=== PATIENT | female | born 1985 | race Caucasian/White ===

== ENCOUNTER 2021-02-23 12:38 | Inpatient (IN) ==
[2021-02-23 13:02] VITALS: BMI 38.2
[2021-02-23] MEDS ORDERED: NS 1000 ML 1,000 ML IV ONE (13:08)
[2021-02-23] MEDS ORDERED: NS 1000 ML 1,000 ML ONE ×3 (13:13→21:19)
--- NOTE | 2021-02-23 13:15 | DR.SOBA ---
HPI Time Seen Time Seen by Provider: 02/23/21 13:07 HPI Comment HPI Comment: Persistent and worsening cough, congestion, fever, chills, body aches and sob for the past 8 days; did a pcr covid test on Thu and does not have results; n/v daily but no stool since Thursday a week ago; quit cig 2014 Complaints Chief Complaint:: PT C/O SHORTNESS OF BREATH, FEVER, C/C/C, N/V. PT STATES SHE HAS NOT BEEN ABLE TO KEEP ANYTHING DOWN FOR DAYS. PT STATES SHE WAS DIAGNOSED LAST THURSDAY WITH COVID. HER SYMPTOMS HAVE JUST BEEN GETTING WROSE COVID-19 Coronavirus risk:travel/contact w/high risk person: Yes Has patient experienced Coronavirus symptoms: Yes Coronavirus symptoms experienced: Fever, Coughing and Shortness of Breath Source History Provided: Patient Mode of Arrival Mode of Arrival: Wheelchair Timing Onset of Chief Complaint: 02/20/21 PMH PMH Past Medical History: Yes Past Medical History: GERD Past Medical History Comment: PCOS Past Surgical History: Yes Surgical History: Hysterectomy Past Surgical History Comment: BACK SURGERY Family History History of Family Medical Conditions: No Social History Does any household member use tobacco: No Alcohol Use: None Do you use any recreational Drugs:: No Lives With: Family Lives Where: Home Travel Risk Coronavirus risk:travel/contact w/high risk person: Yes Has patient experienced Coronavirus symptoms: Yes Coronavirus symptoms experienced: Fever, Coughing and Shortness of Breath Infectious screening In the last 2 months have you had wt loss of >10#?: NO Have you had fever, night sweats or hemotysis?: No Have you traveled outside the country in the last 6 months?: No Isolation: Droplet ROS Review of Systems Eyes: No Symptoms Reported ENTM: No Symptoms Reported Cardiovascular: No Symptoms Reported Genitourinary: No Symptoms Reported Neurological: No Symptoms Reported Integumentary: No Symptoms Reported Hematologic/Lymphatic: No Symptoms Reported Endocrine: No Symptoms Reported Psychiatric: No Symptoms Reported PE Vital Signs Vitals: Temperature 98.9 F Pulse Rate 97 Respiratory Rate 40 Blood Pressure 135/74 O2 Sat by Pulse Oximetry 92 General Limitations: Physical Limitation General Appearance: Alert and In No Apparent Distress (increased wob) Head Head Exam: Normal Inspection Eyes Eye exam: Normal Appearance ENT ENT Exam: Normal Exam Neck Neck Exam: Normal Inspection Chest Chest Inspection: Normal Inspection Respiratory Respiratory Exam: Normal Lung Sounds Bilat, Accessory Muscle Use and Respiratory Distress Respiratory Exam: Bilateral: Clear to Auscultation Cardiovascular Cardiovascular Exam: Regular Rate and Normal Rhythm Abdominal Exam Abdominal Exam: Normal Inspection, Normal Bowel Sounds and Soft Extremities Extremities Exam: Normal Inspection Back Back Exam: Normal Inspection Neurologic Neurological Exam: Alert and Oriented X3 Psychiatric Psychiatric Exam: Normal Affect and Normal Mood Skin Skin Exam: Warm, Dry, Intact and Normal Color MDM Differential Diagnosis Differential Diagnosis: Bronchitis, Pneumonia, Pulmonary embolism, Respiratory Failure, Respiratory Insufficiency and URI COURSE Treatment Treatment: results d/w pt; admission advised ROR Labs Reviewed Result Diagrams: 02/23/21 13:07 02/23/21 13:07 Laboratory: WBC 7.6 X10^3/uL (3.6-10.0) 02/23/21 13:07 RBC 5.04 X10^6/uL (3.5-5.4) 02/23/21 13:07 Hgb 15.3 g/dL (12.0-16.0) 02/23/21 13:07 Hct 44.0 % (36.0-47.0) 02/23/21 13:07 MCV 87.3 fL (80.0-100.0) 02/23/21 13:07 MCH 30.3 pg (27.0-34.0) 02/23/21 13:07 MCHC 34.7 g/dL (33.0-35.0) 02/23/21 13:07 RDW 13.4 % (11.6-16.5) 02/23/21 13:07 Plt Count 228 X10^3/uL (150.0-450.0) 02/23/21 13:07 MPV 8.8 fL (7.4-11.0) 02/23/21 13:07 Neut % (Auto) 76.6 % (42.0-75.0) H 02/23/21 13:07 Lymph % (Auto) 16.9 % (21.0-51.0) L 02/23/21 13:07 Collier % (Auto) 6.1 % (0.0-13.0) 02/23/21 13:07 Eos % (Auto) 0.0 % (0.9-2.9) L 02/23/21 13:07 Baso % (Auto) 0.4 % (0.2-1.0) 02/23/21 13:07 Neut # (Auto) 5.8 x10^3/uL (2.2-4.8) H 02/23/21 13:07 Lymph # (Auto) 1.3 X10^3/uL (1.3-2.9) 02/23/21 13:07 Collier # (Auto) 0.5 x10^3/uL (0.3-0.8) 02/23/21 13:07 Eos # (Auto) 0.0 x10^3/uL (0.0-0.2) 02/23/21 13:07 Baso # (Auto) 0.0 X10^3/uL (0.0-0.1) 02/23/21 13:07 Absolute Nucleated RBC 0.2 /100WBC 02/23/21 13:07 D-Dimer 0.82 ug/ml (0.0-0.57) H* 02/23/21 13:07 Sample Site Rr 02/23/21 13:09 ABG pH 7.510 (7.35-7.45) H 02/23/21 13:09 ABG pCO2 31.0 mmHg (35.0-45.0) L 02/23/21 13:09 ABG pO2 69.0 mmHg (80.0-100.0) L 02/23/21 13:09 ABG HCO3 24.7 mmol/L (22-26) 02/23/21 13:09 ABG O2 Saturation 95.0 % (90-100) 02/23/21 13:09 ABG Base Excess 2.2 mmol/L (-2.0-2.0) H 02/23/21 13:09 Yuval Test Pos 02/23/21 13:09 A-a Gradient 92.0 mmHg 02/23/21 13:09 FiO2 28.0 02/23/21 13:09 Blood Gas Comments Pt [facility] [employer] 02/23/21 13:09 Sodium 141 mmol/L (136-145) 02/23/21 13:07 Corrected Sodium TNP 02/23/21 13:07 Potassium 3.8 mmol/L (3.5-5.1) 02/23/21 13:07 Chloride 101 mmol/L (98-107) 02/23/21 13:07 Carbon Dioxide 28.1 mmol/L (21-32) 02/23/21 13:07 BUN 13 mg/dL (7-18) 02/23/21 13:07 Creatinine 0.69 mg/dL (0.55-1.02) 02/23/21 13:07 Est GFR (MDRD) Af Amer > 60 (>60) 02/23/21 13:07 Est GFR (MDRD) Non-Af > 60 (>60) 02/23/21 13:07 Glucose 106 mg/dL (65-99) H 02/23/21 13:07 Calcium 8.5 mg/dL (8.5-10.1) 02/23/21 13:07 Corrected Calcium TNP 02/23/21 13:07 Ferritin 769 ng/mL (8-252) H 02/23/21 13:07 Total Bilirubin 0.40 mg/dL (0.2-1.0) 02/23/21 13:07 AST 63 Units/L (15-37) H 02/23/21 13:07 ALT 46 Units/L (12-78) 02/23/21 13:07 Alkaline Phosphatase 70 Units/L (46-116) 02/23/21 13:07 C-Reactive Protein 135.10 mg/L (0-3.0) H 02/23/21 13:07 B-Natriuretic Peptide < 5.0 pg/mL (0-79) 02/23/21 13:07 Total Protein 8.3 g/dL (6.4-8.2) H 02/23/21 13:07 Albumin 3.5 g/dL (3.4-5.0) 02/23/21 13:07 Globulin 4.8 g/dL (2.5-4.5) H 02/23/21 13:07 Albumin/Globulin Ratio 0.7 Ratio (1.1-2.1) L 02/23/21 13:07 SARS CoV-2 RNA Rapid PHILLIP Positive (NEGATIVE) A 02/23/21 14:05 XRAY XRAY Interpreted by: Radiologist X-ray Results: cxr: Hazy airspace opacities throughout both lungs compatible history of COVID-19 pneumonia. Opioid Opioid Risk Tool Age (Ming box if 16-45): Yes History of Preadolescent Sexual Abuse: No Total: 1 Total Score Risk Category: Low Risk Copyright: [facility] predicting aberrant behaviors Diagnosis Discharge Problem: COVID-19, Hypoxia, Respiratory insufficiency Bilateral pneumonia Qualifiers: Pneumonia type: due to unspecified organism Lung location: upper lobe of lung Qualified Code(s): J18.9 - Pneumonia, unspecified organism Sepsis Qualifiers: Sepsis type: sepsis due to unspecified organism Sepsis acute organ dysfunction status: with acute organ dysfunction Severe sepsis acute organ dysfunction type: acute respiratory failure Acute respiratory failure type: with hypoxia Severe sepsis shock status: without septic shock Qualified Code(s): A41.9 - Sepsis, unspecified organism Instructions Instructions: Community-Acquired Pneumonia, Adult, [id number] Forms: Patient Portal Social Distancing
[2021-02-23 13:20] LABS: ABG ALLEN TEST POS; ABG BASE EXCESS 2.2 mmol/L (-2.0-2.0); ABG HCO3 24.7 mmol/L (22-26)
[2021-02-23 13:21] LABS: BASOPHILS % (AUTO) 0.4 % (0.2-1.0); HEMOGLOBIN 15.3 g/dL (12.0-16.0); LYMPHOCYTES # (AUTO) 1.3 X10^3/uL (1.3-2.9); LYMPHOCYTES % (AUTO) 16.9 % (21.0-51.0); MEAN CORPUSCULAR HEMOGLOBIN 30.3 pg (27.0-34.0); MEAN CORPUSCULAR HGB CONC 34.7 g/dL (33.0-35.0); MEAN CORPUSCULAR VOLUME 87.3 fL (80.0-100.0); MEAN PLATELET VOLUME 8.8 fL (7.4-11.0); MONOCYTES # (AUTO) 0.5 x10^3/uL (0.3-0.8); MONOCYTES % (AUTO) 6.1 % (0.0-13.0); NEUTROPHILS # (AUTO) 5.8 x10^3/uL (2.2-4.8); NEUTROPHILS % (AUTO) 76.6 % (42.0-75.0); PLATELET COUNT 228 X10^3/uL (150.0-450.0); RED BLOOD COUNT 5.04 X10^6/uL (3.5-5.4); RED CELL DISTRIBUTION WIDTH 13.4 % (11.6-16.5); WHITE BLOOD COUNT 7.6 X10^3/uL (3.6-10.0)
[2021-02-23 13:38] LABS: ALANINE AMINOTRANSFERASE 46 Units/L (12-78); ALKALINE PHOSPHATASE 70 Units/L (46-116); ASPARTATE AMINO TRANSFERASE 63 Units/L (15-37); CARBON DIOXIDE 28.1 mmol/L (21-32); CHLORIDE 101 mmol/L (98-107); SODIUM 141 mmol/L (136-145); TOTAL PROTEIN 8.3 g/dL (6.4-8.2)
--- NOTE | 2021-02-23 13:40 | RAD ---
HISTORYCOVID POSITIVE, SOB, FEVER, HYPOXIA HYSTERECTOMY; BACK SURGERYSTUDYCHEST, 1 VIEWCOMPARISONNoneFINDINGSThe trachea is midline. The cardiac silhouette is unremarkable. The lungs demonstrate hazy infiltrates scattered throughout both lungs compatible history of COVID-19 pneumonia. The bony thorax is unremarkable.IMPRESSIONHazy airspace opacities throughout both lungs compatible history of COVID-19 pneumonia.Electronically signed by: JOSÉ MIGUEL COLE (Feb 23, 2021 13:38:17)
[2021-02-23 13:55] LABS: ALBUMIN 3.5 g/dL (3.4-5.0); BLOOD UREA NITROGEN 13 mg/dL (7-18); CALCIUM 8.5 mg/dL (8.5-10.1); CREATININE 0.69 mg/dL (0.55-1.02); eGFR NON BLACK RACES > 60 (>60)
[2021-02-23] MEDS ORDERED: DECADRON INJ IVP ONE (14:16)
[2021-02-23] MEDS ORDERED: ZOSYN VIAL 3.375 GRAMS 3.375 G in NS 100 ML IV + SPIKE MINIBAG* 100 ML IV ONE (14:16)
[2021-02-23] MEDS ORDERED: DECADRON INJ ONE (14:27)
[2021-02-23] MEDS ORDERED: ZOSYN VIAL 3.375 GRAMS IV ONE ×2 (14:27→21:19)
[2021-02-23] MEDS ORDERED: NS 100 ML IV + SPIKE MINIBAG* 100 ML IV ONE ×2 (14:27→21:19)
[2021-02-23] MEDS ORDERED: TUSSIONEX PENNKINETIC SUSP PO ONE (14:34)
[2021-02-23] MEDS ORDERED: ZOFRAN INJ 4 MG VIAL IVP ONE (14:35)
[2021-02-23] MEDS ORDERED: ZOFRAN INJ 4 MG VIAL ONE (14:36)
[2021-02-23] MEDS ORDERED: TUSSIONEX PENNKINETIC SUSP ONE (14:36)
[2021-02-23] MEDS ORDERED: NS 1000 ML 1,000 ML IV SCH (15:00)
[2021-02-23] MEDS ORDERED: REMDESIVIR 200 MG in NS 100 ML IV 140 ML IV ONE (15:23)
[2021-02-23] MEDS ORDERED: REMDESIVIR IV ONE (15:36)
[2021-02-23] MEDS ORDERED: NS 250 ML IV 250 ML IV ONE (15:37)
[2021-02-23] MEDS: NS 1000 ML 1,000 ML IV SCH (17:37)
[2021-02-23] MEDS: ZOSYN VIAL 3.375 GRAMS 3.375 G in NS 100 ML IV + SPIKE MINIBAG* 100 ML IV SCH ×2 (17:38→22:17)
[2021-02-23] MEDS ORDERED: HumuLIN R SUBCUT PRN (20:29)
[2021-02-23] MEDS ORDERED: PHARMACY CONSULT - IVERMECTIN XX SCH (21:00)
[2021-02-23] MEDS: ACCUNEB 1.25 MG NEBULE NEB SCH (21:00)
[2021-02-23] MEDS: BROVANA IN SCH (21:00)
[2021-02-23] MEDS ORDERED: MELATONIN PO SCH (21:00)
[2021-02-23] MEDS: PULMICORT NEB TX 0.5 MG NEB SCH (21:00)
[2021-02-23] MEDS ORDERED: PROTONIX TAB 40 MG PO ONE (21:17)
[2021-02-23] MEDS ORDERED: LIPITOR TAB 80 MG ONE (21:18)
[2021-02-23] MEDS ORDERED: PERIACTIN TAB 4 MG ONE (21:18)
[2021-02-23] MEDS ORDERED: FLUVOXAMINE MALEATE ONE (21:18)
[2021-02-23] MEDS ORDERED: SOLU-Medrol 40 MG VIAL ONE (21:18)
[2021-02-23] MEDS ORDERED: THIAMINE HCL INJ ONE (21:18)
[2021-02-23] MEDS ORDERED: SINGULAIR TAB 10 MG ONE (21:18)
[2021-02-23] MEDS ORDERED: PEPCID TAB 40 MG ONE (21:18)
[2021-02-23] MEDS ORDERED: TESSALON PERLES PO ONE (21:18)
[2021-02-23] MEDS ORDERED: MELATONIN ONE (21:19)
[2021-02-23] MEDS ORDERED: NS 50 ML IV 50 ML IV ONE (21:19)
[2021-02-23] MEDS ORDERED: ASCORBIC ACID INJ MULTI-DOSE VIAL IV ONE (21:19)
[2021-02-23] MEDS: ASCORBIC ACID INJ MULTI-DOSE VIAL 1,500 MG in NS 50 ML IV 50 ML IV SCH (22:13)
[2021-02-23] MEDS: LIPITOR TAB 80 MG PO SCH (22:14)
[2021-02-23] MEDS: PEPCID TAB 40 MG PO SCH (22:14)
[2021-02-23] MEDS: FLUVOXAMINE MALEATE PO SCH (22:14)
[2021-02-23] MEDS: SINGULAIR TAB 10 MG PO SCH (22:15)
[2021-02-23] MEDS: PROTONIX TAB 40 MG PO SCH (22:15)
[2021-02-23] MEDS: SOLU-Medrol 40 MG VIAL IVP SCH (22:16)
[2021-02-23] MEDS: PERIACTIN TAB 4 MG PO SCH (22:16)
[2021-02-23] MEDS: THIAMINE HCL INJ IVP SCH (22:16)
[2021-02-23] MEDS: TESSALON PERLES PO SCH (22:17)
[2021-02-23 22:24] LABS: CKMB % 0.2 % (<4); CREATINE KINASE 490 Units/L (26-192); CREATINE KINASE MB < 1.0 ng/mL (0-4.0); TROPONIN I < 0.02 ng/mL (0-1.5)
[2021-02-23] MEDS ORDERED: LOVENOX INJ 30 MG SYR SC ONE (22:35)
[2021-02-24] MEDS: LOVENOX INJ 30 MG SYR SC SCH ×3 (00:31→20:34)
--- NOTE | 2021-02-24 00:31 | CT ---
PROCEDURE: CTA Chest .HISTORY: COVID and elevated D-dimer.TECHNIQUE: Axial images were performed through the chest with the administration of IV contrast with multiplanar reformations . 3D and MIPS reconstructions were performed and reviewed. Dose reduction techniques including Automated Exposure Control (AEC) and adjustment of mA and kV were utilized .COMPARISON: None .TECHNICAL QUALITY: Satisfactory .FINDINGS:Normal thoracic aorta with no atherosclerosis, aneurysm, or dissection.No evidence of pulmonary embolus.Mediastinum and hilar regions show no masses or lymphadenopathy.Normal size heart with no pericardial fluid.Moderate patchy ground-glass consolidation both lung conner consistent with COVID-19 pneumonia with no pleural fluid, mass, or pneumothorax.Visualized upper abdomen shows no significant abnormality.No acute bony abnormality.IMPRESSION:1. No pulmonary embolus or aortic dissection.2. Moderate bilateral COVID-19 pneumonia.Electronically signed by: Oc Grimes (Feb 24, 2021 00:28:51)
[2021-02-24] MEDS: IVERMECTIN PO SCH ×2 (00:43→21:13)
[2021-02-24] MEDS: ASCORBIC ACID INJ MULTI-DOSE VIAL 1,500 MG in NS 50 ML IV 50 ML IV SCH ×4 (03:10→20:30)
[2021-02-24] MEDS ORDERED: ZOSYN VIAL 3.375 GRAMS IV ONE ×2 (03:48→12:25)
[2021-02-24] MEDS ORDERED: TESSALON PERLES PO ONE ×2 (03:48→12:25)
[2021-02-24] MEDS ORDERED: SOLU-Medrol 40 MG VIAL ONE ×2 (03:48→12:25)
[2021-02-24] MEDS ORDERED: ASCORBIC ACID INJ MULTI-DOSE VIAL IV ONE ×3 (03:49→12:26)
[2021-02-24] MEDS ORDERED: NS 100 ML IV + SPIKE MINIBAG* 100 ML IV ONE ×2 (03:49→12:26)
[2021-02-24] MEDS ORDERED: NS 50 ML IV 50 ML IV ONE (03:49)
[2021-02-24] MEDS: NS 1000 ML 1,000 ML IV SCH ×2 (05:23→20:30)
[2021-02-24 05:24] LABS: ABG BASE EXCESS 1.7 mmol/L (-2.0-2.0); ABG HCO3 26.6 mmol/L (22-26)
[2021-02-24] MEDS: TESSALON PERLES PO SCH ×3 (05:24→21:12)
[2021-02-24] MEDS: PERIACTIN TAB 4 MG PO SCH ×3 (05:24→21:12)
[2021-02-24] MEDS: ZOSYN VIAL 3.375 GRAMS 3.375 G in NS 100 ML IV + SPIKE MINIBAG* 100 ML IV SCH ×3 (05:24→21:14)
[2021-02-24 05:25] LABS: ABG ALLEN TEST POS
[2021-02-24] MEDS: SOLU-Medrol 40 MG VIAL IVP SCH ×3 (05:25→21:12)
[2021-02-24 06:22] LABS: BASOPHILS % (AUTO) 0.2 % (0.2-1.0); HEMATOCRIT 37.6 % (36.0-47.0); LYMPHOCYTES % (AUTO) 28.2 % (21.0-51.0); MEAN CORPUSCULAR HGB CONC 34.5 g/dL (33.0-35.0); MEAN CORPUSCULAR VOLUME 86.9 fL (80.0-100.0); MEAN PLATELET VOLUME 8.9 fL (7.4-11.0); MONOCYTES # (AUTO) 0.1 x10^3/uL (0.3-0.8); MONOCYTES % (AUTO) 3.8 % (0.0-13.0); NEUTROPHILS # (AUTO) 2.5 x10^3/uL (2.2-4.8); NEUTROPHILS % (AUTO) 67.8 % (42.0-75.0); PLATELET COUNT 245 X10^3/uL (150.0-450.0); RED BLOOD COUNT 4.33 X10^6/uL (3.5-5.4); RED CELL DISTRIBUTION WIDTH 13.4 % (11.6-16.5); WHITE BLOOD COUNT 3.7 X10^3/uL (3.6-10.0)
[2021-02-24 06:23] LABS: ALANINE AMINOTRANSFERASE 51 Units/L (12-78); ALBUMIN 2.7 g/dL (3.4-5.0); ALKALINE PHOSPHATASE 58 Units/L (46-116); ASPARTATE AMINO TRANSFERASE 68 Units/L (15-37); BLOOD UREA NITROGEN 10 mg/dL (7-18); CALCIUM 7.8 mg/dL (8.5-10.1); CARBON DIOXIDE 27.1 mmol/L (21-32); CHLORIDE 106 mmol/L (98-107); COR CA(FOR HYPOALB) 8.8 mg/dL (8.5-10.1); COR NA(FOR HYPERGLY) 143 mmol/L (136-145); CREATININE 0.73 mg/dL (0.55-1.02); SODIUM 142 mmol/L (136-145); TOTAL PROTEIN 6.9 g/dL (6.4-8.2); eGFR NON BLACK RACES > 60 (>60)
[2021-02-24] MEDS ORDERED: FLUVOXAMINE MALEATE ONE (07:08)
[2021-02-24] MEDS ORDERED: THIAMINE HCL INJ ONE (07:08)
[2021-02-24] MEDS ORDERED: ZyrTEC TAB 10 MG ONE (07:08)
[2021-02-24] MEDS ORDERED: PROTONIX TAB 40 MG PO ONE (07:08)
--- NOTE | 2021-02-24 07:08 | RAD ---
HISTORYCOVID-19 SOBSTUDYPortable AP [id number] normal heart size and contour. Persistent bilateral pulmon jeromy infiltrates are present, similar in the right lung and slightly increased in the left lung. No pl eural fluid or pneumothorax seen.IMPRESSIONPersistent bilateral pneumonia, with slight interval progr ession.Electronically signed by: CUBA MCGARRY (Feb 24, 2021 07:06:02)
[2021-02-24] MEDS ORDERED: PEPCID TAB 40 MG ONE (07:09)
[2021-02-24] MEDS ORDERED: VITAMIN D3 125 mcg (5,000 UNITS) ONE (07:09)
[2021-02-24] MEDS ORDERED: NS 100 ML IV 100 ML ONE ×3 (07:09→12:26)
[2021-02-24] MEDS ORDERED: COLACE CAP 100 MG PO ONE (07:09)
[2021-02-24] MEDS ORDERED: ZINC SULFATE ONE (07:09)
[2021-02-24] MEDS ORDERED: REMDESIVIR IV ONE (07:09)
[2021-02-24] MEDS ORDERED: LOVENOX INJ 30 MG SYR SC ONE (07:09)
[2021-02-24] MEDS ORDERED: NS 250 ML IV 250 ML IV ONE (07:10)
[2021-02-24] MEDS: COLACE CAP 100 MG PO SCH ×2 (08:34→20:32)
[2021-02-24] MEDS: FLUVOXAMINE MALEATE PO SCH ×2 (08:35→20:32)
[2021-02-24] MEDS: MILK OF MAGNESIA PO SCH ×2 (08:36→20:35)
[2021-02-24] MEDS: REMDESIVIR 100 MG in NS 250 ML IV 250 ML IV SCH (08:37)
[2021-02-24] MEDS: PROTONIX TAB 40 MG PO SCH ×2 (08:37→20:33)
[2021-02-24] MEDS: PEPCID TAB 40 MG PO SCH ×2 (08:37→20:33)
[2021-02-24] MEDS: THIAMINE HCL INJ IVP SCH ×2 (08:38→20:34)
[2021-02-24] MEDS: VITAMIN D3 125 mcg (5,000 UNITS) PO SCH (08:38)
[2021-02-24] MEDS: ZINC SULFATE PO SCH (08:39)
[2021-02-24] MEDS: ZyrTEC TAB 10 MG PO SCH (08:40)
[2021-02-24] MEDS ORDERED: DECADRON INJ IV SCH (09:00)
[2021-02-24] MEDS ORDERED: REMDESIVIR 100 MG in NS 250 ML IV 250 ML IV SCH (09:00)
[2021-02-24 09:17] LABS: BILIRUBIN,URINE NEGATIVE (NEGATIVE); BLOOD/HEMOGLOBIN,URINE NEGATIVE (NEGATIVE); GLUCOSE, URINE NEGATIVE (NEGATIVE); KETONES,URINE 4+ (NEGATIVE); LEUKOCYTE ESTERASE ,URINE NEGATIVE (NEGATIVE); NITRITES,URINE NEGATIVE (NEGATIVE); PROTEIN,URINE 2+ (NEGATIVE); UROBILINOGEN,URINE NORMAL (NORMAL)
[2021-02-24] MEDS: ACCUNEB 1.25 MG NEBULE NEB SCH (09:27)
[2021-02-24] MEDS: PULMICORT NEB TX 0.5 MG NEB SCH ×2 (09:27→20:12)
[2021-02-24] MEDS: BROVANA IN SCH ×2 (09:27→20:12)
[2021-02-24 09:28] LABS: APPEARANCE,URINE CLEAR (CLEAR); BACTERIA,URINE NEGATIVE /HPF (NEGATIVE); COLOR,URINE YELLOW (YELLOW); MUCUS,URINE FEW /HPF (NEGATIVE); SQUAMOUS EPITHELIAL CELL,UR RARE /HPF (NEGATIVE)
--- NOTE | 2021-02-24 11:35 | DR.H&P ---
H&P - History & Physical for Day of: H&P Date: 02/23/21 - Chief Complaint Chief Complaint: FEVER, C/C/C, SOB - History of Present Illness History of Present Illness: IS A 35 YEAR OLD WHITE FEMALE. SHE PRESENTED TO THE ER WITH COMPLAINTS OF A NON-PRODUCTIVE COUGH, SHORTNESS OF BREATH, FEVER, AND GENERALIZED BODY ACHES. SHE ALSO ADMITS TO NAUSEA AND VOMITING. PATIENT REPORTS BEING TESTED POSITIVE FOR COVID-19 4 DAYS AGO, BUT DOES NOT KNOW THE RESULTS AT THIS TIME. SHE REPORTS THAT SYMPTOMS STARTED ABOUT 8-9 DAYS AGO. HER PMH INCLUDES: GERD, PCOS. AUSCULTATION OF BILATERAL LUNG VARGAS REVEALED SCATTERED RHONCHI. ON ARRIVAL TO THE ER, VITALS WERE 98.6-524-41HV-82%-129/74. SHE WAS PLACED ON OXYGEN VIA NASAL CANNULA AT 3LPM. SATURATIONS INCREASED TO 92%. WHILE AMBULATING, SATURATIONS DECREASE TO THE 70s ON 3LPM. LABS WERE OBTAINED. ABNORMAL LAB VALUES INCLUDED THE FOLLOWING: E-DIMER 0.82, GLUCOSE 106, FERRITIN 769, AST 63, CRP 135.10, TOTAL PROTEIN 8.3, GLOBULIN 4.8. COVID-19 POSITIVE. AN ABG WAS OBTAINED AND REVEALED: PH 7.510, PC02 31, P02 69, HC03 24.7, 02 SAT 95, BASE EXCESS 2.2, A-A GRADIENT 92, FI02 28. BLOOD CULTURES WERE SET UP. CHEST XRAY WAS OBTAINED AND REVEALED: Hazy airspace opacities throughout both lungs compatible history of COVID-19 pneumonia. CHEST CTA OBTAINED AND REVEALED: 1. No pulmonary embolus or aortic dissection. 2. Moderate bilateral COVID-19 pneumonia. EKG REVEALED: SINUS RHYTHM WITH HR 97. IN THE ER, SHE WAS GIVEN A NORMAL SALINE BOLUS, ZOSYN 3.375G IV X 1, DECADRON 4MG IV X 1, TUSSIONEX 5ML PO X 1, ZOFRAN 4MG IV X 1, REMDESIVIR 200MG IV X 1. SHE WAS ADMITTED TO THE HOSPITAL FOR FURTHER EVALUATION AND TREATMENT OF PNEUMONIA DUE TO COVID-19 AND HYPOXIA. HE WAS STARTED ON NS AT 80 ML/HR, ZOSYN 3.375G IV TID, REMDESIVIR 100MG IV DAILY, ASCORBIC ACID 1500MG IV Q6H, ALBUTEROL NEBS QID, PULMICORT NEBS BID, BROVANA INHALER BID, SOLU-MEDROL 80MG IV8H, FLUVOXAMINE 50MG PO BID, CYPROHEPTADINE 8MG PO TID, LOVENOX 30MG SC Q12H, LIPITOR 80MG PO HS, TESSALON PERLES 200MG PO TID, CETIRIZINE 10MG PO DAILY, IVERMECTIN, PEPCID 40MG PO BID, ROBITUSSIN DM 10ML PO QID PRN, HUMULIN R SLIDING SCALE, SINGULAIR 10MG PO HS, PROTONIX 40MG PO BID, MILK OF MAGNESIA 30ML PO BID, COLACE 100MG PO BID, THIAMINE 200MG IV BID, AND ZINC SULFATE 220MG PO BID. OTHERWISE, WE PLAN TO FOLLOW UP WITH AM LABS AND CHEST XRAY AND CONTINUE TO MONITOR. WE WILL ALSO OBTAIN A CHEST CTA TO RULE OUT PE AND AN ECHO. TIME SPENT ON CLINICAL ASSESSMENT, REVIEWING LABS AND IMAGING, DECISION MAKING, AND DOCUMENTATION GREATER THAN 75 MINUTES. - Past Medical History Past Medical History: GERD Additional Medical History: PCOS - Past Surgical History Surgical History: Hysterectomy, Ortho Surgery (BACK SURGERY ) - Family History Family Medical History: Heart Failure, Hypertension - Social History Does any household member use tobacco: No Alcohol Use: None Drug Use: None - Medications Home Medications: prednisone Adverse Reaction (Verified 02/23/21 13:08) anxiety, mouth ulcer CONTINUE taking the following medications NK 02/24/21 [History] - Review of Systems Constitutional: See HPI, Fever, Chills, Weakness Eyes: No Symptoms Reported ENT: No Symptoms Reported Respiratory: Cough, Shortness of Breath, SOB with Excertion Cardiovascular: No Symptoms Reported Gastrointestinal: No Symptoms Reported Genitourinary: No Symptoms Reported Musculoskeletal: No Symptoms Reported Skin: No Symptoms Reported Neurological: Weakness - Physical Exam Vital Signs: Temperature 98.1 F Pulse Rate [Left Brachial] 75 Pulse Rate 65 Respiratory Rate 32 Blood Pressure [Left Arm] 123/68 Blood Pressure 136/88 O2 Sat by Pulse Oximetry 86 Oriented: Normal Eyes: Normal Ear: Normal Nose: Normal Throat: Normal Respiratory: Diminished Throughout, Rhonchi Throughout Cardiovascular: Tachycardia : Normal Auscultation: Bowel Sounds: Normal Palpation: Normal Tenderness: Normal Skin: Normal Musculoskeletal: Normal Psychiatric: Normal Mood Description: Calm Affect: Normal Speech Pattern: Clear - Assessment/Plan (1) Pneumonia due to COVID-19 virus Status: Acute Plan: ADMIT, SUPPLEMENTAL OXYGEN, NS AT 80 ML/HR, ZOSYN 3.375G IV TID, REMDESIVIR 100MG IV DAILY, ASCORBIC ACID 1500MG IV Q6H, ALBUTEROL NEBS QID, PULMICORT NEBS BID, BROVANA INHALER BID, SOLU-MEDROL 80MG IV8H, FLUVOXAMINE 50MG PO BID, CYPROHEPTADINE 8MG PO TID, LOVENOX 30MG SC Q12H, LIPITOR 80MG PO HS, TESSALON PERLES 200MG PO TID, CETIRIZINE 10MG PO DAILY, IVERMECTIN, PEPCID 40MG PO BID, ROBITUSSIN DM 10ML PO QID PRN, HUMULIN R SLIDING SCALE, SINGULAIR 10MG PO HS, PROTONIX 40MG PO BID, MILK OF MAGNESIA 30ML PO BID, COLACE 100MG PO BID, THIAMINE 200MG IV BID, AND ZINC SULFATE 220MG PO BID. (2) Hypoxia Status: Acute - Allergies Allergies/Adverse Reactions: Allergies Allergy/AdvReac Type Severity Reaction Status Date / Time prednisone AdvReac anxiety, Verified 02/23/21 13:08 mouth ulcer
[2021-02-24] MEDS: SNACK - Diabetic Appropriate PO SCH (20:30)
[2021-02-24] MEDS: SINGULAIR TAB 10 MG PO SCH (20:33)
[2021-02-24] MEDS: LIPITOR TAB 80 MG PO SCH (20:34)
[2021-02-25] MEDS: ASCORBIC ACID INJ MULTI-DOSE VIAL 1,500 MG in NS 50 ML IV 50 ML IV SCH ×4 (02:00→21:03)
[2021-02-25 04:37] LABS: ABG BASE EXCESS 3.2 mmol/L (-2.0-2.0); ABG HCO3 27.9 mmol/L (22-26)
[2021-02-25 04:39] LABS: ABG ALLEN TEST POS
[2021-02-25] MEDS: TESSALON PERLES PO SCH ×3 (05:06→21:04)
[2021-02-25] MEDS: ZOSYN VIAL 3.375 GRAMS 3.375 G in NS 100 ML IV + SPIKE MINIBAG* 100 ML IV SCH ×3 (05:06→21:06)
[2021-02-25] MEDS: SOLU-Medrol 40 MG VIAL IVP SCH ×3 (05:06→21:03)
[2021-02-25] MEDS: PERIACTIN TAB 4 MG PO SCH ×3 (05:06→21:05)
[2021-02-25 07:28] LABS: BASOPHILS % (AUTO) 0.2 % (0.2-1.0); HEMATOCRIT 36.5 % (36.0-47.0); HEMOGLOBIN 12.5 g/dL (12.0-16.0); LYMPHOCYTES # (AUTO) 1.8 X10^3/uL (1.3-2.9); LYMPHOCYTES % (AUTO) 17.7 % (21.0-51.0); MEAN CORPUSCULAR HEMOGLOBIN 29.8 pg (27.0-34.0); MEAN CORPUSCULAR HGB CONC 34.2 g/dL (33.0-35.0); MEAN CORPUSCULAR VOLUME 87.1 fL (80.0-100.0); MONOCYTES # (AUTO) 0.6 x10^3/uL (0.3-0.8); MONOCYTES % (AUTO) 5.8 % (0.0-13.0); NEUTROPHILS # (AUTO) 7.9 x10^3/uL (2.2-4.8); NEUTROPHILS % (AUTO) 76.3 % (42.0-75.0); PLATELET COUNT 268 X10^3/uL (150.0-450.0); RED CELL DISTRIBUTION WIDTH 13.5 % (11.6-16.5); WHITE BLOOD COUNT 10.4 X10^3/uL (3.6-10.0)
[2021-02-25 07:36] LABS: ALANINE AMINOTRANSFERASE 68 Units/L (12-78); ALBUMIN 2.4 g/dL (3.4-5.0); ALKALINE PHOSPHATASE 52 Units/L (46-116); ASPARTATE AMINO TRANSFERASE 65 Units/L (15-37); BLOOD UREA NITROGEN 18 mg/dL (7-18); CALCIUM 7.7 mg/dL (8.5-10.1); CARBON DIOXIDE 28.8 mmol/L (21-32); CHLORIDE 110 mmol/L (98-107); COR NA(FOR HYPERGLY) 148 mmol/L (136-145); CREATININE 0.76 mg/dL (0.55-1.02); SODIUM 147 mmol/L (136-145); TOTAL PROTEIN 6.1 g/dL (6.4-8.2); eGFR NON BLACK RACES > 60 (>60)
--- NOTE | 2021-02-25 08:04 | RAD ---
HISTORYSOBSTUDYCHEST, 1 [id number]/2021FINDINGSThe lungs are better inflated than on the prior study.Patchy bilateral areas of opacity are consistent with bronchopneumonia. No pleural effusion or pneumothorax.The heart size is magnified.Bones are unremarkable.IMPRESSION1. Improved aeration2. Unchanged bronchopneumoniaElectronically signed by: Conner Ortiz (Feb 25, 2021 08:02:45)
[2021-02-25] MEDS: PULMICORT NEB TX 0.5 MG NEB SCH ×2 (08:25→20:25)
[2021-02-25] MEDS: BROVANA IN SCH ×2 (08:25→20:25)
[2021-02-25] MEDS: REMDESIVIR 100 MG in NS 250 ML IV 250 ML IV SCH (09:26)
[2021-02-25] MEDS: ZyrTEC TAB 10 MG PO SCH (09:27)
[2021-02-25] MEDS: ZINC SULFATE PO SCH (09:27)
[2021-02-25] MEDS: PROTONIX TAB 40 MG PO SCH ×2 (09:28→21:05)
[2021-02-25] MEDS: VITAMIN D3 125 mcg (5,000 UNITS) PO SCH (09:28)
[2021-02-25] MEDS: THIAMINE HCL INJ IVP SCH ×2 (09:28→21:05)
[2021-02-25] MEDS: MILK OF MAGNESIA PO SCH ×2 (09:29→21:05)
[2021-02-25] MEDS: LOVENOX INJ 30 MG SYR SC SCH ×2 (09:29→21:05)
[2021-02-25] MEDS: PEPCID TAB 40 MG PO SCH ×2 (09:29→21:05)
[2021-02-25] MEDS: FLUVOXAMINE MALEATE PO SCH ×2 (09:30→21:04)
[2021-02-25] MEDS: COLACE CAP 100 MG PO SCH ×2 (09:30→21:04)
[2021-02-25] MEDS ORDERED: NS 100 ML IV 100 ML ONE ×2 (10:48→14:29)
[2021-02-25] MEDS: ACCUNEB 1.25 MG NEBULE NEB SCH ×3 (11:45→20:25)
[2021-02-25] MEDS: MUCOMYST (RESPIRATORY USE ONLY) NEB SCH ×3 (11:45→20:25)
[2021-02-25] MEDS: NS 1000 ML 1,000 ML IV SCH ×2 (18:16→21:03)
[2021-02-25] MEDS: SNACK - Diabetic Appropriate PO SCH (20:00)
[2021-02-25] MEDS: SINGULAIR TAB 10 MG PO SCH (21:04)
[2021-02-25] MEDS: LIPITOR TAB 80 MG PO SCH (21:05)
--- NOTE | 2021-02-25 21:55 | PCM.PROG ---
Progress Note - Progress Note for Day of Date of Exam: 02/25/21 - Subjective Subjective: MS. SANDERS WAS ADMITTED FOR TREATMENT OF COVID PNEUMONIA AND HYPOXIA. TODAY, SHE IS ALERT AND ORIENTED, LYING IN THE BED ON MORNING ROUNDS. SHE IS CURRENTLY UTILIZING HEATED HIGH FLOW OXYGEN AT 95%. SHE CONTINUES WITH COMPLAINTS OF SHORTNESS OF BREATH AND WEAKNESS TODAY. SHORTNESS OF BREATH AND COUGH SLIGHTLY INCREASED. HER SATURATIONS HAVE BEEN 84-92% THIS MORNING AND THROUGHOUT THE NIGHT. ON EXAMINATION, HEART IS REGULAR IN RATE AND RHYTHM. BILATERAL LUNGS ARE NOTED WITH WHEEZING THROUGHOUT. ABDOMEN IS ROUND, SOFT, AND NON-TENDER WITH NORMAL BOWEL SOUNDS NOTED IN ALL QUADRANTS. HIS VITALS THIS MORNING ARE: 98.4-62-21-88%-110/62. LABS WERE OBTAINED. ABNORMAL LAB VALUES INCLUDE THE FOLLOWING: WBC 10.4, SODIUM 147, POTASSIUM 3.2, CHLORIDE 110, GLUCOSE 146, CALCIUM 7.7, FERRITIN 800, AST 65, CRP 32.10, BNP 136, TOTAL PROTEIN 6.1, ALBUMIN 2.4. BLOOD CULTURES ARE PENDING. ABG REVEALED: PH 7.430, PC02 42, P02 49, HC03 27.9, 02 SAT 85, BASE EXCESS 3.2, A-A GRADIENT 562, FI02 93. BLOOD CULTURES ARE PENDING. A CHEST XRAY WAS OBTAINED AND REVEALED: 1. Improved aeration 2. Unchanged bronchopneumonia. CHEST CTA WAS OBTAINED YESTERDAY AND REVEALED: 1. No pulmonary embolus or aortic dissection. 2. Moderate bilateral COVID-19 pneumonia. SHE IS CURRENTLY RECEIVING NS AT 80 ML/HR, ZOSYN 3.375G IV TID, REMDESIVIR 100MG IV DAILY, ASCORBIC ACID 1500MG IV Q6H, ALBUTEROL NEBS QID, PULMICORT NEBS BID, BROVANA INHALER BID, SOLU-MEDROL 80MG IV8H, FLUVOXAMINE 50MG PO BID, CYPROHEPTADINE 8MG PO TID, LOVENOX 30MG SC Q12H, LIPITOR 80MG PO HS, TESSALON PERLES 200MG PO TID, CETIRIZINE 10MG PO DEE Y, IVERMECTIN, PEPCID 40MG PO BID, ROBITUSSIN DM 10ML PO QID PRN, HUMULIN R SLIDING SCALE, SINGULAIR 10MG PO HS, PROTONIX 40MG PO BID, MILK OF MAGNESIA 30ML PO BID, COLACE 100MG PO BID, THIAMINE 200MG IV BID, AND ZINC SULFATE 220MG PO BID. WE WILL CONTINUE WITH CURRENT PLAN OF CARE TODAY AND ATTEMPT TO WEAN DOWN OXYGEN SHE TOLERATES IT. WE WILL ADD MUCOMYST TO NEBULIZER TREATMENTS. OTHERWISE, WE WILL FOLLOW UP WITH AM LABS, CHEST XRAY, ABG, AND CONTINUE TO MONITOR. TIME SPENT ON CLINICAL ASSESSMENT, REVIEWING LABS AND IMAGING, DECISION MAKING, AND DOCUMENTATION GREATER THAN 45 MINUTES. - Past Medical Family Social History Past Med/Fam/Surg Hx: No changes since H&P Allergies: Allergies prednisone Adverse Reaction (Verified 02/23/21 13:08) anxiety, mouth ulcer high doses - Review of Systems ROS: No change since H&P - Vital Signs and I&O's Vital Signs: Temperature 97.7 F Pulse Rate [Left Brachial] 75 Pulse Rate 56 Respiratory Rate 26 Blood Pressure [Left Arm] 123/68 Blood Pressure 113/66 O2 Sat by Pulse Oximetry 87 Intake and Output: Intake & Output 02/23/21 02/24/21 02/25/21 02/26/21 11:59 11:59 11:59 11:59 Intake Total 2668 / 2668 2878 / 2878 330 / 330 Output Total 1950 / 1950 500 / 500 Balance 2668 / 2668 928 / 928 -170 / -170 - Physical Exam Oriented: Normal Eyes: Normal Ear: Normal Nose: Normal Throat: Normal Respiratory: Generalized, Diminished, Wheezes Cardiovascular: Normal : Normal Auscultation: Bowel Sounds: Normal Palpation: Normal Tenderness: Normal Skin: Normal Musculoskeletal: Normal Psychiatric: Normal Mood Description: Calm Affect: Normal Speech Pattern: Clear, Appropriate - Laboratory and Diagnostics Result Diagrams: 02/25/21 05:36 02/25/21 05:36 Labs: 02/23/21 21:33 Blood Blood Culture - Preliminary 02/23/21 18:39 Blood Blood Culture - Preliminary Laboratory WBC 10.4 X10^3/uL (3.6-10.0) H 02/25/21 05:36 RBC 4.20 X10^6/uL (3.5-5.4) 02/25/21 05:36 Hgb 12.5 g/dL (12.0-16.0) 02/25/21 05:36 Hct 36.5 % (36.0-47.0) 02/25/21 05:36 MCV 87.1 fL (80.0-100.0) 02/25/21 05:36 MCH 29.8 pg (27.0-34.0) 02/25/21 05:36 MCHC 34.2 g/dL (33.0-35.0) 02/25/21 05:36 RDW 13.5 % (11.6-16.5) 02/25/21 05:36 Plt Count 268 X10^3/uL (150.0-450.0) 02/25/21 05:36 MPV 9.0 fL (7.4-11.0) 02/25/21 05:36 Neut % (Auto) 76.3 % (42.0-75.0) H 02/25/21 05:36 Lymph % (Auto) 17.7 % (21.0-51.0) L 02/25/21 05:36 Dickenson % (Auto) 5.8 % (0.0-13.0) 02/25/21 05:36 Eos % (Auto) 0.0 % (0.9-2.9) L 02/25/21 05:36 Baso % (Auto) 0.2 % (0.2-1.0) 02/25/21 05:36 Neut # (Auto) 7.9 x10^3/uL (2.2-4.8) H 02/25/21 05:36 Lymph # (Auto) 1.8 X10^3/uL (1.3-2.9) 02/25/21 05:36 Dickenson # (Auto) 0.6 x10^3/uL (0.3-0.8) 02/25/21 05:36 Eos # (Auto) 0.0 x10^3/uL (0.0-0.2) 02/25/21 05:36 Baso # (Auto) 0.0 X10^3/uL (0.0-0.1) 02/25/21 05:36 Absolute Nucleated RBC 0.1 /100WBC 02/25/21 05:36 D-Dimer 0.53 ug/ml (0.0-0.57) 02/25/21 05:36 Sample Site Rr 02/25/21 04:35 ABG pH 7.430 (7.35-7.45) 02/25/21 04:35 ABG pCO2 42.0 mmHg (35.0-45.0) 02/25/21 04:35 ABG pO2 49.0 mmHg (80.0-100.0) L* 02/25/21 04:35 ABG HCO3 27.9 mmol/L (22-26) H 02/25/21 04:35 ABG O2 Saturation 85.0 % (90-100) L 02/25/21 04:35 ABG Base Excess 3.2 mmol/L (-2.0-2.0) H 02/25/21 04:35 Yuval Test Pos 02/25/21 04:35 A-a Gradient 562.0 mmHg 02/25/21 04:35 FiO2 93.0 02/25/21 04:35 Blood Gas Comments Jacy well sw 02/25/21 04:35 Sodium 147 mmol/L (136-145) H 02/25/21 05:36 Corrected Sodium 148 mmol/L (136-145) H 02/25/21 05:36 Potassium 3.2 mmol/L (3.5-5.1) L 02/25/21 05:36 Chloride 110 mmol/L (98-107) H 02/25/21 05:36 Carbon Dioxide 28.8 mmol/L (21-32) 02/25/21 05:36 BUN 18 mg/dL (7-18) 02/25/21 05:36 Creatinine 0.76 mg/dL (0.55-1.02) 02/25/21 05:36 Est GFR (MDRD) Af Amer > 60 (>60) 02/25/21 05:36 Est GFR (MDRD) Non-Af > 60 (>60) 02/25/21 05:36 Glucose 146 mg/dL (65-99) H 02/25/21 05:36 Lactic Acid 1.1 mmol/L (0.4-2.0) 02/23/21 18:39 Calcium 7.7 mg/dL (8.5-10.1) L 02/25/21 05:36 Corrected Calcium 9.0 mg/dL (8.5-10.1) 02/25/21 05:36 Ferritin 800 ng/mL (8-252) H 02/25/21 05:36 Total Bilirubin 0.20 mg/dL (0.2-1.0) 02/25/21 05:36 AST 65 Units/L (15-37) H 02/25/21 05:36 ALT 68 Units/L (12-78) 02/25/21 05:36 Alkaline Phosphatase 52 Units/L (46-116) 02/25/21 05:36 Creatine Kinase 490 Units/L (26-192) H 02/23/21 21:33 CK-MB (CK-2) < 1.0 ng/mL (0-4.0) 02/23/21 21:33 CK/CKMB % Calc 0.2 % (<4) 02/23/21 21:33 Troponin I < 0.02 ng/mL (0-1.5) 02/23/21 21:33 C-Reactive Protein 32.10 mg/L (0-3.0) H 02/25/21 05:36 B-Natriuretic Peptide 136 pg/mL (0-79) H 02/25/21 05:36 Total Protein 6.1 g/dL (6.4-8.2) L 02/25/21 05:36 Albumin 2.4 g/dL (3.4-5.0) L 02/25/21 05:36 Globulin 3.7 g/dL (2.5-4.5) 02/25/21 05:36 Albumin/Globulin Ratio 0.6 Ratio (1.1-2.1) L 02/25/21 05:36 Specimen Type Catherized urine 02/24/21 09:08 Urine Color Yellow (YELLOW) 02/24/21 09:08 Urine Appearance Clear (CLEAR) 02/24/21 09:08 Urine pH 6.0 (5.0 - 8.0) 02/24/21 09:08 Ur Specific [place] 1.015 (1.000-1.030) 02/24/21 09:08 Urine Protein 2+ (NEGATIVE) 02/24/21 09:08 Urine Glucose (UA) Negative (NEGATIVE) 02/24/21 09:08 Urine Ketones 4+ (NEGATIVE) 02/24/21 09:08 Urine Occult Blood Negative (NEGATIVE) 02/24/21 09:08 Urine Nitrite Negative (NEGATIVE) 02/24/21 09:08 Urine Bilirubin Negative (NEGATIVE) 02/24/21 09:08 Urine Urobilinogen Normal (NORMAL) 02/24/21 09:08 Ur Leukocyte Esterase Negative (NEGATIVE) 02/24/21 09:08 Urine RBC 3-5 /HPF (0-3) A 02/24/21 09:08 Urine WBC 3-5 /HPF (0-5) 02/24/21 09:08 Ur Squamous Epith Cells Rare /HPF (NEGATIVE) 02/24/21 09:08 Urine Bacteria Negative /HPF (NEGATIVE) 02/24/21 09:08 Urine Mucus Few /HPF (NEGATIVE) 02/24/21 09:08 Ur Culture Indicated? No/not indicated 02/24/21 09:08 SARS CoV-2 RNA Rapid PHILLIP Positive (NEGATIVE) A 02/23/21 14:05 - Plan (1) Pneumonia due to COVID-19 virus Status: Acute Plan: SUPPLEMENTAL OXYGEN, NS AT 80 ML/HR, ZOSYN 3.375G IV TID, REMDESIVIR 100MG IV DAILY, ASCORBIC ACID 1500MG IV Q6H, ALBUTEROL NEBS QID, PULMICORT NEBS BID, BROVANA INHALER BID, MUCOMUST IN NEB TX, SOLU-MEDROL 80MG IV8H, FLUVOXAMINE 50MG PO BID, CYPROHEPTADINE 8MG PO TID, LOVENOX 30MG SC Q12H, LIPITOR 80MG PO HS, TESSALON PERLES 200MG PO TID, CETIRIZINE 10MG PO DAILY, IVERMECTIN, PEPCID 40MG PO BID, ROBITUSSIN DM 10ML PO QID PRN, HUMULIN R SLIDING SCALE, SINGULAIR 10MG PO HS, PROTONIX 40MG PO BID, MILK OF MAGNESIA 30ML PO BID, COLACE 100MG PO BID, THIAMINE 200MG IV BID, AND ZINC SULFATE 220MG PO BID. (2) Hypoxia Status: Acute
[2021-02-25] MEDS: IVERMECTIN PO SCH (22:52)
[2021-02-26] MEDS ORDERED: POTASSIUM CHLORIDE LIQ 20 MEQ UDC PO PRN (01:19)
[2021-02-26] MEDS ORDERED: KLOR-CON PO PRN (01:19)
[2021-02-26] MEDS ORDERED: POTASSIUM CHL 60 MEQ/NS 0.45% 500 ML IV PRN (01:19)
[2021-02-26] MEDS ORDERED: POTASSIUM CHL 40 MEQ/NS 0.45% 500 ML IV PRN (01:19)
[2021-02-26] MEDS ORDERED: MICRO K EXTEN CAP 10 MEQ PO PRN (01:19)
[2021-02-26] MEDS ORDERED: K-RIDER 10 MEQ/NS 100 ML 10 MEQ/100 ML BAG IV PRN (01:19)
[2021-02-26] MEDS: ASCORBIC ACID INJ MULTI-DOSE VIAL 1,500 MG in NS 50 ML IV 50 ML IV SCH ×4 (02:32→21:16)
[2021-02-26 04:52] LABS: ABG BASE EXCESS 6.4 mmol/L (-2.0-2.0)
[2021-02-26 04:55] LABS: ABG ALLEN TEST POS; ABG HCO3 30.5 mmol/L (22-26)
[2021-02-26] MEDS: SOLU-Medrol 40 MG VIAL IVP SCH ×3 (05:11→21:20)
[2021-02-26] MEDS: ZOSYN VIAL 3.375 GRAMS 3.375 G in NS 100 ML IV + SPIKE MINIBAG* 100 ML IV SCH ×2 (05:11→15:41)
[2021-02-26] MEDS: TESSALON PERLES PO SCH ×3 (05:11→21:20)
[2021-02-26] MEDS: PERIACTIN TAB 4 MG PO SCH ×3 (05:11→21:19)
[2021-02-26] MEDS: ACCUNEB 1.25 MG NEBULE NEB SCH ×2 (05:37→20:40)
[2021-02-26] MEDS: MUCOMYST (RESPIRATORY USE ONLY) NEB SCH ×2 (05:37→20:40)
[2021-02-26 07:04] LABS: BASOPHILS % (AUTO) 0.1 % (0.2-1.0); HEMATOCRIT 37.1 % (36.0-47.0); HEMOGLOBIN 12.4 g/dL (12.0-16.0); LYMPHOCYTES # (AUTO) 1.8 X10^3/uL (1.3-2.9); LYMPHOCYTES % (AUTO) 11.8 % (21.0-51.0); MEAN CORPUSCULAR HEMOGLOBIN 29.3 pg (27.0-34.0); MEAN CORPUSCULAR HGB CONC 33.4 g/dL (33.0-35.0); MEAN CORPUSCULAR VOLUME 87.6 fL (80.0-100.0); MEAN PLATELET VOLUME 9.1 fL (7.4-11.0); MONOCYTES # (AUTO) 1.2 x10^3/uL (0.3-0.8); MONOCYTES % (AUTO) 8.1 % (0.0-13.0); NEUTROPHILS # (AUTO) 12.2 x10^3/uL (2.2-4.8); PLATELET COUNT 307 X10^3/uL (150.0-450.0); RED BLOOD COUNT 4.24 X10^6/uL (3.5-5.4); RED CELL DISTRIBUTION WIDTH 13.7 % (11.6-16.5); WHITE BLOOD COUNT 15.2 X10^3/uL (3.6-10.0)
[2021-02-26 07:22] LABS: ALANINE AMINOTRANSFERASE 52 Units/L (12-78); ALBUMIN 2.5 g/dL (3.4-5.0); ALKALINE PHOSPHATASE 50 Units/L (46-116); ASPARTATE AMINO TRANSFERASE 38 Units/L (15-37); BLOOD UREA NITROGEN 22 mg/dL (7-18); CALCIUM 7.7 mg/dL (8.5-10.1); CARBON DIOXIDE 30.4 mmol/L (21-32); CHLORIDE 111 mmol/L (98-107); COR CA(FOR HYPOALB) 8.9 mg/dL (8.5-10.1); COR NA(FOR HYPERGLY) 150 mmol/L (136-145); CREATININE 0.89 mg/dL (0.55-1.02); MAGNESIUM 2.6 mg/dL (1.7-2.9); SODIUM 149 mmol/L (136-145); eGFR NON BLACK RACES > 60 (>60)
--- NOTE | 2021-02-26 08:04 | RAD ---
HISTORYSOBSTUDYCHEST, 1 [id number] patchy bilateral areas of airspace opacity are present consistent with bronchopneumonia. No change from yesterday.There may be a small left effusion. No pneumothorax.The heart size is magnified.Bones are unremarkable.IMPRESSION1. Unchanged bronchopneumoniaElectronically signed by: Conner Ortiz (Feb 26, 2021 08:03:22)
[2021-02-26 08:11] LABS: BAND NEUTROPHILS % 4 % (0-10); MYELOCYTES % 1; PLATELET MORPHOLOGY COMMENT NORMAL (NORMAL)
[2021-02-26] MEDS: PULMICORT NEB TX 0.5 MG NEB SCH ×2 (09:30→20:40)
[2021-02-26] MEDS: BROVANA IN SCH ×2 (09:30→20:40)
[2021-02-26] MEDS: FLUVOXAMINE MALEATE PO SCH ×2 (10:26→21:20)
[2021-02-26] MEDS: ROBITUSSIN DM PO PRN (10:26)
[2021-02-26] MEDS: PEPCID TAB 40 MG PO SCH ×2 (10:27→21:20)
[2021-02-26] MEDS: PROTONIX TAB 40 MG PO SCH ×2 (10:27→21:21)
[2021-02-26] MEDS: ZINC SULFATE PO SCH (10:27)
[2021-02-26] MEDS: K-DUR TAB 20 MEQ PO PRN (10:27)
[2021-02-26] MEDS: MILK OF MAGNESIA PO SCH ×2 (10:28→21:19)
[2021-02-26] MEDS: ZyrTEC TAB 10 MG PO SCH (10:28)
[2021-02-26] MEDS: LOVENOX INJ 30 MG SYR SC SCH ×2 (10:29→21:20)
[2021-02-26] MEDS: THIAMINE HCL INJ IVP SCH ×2 (10:29→21:23)
[2021-02-26] MEDS: REMDESIVIR 100 MG in NS 250 ML IV 250 ML IV SCH (10:30)
[2021-02-26] MEDS: COLACE CAP 100 MG PO SCH ×2 (10:30→21:20)
[2021-02-26] MEDS: VITAMIN D3 125 mcg (5,000 UNITS) PO SCH (10:30)
[2021-02-26] MEDS: ZOSYN VIAL 4.5 GRAMS 4.5 G in NS 100 ML IV + SPIKE MINIBAG* 100 ML IV SCH (21:19)
[2021-02-26] MEDS: LIPITOR TAB 80 MG PO SCH (21:20)
[2021-02-26] MEDS: SINGULAIR TAB 10 MG PO SCH (21:21)
[2021-02-26] MEDS: IVERMECTIN PO SCH (21:21)
[2021-02-26] MEDS: NS 1000 ML 1,000 ML IV SCH (21:25)
[2021-02-27] MEDS: SNACK - Diabetic Appropriate PO SCH ×2 (00:02→21:31)
[2021-02-27] MEDS: ASCORBIC ACID INJ MULTI-DOSE VIAL 1,500 MG in NS 50 ML IV 50 ML IV SCH ×4 (02:37→21:24)
[2021-02-27 06:19] LABS: ABG HCO3 29.1 mmol/L (22-26)
[2021-02-27 06:20] LABS: ABG ALLEN TEST POS
[2021-02-27] MEDS: ZOSYN VIAL 4.5 GRAMS 4.5 G in NS 100 ML IV + SPIKE MINIBAG* 100 ML IV SCH ×3 (06:21→21:26)
[2021-02-27] MEDS: PERIACTIN TAB 4 MG PO SCH ×3 (06:21→21:27)
[2021-02-27] MEDS: TESSALON PERLES PO SCH ×3 (06:21→21:26)
[2021-02-27] MEDS: SOLU-Medrol 40 MG VIAL IVP SCH ×3 (06:21→21:29)
[2021-02-27 06:34] LABS: BASOPHILS # (AUTO) 0.1 X10^3/uL (0.0-0.1); BASOPHILS % (AUTO) 0.2 % (0.2-1.0); HEMATOCRIT 38.9 % (36.0-47.0); LYMPHOCYTES % (AUTO) 8.9 % (21.0-51.0); MEAN CORPUSCULAR HEMOGLOBIN 29.2 pg (27.0-34.0); MEAN CORPUSCULAR HGB CONC 33.4 g/dL (33.0-35.0); MEAN CORPUSCULAR VOLUME 87.6 fL (80.0-100.0); MEAN PLATELET VOLUME 8.8 fL (7.4-11.0); MONOCYTES # (AUTO) 1.6 x10^3/uL (0.3-0.8); MONOCYTES % (AUTO) 7.3 % (0.0-13.0); NEUTROPHILS # (AUTO) 18.8 x10^3/uL (2.2-4.8); NEUTROPHILS % (AUTO) 83.6 % (42.0-75.0); PLATELET COUNT 370 X10^3/uL (150.0-450.0); RED BLOOD COUNT 4.44 X10^6/uL (3.5-5.4); RED CELL DISTRIBUTION WIDTH 13.7 % (11.6-16.5); WHITE BLOOD COUNT 22.4 X10^3/uL (3.6-10.0)
[2021-02-27 06:59] LABS: ALANINE AMINOTRANSFERASE 52 Units/L (12-78); ALBUMIN 2.4 g/dL (3.4-5.0); ALKALINE PHOSPHATASE 52 Units/L (46-116); ASPARTATE AMINO TRANSFERASE 50 Units/L (15-37); BLOOD UREA NITROGEN 20 mg/dL (7-18); CALCIUM 7.6 mg/dL (8.5-10.1); CARBON DIOXIDE 29.9 mmol/L (21-32); CHLORIDE 113 mmol/L (98-107); COR CA(FOR HYPOALB) 8.9 mg/dL (8.5-10.1); COR NA(FOR HYPERGLY) 151 mmol/L (136-145); CREATININE 0.95 mg/dL (0.55-1.02); eGFR NON BLACK RACES > 60 (>60)
[2021-02-27] MEDS: MUCOMYST (RESPIRATORY USE ONLY) NEB SCH ×3 (06:59→22:23)
[2021-02-27] MEDS: ACCUNEB 1.25 MG NEBULE NEB SCH ×3 (06:59→22:23)
[2021-02-27 07:01] LABS: SODIUM 150 mmol/L (136-145)
--- NOTE | 2021-02-27 07:52 | RAD ---
HISTORYSOBSTUDYPortable AP chestCOMPARISONAugust 2020FINDINGSHeart size is stable. There is interval increase in bilateral confluent airspace disease without evidence for associated pneumothorax or significant pleural effusion.IMPRESSIONSlight interval progression of bilateral pneumonia.Electronically signed by: CUBA MCGARRY (Feb 27, 2021 07:50:00)
[2021-02-27 08:21] LABS: PLATELET MORPHOLOGY COMMENT NORMAL (NORMAL)
[2021-02-27] MEDS: BROVANA IN SCH (09:25)
[2021-02-27] MEDS: PULMICORT NEB TX 0.5 MG NEB SCH ×2 (09:25→22:23)
[2021-02-27] MEDS: COLACE CAP 100 MG PO SCH ×2 (10:09→21:28)
[2021-02-27] MEDS: FLUVOXAMINE MALEATE PO SCH ×2 (10:11→21:28)
[2021-02-27] MEDS: PEPCID TAB 40 MG PO SCH ×2 (10:16→21:29)
[2021-02-27] MEDS: ZyrTEC TAB 10 MG PO SCH (10:16)
[2021-02-27] MEDS: ZINC SULFATE PO SCH (10:16)
[2021-02-27] MEDS: MILK OF MAGNESIA PO SCH ×2 (10:16→22:15)
[2021-02-27] MEDS: PROTONIX TAB 40 MG PO SCH ×2 (10:16→21:28)
[2021-02-27] MEDS: REMDESIVIR 100 MG in NS 250 ML IV 250 ML IV SCH (10:17)
[2021-02-27] MEDS: VITAMIN D3 125 mcg (5,000 UNITS) PO SCH (10:17)
[2021-02-27] MEDS: THIAMINE HCL INJ IVP SCH ×2 (10:17→21:29)
[2021-02-27] MEDS: LOVENOX INJ 30 MG SYR SC SCH ×2 (10:31→22:14)
--- NOTE | 2021-02-27 19:12 | PCM.PROG ---
Progress Note - Progress Note for Day of Date of Exam: 02/26/21 - Subjective Subjective: MS. SANDERS WAS ADMITTED FOR TREATMENT OF COVID PNEUMONIA AND HYPOXIA. TODAY, SHE IS ALERT AND ORIENTED, LYING IN THE BED ON MORNING ROUNDS. SHE IS CURRENTLY UTILIZING HEATED HIGH FLOW OXYGEN AT 95%. SHE CONTINUES WITH COMPLAINTS OF SHORTNESS OF BREATH AND WEAKNESS TODAY. SHORTNESS OF BREATH AND COUGH SLIGHTLY INCREASED. HER SATURATIONS HAVE BEEN 88-95% THIS MORNING AND THROUGHOUT THE NIGHT. ON EXAMINATION, HEART IS REGULAR IN RATE AND RHYTHM. BILATERAL LUNGS ARE NOTED WITH WHEEZING THROUGHOUT. ABDOMEN IS ROUND, SOFT, AND NON-TENDER WITH NORMAL BOWEL SOUNDS NOTED IN ALL QUADRANTS. HIS VITALS THIS MORNING ARE: 98.4-62-21-88%-110/62. LABS WERE OBTAINED. ABNORMAL LAB VALUES INCLUDE THE FOLLOWING: WBC 15.2, SODIUM 149, CHLORIDE 111, BUN 22, GLUCOSE 150, CALCIUM 7.7, FERRITIN 607, AST 38, CRP 15.20, BNP 103, TOTAL PROTEIN 6.0, ALBUMIN 2.5. ABG REVEALED: PH 7.480, PC02 41, P02 43, HC03 30.5, 02 SAT 82, A-A GRADIENT 583, FI02 95. BLOOD CULTURES ARE PENDING. A CHEST XRAY WAS OBTAINED AND REVEALED: 1. Improved aeration 2. Unchanged bronchopneumonia. CHEST CTA WAS OBTAINED YESTERDAY AND REVEALED: 1. Unchanged bronchopneumonia. SHE IS CURRENTLY RECEIVING NS AT 80 ML/HR, ZOSYN 3.375G IV TID, REMDESIVIR 100MG IV DAILY, ASCORBIC ACID 1500MG IV Q6H, ALBUTEROL NEBS QID, PULMICORT NEBS BID, BROVANA INHALER BID, SOLU-MEDROL 80MG IV8H, FLUVOXAMINE 50MG PO BID, CYPROHEPTADINE 8MG PO TID, LOVENOX 30MG SC Q12H, LIPITOR 80MG PO HS, TESSALON PERLES 200MG PO TID, CETIRIZINE 10MG PO DAILY, IVERMECTIN, PEPCID 40MG PO BID, ROBITUSSIN DM 10ML PO QID PRN, HUMULIN R SLIDING SCALE, SINGULAIR 10MG PO HS, PROTONIX 40MG PO BID, MILK OF MAGNESIA 30ML PO BID, COLACE 100MG PO BID, THIAMINE 200MG IV BID, AND ZINC SULFATE 220MG PO BID. WE WILL CONTINUE WITH CURRENT PLAN OF CARE TODAY AND ATTEMPT TO WEAN DOWN OXYGEN SHE TOLERATES IT. OTHERWISE, WE WILL FOLLOW UP WITH AM LABS, CHEST XRAY, ABG, AND CONTINUE TO MONITOR. TIME SPENT ON CLINICAL ASSESSMENT, REVIEWING LABS AND IMAGING, DECISION MAKING, AND DOCUMENTATION GREATER THAN 45 MINUTES. - Past Medical Family Social History Past Med/Fam/Surg Hx: No changes since H&P Allergies: Allergies prednisone Adverse Reaction (Verified 02/23/21 13:08) anxiety, mouth ulcer high doses - Review of Systems ROS: No change since H&P - Vital Signs and I&O's Vital Signs: Temperature 98.6 F Pulse Rate [Left Brachial] 75 Pulse Rate 62 Respiratory Rate 42 Blood Pressure [Left Arm] 123/68 Blood Pressure 113/67 O2 Sat by Pulse Oximetry 97 Intake and Output: Intake & Output 02/25/21 02/26/21 02/27/21 02/28/21 11:59 11:59 11:59 11:59 Intake Total 2878 / 2878 2678 / 2678 1785 / 1785 920 / 920 Output Total 1950 / 1950 1380 / 1380 937 / 937 300 / 300 Balance 928 / 928 1298 / 1298 848 / 848 620 / 620 - Physical Exam Oriented: Normal Eyes: Normal Ear: Normal Nose: Normal Throat: Normal Respiratory: Generalized, Diminished, Wheezes Cardiovascular: Normal : Normal Auscultation: Bowel Sounds: Normal Tenderness: Normal Skin: Normal Musculoskeletal: Normal Psychiatric: Normal Mood Description: Calm Affect: Normal Speech Pattern: Clear, Appropriate - Laboratory and Diagnostics Result Diagrams: 02/27/21 06:06 02/27/21 06:06 Labs: 02/23/21 21:33 Blood Blood Culture - Preliminary 02/23/21 18:39 Blood Blood Culture - Preliminary Laboratory WBC 22.4 X10^3/uL (3.6-10.0) H 02/27/21 06:06 RBC 4.44 X10^6/uL (3.5-5.4) 02/27/21 06:06 Hgb 13.0 g/dL (12.0-16.0) 02/27/21 06:06 Hct 38.9 % (36.0-47.0) 02/27/21 06:06 MCV 87.6 fL (80.0-100.0) 02/27/21 06:06 MCH 29.2 pg (27.0-34.0) 02/27/21 06:06 MCHC 33.4 g/dL (33.0-35.0) 02/27/21 06:06 RDW 13.7 % (11.6-16.5) 02/27/21 06:06 Plt Count 370 X10^3/uL (150.0-450.0) 02/27/21 06:06 Plt Count Comment Adequate (ADEQUATE) 02/27/21 06:06 MPV 8.8 fL (7.4-11.0) 02/27/21 06:06 Neut % (Auto) 83.6 % (42.0-75.0) H 02/27/21 06:06 Lymph % (Auto) 8.9 % (21.0-51.0) L 02/27/21 06:06 [place] % (Auto) 7.3 % (0.0-13.0) 02/27/21 06:06 Eos % (Auto) 0.0 % (0.9-2.9) L 02/27/21 06:06 Baso % (Auto) 0.2 % (0.2-1.0) 02/27/21 06:06 Neut # (Auto) 18.8 x10^3/uL (2.2-4.8) H 02/27/21 06:06 Lymph # (Auto) 2.0 X10^3/uL (1.3-2.9) 02/27/21 06:06 [place] # (Auto) 1.6 x10^3/uL (0.3-0.8) H 02/27/21 06:06 Eos # (Auto) 0.0 x10^3/uL (0.0-0.2) 02/27/21 06:06 Baso # (Auto) 0.1 X10^3/uL (0.0-0.1) 02/27/21 06:06 Absolute Nucleated RBC 0.6 /100WBC 02/27/21 06:06 Total Counted 100 02/27/21 06:06 Neutrophils % (Manual) 81 % (39-76) H 02/27/21 06:06 Band Neutrophils % 4 % (0-10) 02/26/21 05:45 Lymphocytes % (Manual) 19 % (13-43) 02/27/21 06:06 Monocytes % (Manual) 4 % (4-9) 02/26/21 05:45 Myelocytes % 1 02/26/21 05:45 Plt Morphology Comment Normal (NORMAL) 02/27/21 06:06 RBC Morphology Normal (NORMAL) 02/27/21 06:06 D-Dimer 1.14 ug/ml (0.0-0.57) H* 02/27/21 06:06 Sample Site Lra 02/27/21 05:00 ABG pH 7.470 (7.35-7.45) H 02/27/21 05:00 ABG pCO2 40.0 mmHg (35.0-45.0) 02/27/21 05:00 ABG pO2 52.0 mmHg (80.0-100.0) L 02/27/21 05:00 ABG HCO3 29.1 mmol/L (22-26) H 02/27/21 05:00 ABG O2 Saturation 89.0 % (90-100) L 02/27/21 05:00 ABG Base Excess 5.0 mmol/L (-2.0-2.0) H 02/27/21 05:00 Yuval Test Pos 02/27/21 05:00 A-a Gradient 575.0 mmHg 02/27/21 05:00 FiO2 95.0 02/27/21 05:00 Blood Gas Comments Tols well. sk 02/27/21 05:00 Sodium 150 mmol/L (136-145) H* 02/27/21 06:06 Corrected Sodium 151 mmol/L (136-145) H 02/27/21 06:06 Potassium 4.0 mmol/L (3.5-5.1) 02/27/21 06:06 Chloride 113 mmol/L (98-107) H 02/27/21 06:06 Carbon Dioxide 29.9 mmol/L (21-32) 02/27/21 06:06 BUN 20 mg/dL (7-18) H 02/27/21 06:06 Creatinine 0.95 mg/dL (0.55-1.02) 02/27/21 06:06 Est GFR (MDRD) Af Amer > 60 (>60) 02/27/21 06:06 Est GFR (MDRD) Non-Af > 60 (>60) 02/27/21 06:06 Glucose 147 mg/dL (65-99) H 02/27/21 06:06 Lactic Acid 1.1 mmol/L (0.4-2.0) 02/23/21 18:39 Calcium 7.6 mg/dL (8.5-10.1) L 02/27/21 06:06 Corrected Calcium 8.9 mg/dL (8.5-10.1) 02/27/21 06:06 Magnesium 2.6 mg/dL (1.7-2.9) 02/26/21 05:45 Ferritin 447 ng/mL (8-252) H 02/27/21 06:06 Total Bilirubin 0.30 mg/dL (0.2-1.0) 02/27/21 06:06 AST 50 Units/L (15-37) H 02/27/21 06:06 ALT 52 Units/L (12-78) 02/27/21 06:06 Alkaline Phosphatase 52 Units/L (46-116) 02/27/21 06:06 Creatine Kinase 490 Units/L (26-192) H 02/23/21 21:33 CK-MB (CK-2) < 1.0 ng/mL (0-4.0) 02/23/21 21:33 CK/CKMB % Calc 0.2 % (<4) 02/23/21 21:33 Troponin I < 0.02 ng/mL (0-1.5) 02/23/21 21:33 C-Reactive Protein 13.00 mg/L (0-3.0) H 02/27/21 06:06 B-Natriuretic Peptide 161 pg/mL (0-79) H 02/27/21 06:06 Total Protein 6.0 g/dL (6.4-8.2) L 02/27/21 06:06 Albumin 2.4 g/dL (3.4-5.0) L 02/27/21 06:06 Globulin 3.6 g/dL (2.5-4.5) 02/27/21 06:06 Albumin/Globulin Ratio 0.7 Ratio (1.1-2.1) L 02/27/21 06:06 Specimen Type Catherized urine 02/24/21 09:08 Urine Color Yellow (YELLOW) 02/24/21 09:08 Urine Appearance Clear (CLEAR) 02/24/21 09:08 Urine pH 6.0 (5.0 - 8.0) 02/24/21 09:08 Ur Specific [place] 1.015 (1.000-1.030) 02/24/21 09:08 Urine Protein 2+ (NEGATIVE) 02/24/21 09:08 Urine Glucose (UA) Negative (NEGATIVE) 02/24/21 09:08 Urine Ketones 4+ (NEGATIVE) 02/24/21 09:08 Urine Occult Blood Negative (NEGATIVE) 02/24/21 09:08 Urine Nitrite Negative (NEGATIVE) 02/24/21 09:08 Urine Bilirubin Negative (NEGATIVE) 02/24/21 09:08 Urine Urobilinogen Normal (NORMAL) 02/24/21 09:08 Ur Leukocyte Esterase Negative (NEGATIVE) 02/24/21 09:08 Urine RBC 3-5 /HPF (0-3) A 02/24/21 09:08 Urine WBC 3-5 /HPF (0-5) 02/24/21 09:08 Ur Squamous Epith Cells Rare /HPF (NEGATIVE) 02/24/21 09:08 Urine Bacteria Negative /HPF (NEGATIVE) 02/24/21 09:08 Urine Mucus Few /HPF (NEGATIVE) 02/24/21 09:08 Ur Culture Indicated? No/not indicated 02/24/21 09:08 SARS CoV-2 RNA Rapid PHILLIP Positive (NEGATIVE) A 02/23/21 14:05 - Plan (1) Pneumonia due to COVID-19 virus Status: Acute Plan: SUPPLEMENTAL OXYGEN, NS AT 80 ML/HR, ZOSYN 3.375G IV TID, REMDESIVIR 100MG IV DAILY, ASCORBIC ACID 1500MG IV Q6H, ALBUTEROL NEBS QID, PULMICORT NEBS BID, BROVANA INHALER BID, MUCOMUST IN NEB TX, SOLU-MEDROL 80MG IV8H, FLUVOXAMINE 50MG PO BID, CYPROHEPTADINE 8MG PO TID, LOVENOX 30MG SC Q12H, LIPITOR 80MG PO HS, TESSALON PERLES 200MG PO TID, CETIRIZINE 10MG PO DAILY, IVERMECTIN, PEPCID 40MG PO BID, ROBITUSSIN DM 10ML PO QID PRN, HUMULIN R SLIDING SCALE, SINGULAIR 10MG PO HS, PROTONIX 40MG PO BID, MILK OF MAGNESIA 30ML PO BID, COLACE 100MG PO BID, THIAMINE 200MG IV BID, AND ZINC SULFATE 220MG PO BID. (2) Hypoxia Status: Acute
--- NOTE | 2021-02-27 21:00 | PCM.PROG ---
Progress Note - Progress Note for Day of Date of Exam: 02/27/21 - Subjective Subjective: MS. SANDERS WAS ADMITTED FOR TREATMENT OF COVID PNEUMONIA AND HYPOXIA. TODAY, SHE IS ALERT AND ORIENTED, LYING IN THE BED ON MORNING ROUNDS. SHE IS CURRENTLY UTILIZING THE BIPAP AT 100%. SHE CONTINUES WITH COMPLAINTS OF SHORTNESS OF BREATH AND WEAKNESS TODAY. SHORTNESS OF BREATH AND COUGH HAS S LIGHTLY IMPROVED TODAY. HER SATURATIONS HAVE BEEN 88-94% THIS MORNING AND THROUGHOUT THE NIGHT. ON EXAMINATION, HEART IS REGULAR IN RATE AND RHYTHM. BILATERAL LUNGS ARE NOTED WITH WHEEZING THROUGHOUT. ABDOMEN IS ROUND, SOFT, AND NON-TENDER WITH NORMAL BOWEL SOUNDS NOTED IN ALL QUADRANTS. HIS VITALS THIS MORNING ARE: 98.6-66-48-92%BIPAP-110/58. LABS WERE OBTAINED. ABNORMAL LAB VALUES INCLUDE THE FOLLOWING: WBC 22.4, D-DIMER 1.14, SODIUM 150, CHLORIDE 113, BUN 20, GLUCOSE 147, CALCIUM 7.6, FERRITIN 447, AST 50, CRP 13.0, BNP 161, TOTAL PROTEIN 6.0, ALBUMIN 2.4. ABG REVEALED: PH 7.470, PC02 40, P02 52, HC03 29.1, 02 SAT 89, BASE EXCESS 5.0, A-A GRADIENT 575, FI02 95. BLOOD CULTURES ARE PENDING. A CHEST XRAY WAS OBTAINED AND REVEALED: Slight interval progression of bilateral pneumonia. SHE IS CURRENTLY RECEIVING NS AT 80 ML/HR, ZOSYN 3.375G IV TID, REMDESIVIR 100MG IV DAILY, ASCORBIC ACID 1500MG IV Q6H, ALBUTEROL NEBS QID, PULMICORT NEBS BID, BROVANA INHALER BID, SOLU-MEDROL 80MG IV8H, FLUVOXAMINE 50MG PO BID, CYPROHEPTADINE 8MG PO TID, LOVENOX 30MG SC Q12H, LIPITOR 80MG PO HS, TESSALON PERLES 200MG PO TID, CETIRIZINE 10MG PO DAILY, IVERMECTIN, PEPCID 40MG PO BID, ROBITUSSIN DM 10ML PO QID PRN, HUMULIN R SLIDING SCALE, SINGULAIR 10MG PO HS, PROTONIX 40MG PO BID, MILK OF MAGNESIA 30ML PO BID, COLACE 100MG PO BID, THIAMINE 200MG IV BID, AND ZINC SULFATE 220MG PO BID. WE WILL CONTINUE WITH CURRENT PLAN OF CARE TODAY AND ATTEMPT TO WEAN DOWN OXYGEN SHE TOLERATES IT. OTHERWISE, WE WILL FOLLOW UP WITH AM LABS, CHEST XRAY, ABG, AND CONTINUE TO MONITOR. TIME SPENT ON CLINICAL ASSESSMENT, REVIEWING LABS AND IMAGING, DECISION MAKING, AND DOCUMENTATION GREATER THAN 45 MINUTES. - Past Medical Family Social History Past Med/Fam/Surg Hx: No changes since H&P Allergies: Allergies prednisone Adverse Reaction (Verified 02/23/21 13:08) anxiety, mouth ulcer high doses - Review of Systems ROS: No change since H&P - Vital Signs and I&O's Vital Signs: Temperature 98.6 F Pulse Rate [Left Brachial] 75 Pulse Rate 62 Respiratory Rate 42 Blood Pressure [Left Arm] 123/68 Blood Pressure 113/67 O2 Sat by Pulse Oximetry 97 Intake and Output: Intake & Output 02/25/21 02/26/21 02/27/21 02/28/21 11:59 11:59 11:59 11:59 Intake Total 2878 / 2878 2678 / 2678 1785 / 1785 920 / 920 Output Total 1950 / 1950 1380 / 1380 937 / 937 300 / 300 Balance 928 / 928 1298 / 1298 848 / 848 620 / 620 - Physical Exam Oriented: Normal Eyes: Normal Ear: Normal Nose: Normal Throat: Normal Respiratory: Generalized, Diminished, Wheezes Cardiovascular: Normal : Normal Auscultation: Bowel Sounds: Normal Tenderness: Normal Skin: Normal Musculoskeletal: Normal Psychiatric: Normal Mood Description: Calm Affect: Normal Speech Pattern: Clear, Appropriate - Laboratory and Diagnostics Result Diagrams: 02/27/21 06:06 02/27/21 06:06 Labs: 02/23/21 21:33 Blood Blood Culture - Preliminary 02/23/21 18:39 Blood Blood Culture - Preliminary Laboratory WBC 22.4 X10^3/uL (3.6-10.0) H 02/27/21 06:06 RBC 4.44 X10^6/uL (3.5-5.4) 02/27/21 06:06 Hgb 13.0 g/dL (12.0-16.0) 02/27/21 06:06 Hct 38.9 % (36.0-47.0) 02/27/21 06:06 MCV 87.6 fL (80.0-100.0) 02/27/21 06:06 MCH 29.2 pg (27.0-34.0) 02/27/21 06:06 MCHC 33.4 g/dL (33.0-35.0) 02/27/21 06:06 RDW 13.7 % (11.6-16.5) 02/27/21 06:06 Plt Count 370 X10^3/uL (150.0-450.0) 02/27/21 06:06 Plt Count Comment Adequate (ADEQUATE) 02/27/21 06:06 MPV 8.8 fL (7.4-11.0) 02/27/21 06:06 Neut % (Auto) 83.6 % (42.0-75.0) H 02/27/21 06:06 Lymph % (Auto) 8.9 % (21.0-51.0) L 02/27/21 06:06 [place] % (Auto) 7.3 % (0.0-13.0) 02/27/21 06:06 Eos % (Auto) 0.0 % (0.9-2.9) L 02/27/21 06:06 Baso % (Auto) 0.2 % (0.2-1.0) 02/27/21 06:06 Neut # (Auto) 18.8 x10^3/uL (2.2-4.8) H 02/27/21 06:06 Lymph # (Auto) 2.0 X10^3/uL (1.3-2.9) 02/27/21 06:06 [place] # (Auto) 1.6 x10^3/uL (0.3-0.8) H 02/27/21 06:06 Eos # (Auto) 0.0 x10^3/uL (0.0-0.2) 02/27/21 06:06 Baso # (Auto) 0.1 X10^3/uL (0.0-0.1) 02/27/21 06:06 Absolute Nucleated RBC 0.6 /100WBC 02/27/21 06:06 Total Counted 100 02/27/21 06:06 Neutrophils % (Manual) 81 % (39-76) H 02/27/21 06:06 Band Neutrophils % 4 % (0-10) 02/26/21 05:45 Lymphocytes % (Manual) 19 % (13-43) 02/27/21 06:06 Monocytes % (Manual) 4 % (4-9) 02/26/21 05:45 Myelocytes % 1 02/26/21 05:45 Plt Morphology Comment Normal (NORMAL) 02/27/21 06:06 RBC Morphology Normal (NORMAL) 02/27/21 06:06 D-Dimer 1.14 ug/ml (0.0-0.57) H* 02/27/21 06:06 Sample Site Lra 02/27/21 05:00 ABG pH 7.470 (7.35-7.45) H 02/27/21 05:00 ABG pCO2 40.0 mmHg (35.0-45.0) 02/27/21 05:00 ABG pO2 52.0 mmHg (80.0-100.0) L 02/27/21 05:00 ABG HCO3 29.1 mmol/L (22-26) H 02/27/21 05:00 ABG O2 Saturation 89.0 % (90-100) L 02/27/21 05:00 ABG Base Excess 5.0 mmol/L (-2.0-2.0) H 02/27/21 05:00 Yuval Test Pos 02/27/21 05:00 A-a Gradient 575.0 mmHg 02/27/21 05:00 FiO2 95.0 02/27/21 05:00 Blood Gas Comments Tols well. sk 02/27/21 05:00 Sodium 150 mmol/L (136-145) H* 02/27/21 06:06 Corrected Sodium 151 mmol/L (136-145) H 02/27/21 06:06 Potassium 4.0 mmol/L (3.5-5.1) 02/27/21 06:06 Chloride 113 mmol/L (98-107) H 02/27/21 06:06 Carbon Dioxide 29.9 mmol/L (21-32) 02/27/21 06:06 BUN 20 mg/dL (7-18) H 02/27/21 06:06 Creatinine 0.95 mg/dL (0.55-1.02) 02/27/21 06:06 Est GFR (MDRD) Af Amer > 60 (>60) 02/27/21 06:06 Est GFR (MDRD) Non-Af > 60 (>60) 02/27/21 06:06 Glucose 147 mg/dL (65-99) H 02/27/21 06:06 Lactic Acid 1.1 mmol/L (0.4-2.0) 02/23/21 18:39 Calcium 7.6 mg/dL (8.5-10.1) L 02/27/21 06:06 Corrected Calcium 8.9 mg/dL (8.5-10.1) 02/27/21 06:06 Magnesium 2.6 mg/dL (1.7-2.9) 02/26/21 05:45 Ferritin 447 ng/mL (8-252) H 02/27/21 06:06 Total Bilirubin 0.30 mg/dL (0.2-1.0) 02/27/21 06:06 AST 50 Units/L (15-37) H 02/27/21 06:06 ALT 52 Units/L (12-78) 02/27/21 06:06 Alkaline Phosphatase 52 Units/L (46-116) 02/27/21 06:06 Creatine Kinase 490 Units/L (26-192) H 02/23/21 21:33 CK-MB (CK-2) < 1.0 ng/mL (0-4.0) 02/23/21 21:33 CK/CKMB % Calc 0.2 % (<4) 02/23/21 21:33 Troponin I < 0.02 ng/mL (0-1.5) 02/23/21 21:33 C-Reactive Protein 13.00 mg/L (0-3.0) H 02/27/21 06:06 B-Natriuretic Peptide 161 pg/mL (0-79) H 02/27/21 06:06 Total Protein 6.0 g/dL (6.4-8.2) L 02/27/21 06:06 Albumin 2.4 g/dL (3.4-5.0) L 02/27/21 06:06 Globulin 3.6 g/dL (2.5-4.5) 02/27/21 06:06 Albumin/Globulin Ratio 0.7 Ratio (1.1-2.1) L 02/27/21 06:06 Specimen Type Catherized urine 02/24/21 09:08 Urine Color Yellow (YELLOW) 02/24/21 09:08 Urine Appearance Clear (CLEAR) 02/24/21 09:08 Urine pH 6.0 (5.0 - 8.0) 02/24/21 09:08 Ur Specific [place] 1.015 (1.000-1.030) 02/24/21 09:08 Urine Protein 2+ (NEGATIVE) 02/24/21 09:08 Urine Glucose (UA) Negative (NEGATIVE) 02/24/21 09:08 Urine Ketones 4+ (NEGATIVE) 02/24/21 09:08 Urine Occult Blood Negative (NEGATIVE) 02/24/21 09:08 Urine Nitrite Negative (NEGATIVE) 02/24/21 09:08 Urine Bilirubin Negative (NEGATIVE) 02/24/21 09:08 Urine Urobilinogen Normal (NORMAL) 02/24/21 09:08 Ur Leukocyte Esterase Negative (NEGATIVE) 02/24/21 09:08 Urine RBC 3-5 /HPF (0-3) A 02/24/21 09:08 Urine WBC 3-5 /HPF (0-5) 02/24/21 09:08 Ur Squamous Epith Cells Rare /HPF (NEGATIVE) 02/24/21 09:08 Urine Bacteria Negative /HPF (NEGATIVE) 02/24/21 09:08 Urine Mucus Few /HPF (NEGATIVE) 02/24/21 09:08 Ur Culture Indicated? No/not indicated 02/24/21 09:08 SARS CoV-2 RNA Rapid PHILLIP Positive (NEGATIVE) A 02/23/21 14:05 - Plan (1) Pneumonia due to COVID-19 virus Status: Acute Plan: SUPPLEMENTAL OXYGEN, NS AT 80 ML/HR, ZOSYN 3.375G IV TID, REMDESIVIR 100MG IV DAILY, ASCORBIC ACID 1500MG IV Q6H, ALBUTEROL NEBS QID, PULMICORT NEBS BID, BROVANA INHALER BID, MUCOMUST IN NEB [place], SOLU-MEDROL 80MG IV8H, FLUVOXAMINE 50MG PO BID, CYPROHEPTADINE 8MG PO TID, LOVENOX 30MG SC Q12H, LIPITOR 80MG PO HS, TESSALON PERLES 200MG PO TID, CETIRIZINE 10MG PO DAILY, IVERMECTIN, PEPCID 40MG PO BID, ROBITUSSIN DM 10ML PO QID PRN, HUMULIN R SLIDING SCALE, SINGULAIR 10MG PO HS, PROTONIX 40MG PO BID, MILK OF MAGNESIA 30ML PO BID, COLACE 100MG PO BID, THIAMINE 200MG IV BID, AND ZINC SULFATE 220MG PO BID. (2) Hypoxia Status: Acute
[2021-02-27] MEDS: LIPITOR TAB 80 MG PO SCH (21:27)
[2021-02-27] MEDS: SINGULAIR TAB 10 MG PO SCH (21:28)
[2021-02-27] MEDS: IVERMECTIN PO SCH (22:51)
[2021-02-27] MEDS: NS 1/2 1000 ML IV 1,000 ML IV SCH (22:51)
[2021-02-27] MEDS: ROBITUSSIN DM PO PRN (23:43)
[2021-02-28] MEDS ORDERED: NS 1/2 1000 ML IV 1,000 ML IV ONE (00:47)
[2021-02-28] MEDS: NS 1/2 1000 ML IV 1,000 ML IV SCH ×3 (01:04→19:38)
[2021-02-28] MEDS: ASCORBIC ACID INJ MULTI-DOSE VIAL 1,500 MG in NS 50 ML IV 50 ML IV SCH ×4 (02:55→21:34)
[2021-02-28] MEDS: VISTARIL PO PRN ×2 (04:15→08:30)
[2021-02-28 05:11] LABS: ABG BASE EXCESS 6.8 mmol/L (-2.0-2.0)
[2021-02-28 05:14] LABS: ABG ALLEN TEST POS; ABG HCO3 31.3 mmol/L (22-26)
[2021-02-28] MEDS: ACCUNEB 1.25 MG NEBULE NEB SCH ×3 (05:58→21:00)
[2021-02-28] MEDS: MUCOMYST (RESPIRATORY USE ONLY) NEB SCH ×3 (05:58→21:00)
[2021-02-28] MEDS: SOLU-Medrol 40 MG VIAL IVP SCH (06:20)
[2021-02-28] MEDS: PERIACTIN TAB 4 MG PO SCH (06:20)
[2021-02-28] MEDS: TESSALON PERLES PO SCH ×4 (06:21→21:36)
[2021-02-28] MEDS: ZOSYN VIAL 4.5 GRAMS 4.5 G in NS 100 ML IV + SPIKE MINIBAG* 100 ML IV SCH ×3 (06:21→21:36)
[2021-02-28 06:47] LABS: BASOPHILS % (AUTO) 0.1 % (0.2-1.0); HEMATOCRIT 33.4 % (36.0-47.0); HEMOGLOBIN 11.3 g/dL (12.0-16.0); LYMPHOCYTES # (AUTO) 1.1 X10^3/uL (1.3-2.9); LYMPHOCYTES % (AUTO) 5.9 % (21.0-51.0); MEAN CORPUSCULAR HGB CONC 33.8 g/dL (33.0-35.0); MEAN CORPUSCULAR VOLUME 88.8 fL (80.0-100.0); MEAN PLATELET VOLUME 8.9 fL (7.4-11.0); MONOCYTES % (AUTO) 5.2 % (0.0-13.0); NEUTROPHILS # (AUTO) 16.7 x10^3/uL (2.2-4.8); NEUTROPHILS % (AUTO) 88.8 % (42.0-75.0); PLATELET COUNT 318 X10^3/uL (150.0-450.0); RED BLOOD COUNT 3.77 X10^6/uL (3.5-5.4); RED CELL DISTRIBUTION WIDTH 13.8 % (11.6-16.5); WHITE BLOOD COUNT 18.8 X10^3/uL (3.6-10.0)
[2021-02-28 07:17] LABS: ALANINE AMINOTRANSFERASE 39 Units/L (12-78); ALBUMIN 2.1 g/dL (3.4-5.0); ALKALINE PHOSPHATASE 51 Units/L (46-116); ASPARTATE AMINO TRANSFERASE 41 Units/L (15-37); BLOOD UREA NITROGEN 18 mg/dL (7-18); CALCIUM 7.4 mg/dL (8.5-10.1); CARBON DIOXIDE 29.3 mmol/L (21-32); CHLORIDE 111 mmol/L (98-107); COR CA(FOR HYPOALB) 8.9 mg/dL (8.5-10.1); COR NA(FOR HYPERGLY) 149 mmol/L (136-145); CREATININE 0.73 mg/dL (0.55-1.02); SODIUM 148 mmol/L (136-145); TOTAL PROTEIN 5.5 g/dL (6.4-8.2); eGFR NON BLACK RACES > 60 (>60)
--- NOTE | 2021-02-28 08:09 | RAD ---
HISTORYSOBSTUDYCHEST, 1 [id number] opacity in the left and right lung representing bronchopneumonia is better appreciated on that chest CT 02/23/2021. Findings on the right side have progressed since yesterday. Findings on the left side may have improved slightly.No pleural effusion or pneumothorax.I cannot evaluate the heart size.Bones are unremarkable.IMPRESSION1. Bronchopneumonia, see noteElectronically signed by: Conner Ortiz (Feb 28, 2021 08:07:06)
[2021-02-28] MEDS: PULMICORT NEB TX 0.5 MG NEB SCH ×2 (09:25→21:00)
[2021-02-28] MEDS: THIAMINE HCL INJ IVP SCH ×2 (09:52→21:36)
[2021-02-28] MEDS: FLUVOXAMINE MALEATE PO SCH ×2 (09:52→21:34)
[2021-02-28] MEDS: REMDESIVIR 100 MG in NS 250 ML IV 250 ML IV SCH (09:52)
[2021-02-28] MEDS: PEPCID TAB 40 MG PO SCH ×2 (09:52→21:35)
[2021-02-28] MEDS: ZINC SULFATE PO SCH (09:52)
[2021-02-28] MEDS: VITAMIN D3 125 mcg (5,000 UNITS) PO SCH (09:52)
[2021-02-28] MEDS: PROTONIX TAB 40 MG PO SCH ×2 (09:52→21:35)
[2021-02-28] MEDS: COLACE CAP 100 MG PO SCH ×2 (09:52→21:34)
[2021-02-28] MEDS: MILK OF MAGNESIA PO SCH (09:52)
[2021-02-28] MEDS: LOVENOX INJ 100 MG SYR SC SCH ×2 (09:53→21:35)
[2021-02-28] MEDS: ZyrTEC TAB 10 MG PO SCH (09:53)
[2021-02-28] MEDS: SOLU-Medrol 125 MG VIAL IVP SCH ×2 (15:01→21:36)
--- NOTE | 2021-02-28 18:59 | PCM.PROG ---
Progress Note - Progress Note for Day of Date of Exam: 02/28/21 - Subjective Subjective: MS. SANDERS WAS ADMITTED FOR TREATMENT OF COVID PNEUMONIA AND HYPOXIA. TODAY, SHE IS ALERT AND ORIENTED, LYING IN THE BED ON MORNING ROUNDS. SHE IS CURRENTLY UTILIZING THE BIPAP AT 100%. SHE CONTINUES WITH COMPLAINTS OF SHORTNESS OF BREATH AND WEAKNESS TODAY. SHE DENIES SIGNIFICANT IMPROVEMENT IN SYMPTOMS. HER SATURATIONS HAVE BEEN 88-94% THIS MORNING AND THROUGHOUT THE NIGHT. ON EXAMINATION, HEART IS REGULAR IN RATE AND RHYTHM. BILATERAL LUNGS ARE NOTED WITH WHEEZING THROUGHOUT. ABDOMEN IS ROUND, SOFT, AND NON-TENDER WITH NORMAL BOWEL SOUNDS NOTED IN ALL QUADRANTS. HIS VITALS THIS MORNING ARE: 98.1-76-40-89%-131/70. LABS WERE OBTAINED. ABNORMAL LAB VALUES INCLUDE THE FOLLOWING: WBC 18.8, HGB 11.3, HCT 33.4, D-DIMER 2.66, SODIUM 148, CHLORIDE 111, GLUCOSE 155, FERRITIN 312, AST 41, CRP 59.70, BNP 124, TOTAL PROTEIN 5.5, ALBUMIN 2.1. ABG REVEALED: PH 7.470, PC02 43, P02 82, HC03 31.3, 02 SAT 97, BASE EXCESS 6.8, A-A GRADIENT 577, FI02 100. BLOOD CULTURES ARE PENDING. A CHEST XRAY WAS OBTAINED AND REVEALED: Abnormal opacity in the left and right lung representing bronchopneumonia is better appreciated on that chest CT 02/23/2021. Findings on the right side have progressed since yesterday. Findings on the left side may have improved slightly. No pleural effusion or pneumothorax. I cannot evaluate the heart size. Bones are unremarkable. SHE IS CURRENTLY RECEIVING NS AT 80 ML/HR, ZOSYN 3.375G IV TID, ASCORBIC ACID 1500MG IV Q6H, ALBUTEROL NEBS QID, PULMICORT NEBS BID, SOLU-MEDROL 80MG IV8H, FLUVOXAMINE 50MG PO BID, CYPROHEPTADINE 8MG PO TID, LOVENOX 30MG SC Q12H, LIPITOR 80MG PO HS, TESSALON PERLES 200MG PO TID, CETIRIZINE 10MG PO DAILY, IVERMECTIN, PEPCID 40MG PO BID, R OBITUSSIN DM 10ML PO QID PRN, HUMULIN R SLIDING SCALE, SINGULAIR 10MG PO HS, PROTONIX 40MG PO BID, MILK OF MAGNESIA 30ML PO BID, COLACE 100MG PO BID, THIAMINE 200MG IV BID, AND ZINC SULFATE 220MG PO BID. WE DISCUSSED WITH PATIENT THE IMPORTANCE OF GETTING OUT OF BED TO CHAIR AND MOVING AROUND. SHE VERBALIZED UNDERSTANDING. TODAY, WE WILL INCREASE SOLU-MEDROL TO 125MG IV Q6H, ADD XANAX 0.5MG PO BID PRN, AND INCREASE LOVENOX TO 100MG SC Q12H. OTHERWISE, WE WILL CONTINUE WITH CURRENT PLAN OF CARE TODAY AND ATTEMPT TO WEAN DOWN OXYGEN SHE TOLERATES IT. WE WILL FOLLOW UP WITH AM LABS, CHEST XRAY, ABG, AND CONTINUE TO MONITOR. TIME SPENT ON CLINICAL ASSESSMENT, REVIEWING LABS AND IMAGING, DECISION MAKING, AND DOCUMENTATION GREATER THAN 45 MINUTES. - Past Medical Family Social History Past Med/Fam/Surg Hx: No changes since H&P Allergies: Allergies prednisone Adverse Reaction (Verified 02/23/21 13:08) anxiety, mouth ulcer high doses - Review of Systems ROS: No change since H&P - Vital Signs and I&O's Vital Signs: Temperature 98.8 F Pulse Rate [Left Brachial] 75 Pulse Rate 58 Respiratory Rate 40 Blood Pressure [Left Arm] 123/68 Blood Pressure 134/75 O2 Sat by Pulse Oximetry 98 Intake and Output: Intake & Output 02/26/21 02/27/21 02/28/21 03/01/21 11:59 11:59 11:59 11:59 Intake Total 2678 / 2678 1785 / 1785 2828 / 2828 960 / 960 Output Total 1380 / 1380 937 / 937 910 / 910 250 / 250 Balance 1298 / 1298 848 / 848 1918 / 1918 710 / 710 - Physical Exam Oriented: Normal Eyes: Normal Ear: Normal Nose: Normal Throat: Normal Respiratory: Generalized, Diminished, Wheezes Cardiovascular: Normal : Normal Auscultation: Bowel Sounds: Normal Tenderness: Normal Skin: Normal Musculoskeletal: Normal Psychiatric: Normal Mood Description: Calm Affect: Normal Speech Pattern: Clear, Appropriate - Laboratory and Diagnostics Result Diagrams: 02/28/21 05:45 02/28/21 05:45 Labs: 02/23/21 21:33 Blood Blood Culture - Preliminary 02/23/21 18:39 Blood Blood Culture - Preliminary Laboratory WBC 18.8 X10^3/uL (3.6-10.0) H 02/28/21 05:45 RBC 3.77 X10^6/uL (3.5-5.4) 02/28/21 05:45 Hgb 11.3 g/dL (12.0-16.0) L 02/28/21 05:45 Hct 33.4 % (36.0-47.0) L 02/28/21 05:45 MCV 88.8 fL (80.0-100.0) 02/28/21 05:45 MCH 30.0 pg (27.0-34.0) 02/28/21 05:45 MCHC 33.8 g/dL (33.0-35.0) 02/28/21 05:45 RDW 13.8 % (11.6-16.5) 02/28/21 05:45 Plt Count 318 X10^3/uL (150.0-450.0) 02/28/21 05:45 Plt Count Comment Adequate (ADEQUATE) 02/27/21 06:06 MPV 8.9 fL (7.4-11.0) 02/28/21 05:45 Neut % (Auto) 88.8 % (42.0-75.0) H 02/28/21 05:45 Lymph % (Auto) 5.9 % (21.0-51.0) L 02/28/21 05:45 [place] % (Auto) 5.2 % (0.0-13.0) 02/28/21 05:45 Eos % (Auto) 0.0 % (0.9-2.9) L 02/28/21 05:45 Baso % (Auto) 0.1 % (0.2-1.0) L 02/28/21 05:45 Neut # (Auto) 16.7 x10^3/uL (2.2-4.8) H 02/28/21 05:45 Lymph # (Auto) 1.1 X10^3/uL (1.3-2.9) L 02/28/21 05:45 [place] # (Auto) 1.0 x10^3/uL (0.3-0.8) H 02/28/21 05:45 Eos # (Auto) 0.0 x10^3/uL (0.0-0.2) 02/28/21 05:45 Baso # (Auto) 0.0 X10^3/uL (0.0-0.1) 02/28/21 05:45 Absolute Nucleated RBC 0.0 /100WBC 02/28/21 05:45 Total Counted 100 02/27/21 06:06 Neutrophils % (Manual) 81 % (39-76) H 02/27/21 06:06 Band Neutrophils % 4 % (0-10) 02/26/21 05:45 Lymphocytes % (Manual) 19 % (13-43) 02/27/21 06:06 Monocytes % (Manual) 4 % (4-9) 02/26/21 05:45 Myelocytes % 1 02/26/21 05:45 Plt Morphology Comment Normal (NORMAL) 02/27/21 06:06 RBC Morphology Normal (NORMAL) 02/27/21 06:06 D-Dimer 2.66 ug/ml (0.0-0.57) H* 02/28/21 05:45 Sample Site Lrad 02/28/21 05:06 ABG pH 7.470 (7.35-7.45) H 02/28/21 05:06 ABG pCO2 43.0 mmHg (35.0-45.0) 02/28/21 05:06 ABG pO2 82.0 mmHg (80.0-100.0) 02/28/21 05:06 ABG HCO3 31.3 mmol/L (22-26) H* 02/28/21 05:06 ABG O2 Saturation 97.0 % (90-100) 02/28/21 05:06 ABG Base Excess 6.8 mmol/L (-2.0-2.0) H 02/28/21 05:06 Yuval Test Pos 02/28/21 05:06 A-a Gradient 577.0 mmHg 02/28/21 05:06 FiO2 100.0 02/28/21 05:06 Blood Gas Comments [facility] 02/28/21 05:06 Sodium 148 mmol/L (136-145) H 02/28/21 05:45 Corrected Sodium 149 mmol/L (136-145) H 02/28/21 05:45 Potassium 4.1 mmol/L (3.5-5.1) 02/28/21 05:45 Chloride 111 mmol/L (98-107) H 02/28/21 05:45 Carbon Dioxide 29.3 mmol/L (21-32) 02/28/21 05:45 BUN 18 mg/dL (7-18) 02/28/21 05:45 Creatinine 0.73 mg/dL (0.55-1.02) 02/28/21 05:45 Est GFR (MDRD) Af Amer > 60 (>60) 02/28/21 05:45 Est GFR (MDRD) Non-Af > 60 (>60) 02/28/21 05:45 Glucose 155 mg/dL (65-99) H 02/28/21 05:45 Lactic Acid 1.1 mmol/L (0.4-2.0) 02/23/21 18:39 Calcium 7.4 mg/dL (8.5-10.1) L 02/28/21 05:45 Corrected Calcium 8.9 mg/dL (8.5-10.1) 02/28/21 05:45 Magnesium 2.6 mg/dL (1.7-2.9) 02/26/21 05:45 Ferritin 312 ng/mL (8-252) H 02/28/21 05:45 Total Bilirubin 0.40 mg/dL (0.2-1.0) 02/28/21 05:45 AST 41 Units/L (15-37) H 02/28/21 05:45 ALT 39 Units/L (12-78) 02/28/21 05:45 Alkaline Phosphatase 51 Units/L (46-116) 02/28/21 05:45 Creatine Kinase 490 Units/L (26-192) H 02/23/21 21:33 CK-MB (CK-2) < 1.0 ng/mL (0-4.0) 02/23/21 21:33 CK/CKMB % Calc 0.2 % (<4) 02/23/21 21:33 Troponin I < 0.02 ng/mL (0-1.5) 02/23/21 21:33 C-Reactive Protein 59.70 mg/L (0-3.0) H 02/28/21 05:45 B-Natriuretic Peptide 124 pg/mL (0-79) H 02/28/21 05:45 Total Protein 5.5 g/dL (6.4-8.2) L 02/28/21 05:45 Albumin 2.1 g/dL (3.4-5.0) L 02/28/21 05:45 Globulin 3.4 g/dL (2.5-4.5) 02/28/21 05:45 Albumin/Globulin Ratio 0.6 Ratio (1.1-2.1) L 02/28/21 05:45 Specimen Type Catherized urine 02/24/21 09:08 Urine Color Yellow (YELLOW) 02/24/21 09:08 Urine Appearance Clear (CLEAR) 02/24/21 09:08 Urine pH 6.0 (5.0 - 8.0) 02/24/21 09:08 Ur Specific [place] 1.015 (1.000-1.030) 02/24/21 09:08 Urine Protein 2+ (NEGATIVE) 02/24/21 09:08 Urine Glucose (UA) Negative (NEGATIVE) 02/24/21 09:08 Urine Ketones 4+ (NEGATIVE) 02/24/21 09:08 Urine Occult Blood Negative (NEGATIVE) 02/24/21 09:08 Urine Nitrite Negative (NEGATIVE) 02/24/21 09:08 Urine Bilirubin Negative (NEGATIVE) 02/24/21 09:08 Urine Urobilinogen Normal (NORMAL) 02/24/21 09:08 Ur Leukocyte Esterase Negative (NEGATIVE) 02/24/21 09:08 Urine RBC 3-5 /HPF (0-3) A 02/24/21 09:08 Urine WBC 3-5 /HPF (0-5) 02/24/21 09:08 Ur Squamous Epith Cells Rare /HPF (NEGATIVE) 02/24/21 09:08 Urine Bacteria Negative /HPF (NEGATIVE) 02/24/21 09:08 Urine Mucus Few /HPF (NEGATIVE) 02/24/21 09:08 Ur Culture Indicated? No/not indicated 02/24/21 09:08 SARS CoV-2 RNA Rapid PHILLIP Positive (NEGATIVE) A 02/23/21 14:05 - Plan (1) Pneumonia due to COVID-19 virus Status: Acute Plan: SUPPLEMENTAL OXYGEN, NS AT 80 ML/HR, ZOSYN 3.375G IV TID, ASCORBIC ACID 1500MG IV Q6H, ALBUTEROL NEBS QID, PULMICORT NEBS BID, MUCOMUST IN NEB TX, SOLU- MEDROL 80MG IV8H, FLUVOXAMINE 50MG PO BID, CYPROHEPTADINE 8MG PO TID, LOVENOX 30MG SC Q12H, LIPITOR 80MG PO HS, TESSALON PERLES 200MG PO TID, CETIRIZINE 10MG PO DAILY, IVERMECTIN, PEPCID 40MG PO BID, ROBITUSSIN DM 10ML PO QID PRN, HUMULIN R SLIDING SCALE, SINGULAIR 10MG PO HS, PROTONIX 40MG PO BID, MILK OF MAGNESIA 30ML PO BID, COLACE 100MG PO BID, THIAMINE 200MG IV BID, AND ZINC SULFATE 220MG PO BID. (2) Hypoxia Status: Acute
[2021-02-28] MEDS: LIPITOR TAB 80 MG PO SCH (21:34)
[2021-02-28] MEDS: SNACK - Diabetic Appropriate PO SCH (21:34)
[2021-02-28] MEDS: SINGULAIR TAB 10 MG PO SCH (21:35)
[2021-02-28] MEDS: XANAX PO PRN (22:49)
[2021-03-01] MEDS: MILK OF MAGNESIA PO SCH ×3 (01:18→22:42)
[2021-03-01] MEDS: COLACE CAP 100 MG PO SCH ×4 (01:20→21:44)
[2021-03-01] MEDS: ASCORBIC ACID INJ MULTI-DOSE VIAL 1,500 MG in NS 50 ML IV 50 ML IV SCH ×4 (04:00→21:39)
[2021-03-01] MEDS: SOLU-Medrol 125 MG VIAL IVP SCH ×4 (04:01→21:38)
[2021-03-01 05:31] LABS: ABG ALLEN TEST POS; ABG BASE EXCESS 5.5 mmol/L (-2.0-2.0); ABG HCO3 29.9 mmol/L (22-26)
[2021-03-01] MEDS: ZOSYN VIAL 4.5 GRAMS 4.5 G in NS 100 ML IV + SPIKE MINIBAG* 100 ML IV SCH ×3 (05:58→21:39)
[2021-03-01] MEDS: TESSALON PERLES PO SCH ×3 (05:58→21:46)
[2021-03-01] MEDS ORDERED: NS 1/2 1000 ML IV 1,000 ML IV ONE ×2 (05:59→20:15)
[2021-03-01] MEDS: NS 1/2 1000 ML IV 1,000 ML IV SCH (06:01)
[2021-03-01 06:49] LABS: BASOPHILS # (AUTO) 0.1 X10^3/uL (0.0-0.1); BASOPHILS % (AUTO) 0.3 % (0.2-1.0); HEMATOCRIT 34.1 % (36.0-47.0); HEMOGLOBIN 11.6 g/dL (12.0-16.0); LYMPHOCYTES # (AUTO) 1.4 X10^3/uL (1.3-2.9); LYMPHOCYTES % (AUTO) 7.2 % (21.0-51.0); MEAN CORPUSCULAR HEMOGLOBIN 30.3 pg (27.0-34.0); MEAN CORPUSCULAR HGB CONC 34.2 g/dL (33.0-35.0); MEAN CORPUSCULAR VOLUME 88.7 fL (80.0-100.0); MEAN PLATELET VOLUME 9.4 fL (7.4-11.0); MONOCYTES # (AUTO) 0.6 x10^3/uL (0.3-0.8); MONOCYTES % (AUTO) 3.2 % (0.0-13.0); NEUTROPHILS # (AUTO) 17.7 x10^3/uL (2.2-4.8); NEUTROPHILS % (AUTO) 89.3 % (42.0-75.0); PLATELET COUNT 336 X10^3/uL (150.0-450.0); RED BLOOD COUNT 3.84 X10^6/uL (3.5-5.4); RED CELL DISTRIBUTION WIDTH 13.9 % (11.6-16.5); WHITE BLOOD COUNT 19.8 X10^3/uL (3.6-10.0)
[2021-03-01 07:52] LABS: ALANINE AMINOTRANSFERASE 33 Units/L (12-78); ALBUMIN 2.2 g/dL (3.4-5.0); ALKALINE PHOSPHATASE 69 Units/L (46-116); ASPARTATE AMINO TRANSFERASE 45 Units/L (15-37); BLOOD UREA NITROGEN 17 mg/dL (7-18); CALCIUM 7.7 mg/dL (8.5-10.1); CARBON DIOXIDE 28.4 mmol/L (21-32); CHLORIDE 111 mmol/L (98-107); COR CA(FOR HYPOALB) 9.1 mg/dL (8.5-10.1); COR NA(FOR HYPERGLY) 148 mmol/L (136-145); CREATININE 0.64 mg/dL (0.55-1.02); SODIUM 147 mmol/L (136-145); TOTAL PROTEIN 5.8 g/dL (6.4-8.2); eGFR NON BLACK RACES > 60 (>60)
--- NOTE | 2021-03-01 08:14 | RAD ---
HISTORYSOBSTUDYCHEST, 1 [id number] opacity in the right and left lung probably represents pneumonia. There may be a slight improvement.No significant effusion or pneumothorax.Cannot evaluate heart size.Bones are unremarkable.IMPRESSION1. Bilateral pneumonia, slightly improvedElectronically signed by: Conner Ortiz (Mar 01, 2021 08:13:20)
[2021-03-01] MEDS: LOVENOX INJ 100 MG SYR SC SCH ×2 (08:23→21:40)
[2021-03-01] MEDS: FLUVOXAMINE MALEATE PO SCH ×2 (08:23→21:44)
[2021-03-01] MEDS: PROTONIX TAB 40 MG PO SCH ×2 (08:24→21:44)
[2021-03-01] MEDS: ZyrTEC TAB 10 MG PO SCH (08:24)
[2021-03-01] MEDS: PEPCID TAB 40 MG PO SCH ×2 (08:24→21:44)
[2021-03-01] MEDS: VITAMIN D3 125 mcg (5,000 UNITS) PO SCH (08:24)
[2021-03-01] MEDS: ZINC SULFATE PO SCH (08:24)
[2021-03-01] MEDS: MUCOMYST (RESPIRATORY USE ONLY) NEB SCH ×4 (09:13→21:41)
[2021-03-01] MEDS: ACCUNEB 1.25 MG NEBULE NEB SCH ×4 (09:13→21:41)
[2021-03-01] MEDS: PULMICORT NEB TX 0.5 MG NEB SCH ×2 (09:14→21:41)
[2021-03-01] MEDS: THIAMINE HCL INJ IVP SCH ×2 (10:18→21:37)
[2021-03-01] MEDS: VISTARIL PO PRN (18:08)
[2021-03-01] MEDS: LOVENOX INJ 30 MG SYR SC SCH (19:07)
[2021-03-01] MEDS: NS 1000 ML 1,000 ML IV SCH (19:08)
[2021-03-01] MEDS: XANAX PO PRN (21:42)
[2021-03-01] MEDS: LIPITOR TAB 80 MG PO SCH (21:42)
[2021-03-01] MEDS: SINGULAIR TAB 10 MG PO SCH (21:46)
--- NOTE | 2021-03-01 21:51 | PCM.PROG ---
Progress Note Progress Note for Day of Date of Exam: 03/01/21 Subjective Subjective: PT IS A 35 YEAR OLD FEMALE ADMITTED FOR COVID PNEUMONIA AND HYPOXIA. THIS MORNING SHE IS ALERT AND SITTING UP IN BED. SHE IS CURRENTLY UTILIZING BIPAP WITH FIO2 90%. SHE CONTINUES WITH COMPLAINTS OF SHORTNESS OF BREATH AND WEAKNESS. ON EXAMINATION, HEART IS REGULAR IN RATE AND RHYTHM. BILATERAL LUNGS ARE NOTED WITH WHEEZING THROUGHOUT. ABDOMEN IS ROUND, SOFT, AND NON-TENDER WITH NORMAL BOWEL SOUNDS NOTED IN ALL QUADRANTS. LABS/IMAGING: WBC 19.8, HGB 11.6, PLT 336, NA 147, K 3.7, CREATININE 0.64, GLUCOSE 138, CRP 69, ABG REVEALED: PH 7.46, PC02 42, P02 64, HC03 29, 02 SAT 93 ON FIO2 100% BIPAP. BLOOD CULTURE NGTD. A CHEST XRAY WAS OBTAINED AND REVEALED: 1. Bilateral pneumonia, slightly improved. SHE IS CURRENTLY RECEIVING NS AT 80 ML/HR, ZOSYN 3.375G IV TID, ASCORBIC ACID 1500MG IV Q6H, ALBUTEROL NEBS QID, PULMICORT NEBS BID, IV SOLU- MEDROL 125MG Q6H, FLUVOXAMINE 50MG PO BID, CYPROHEPTADINE 8MG PO TID, LOVENOX 100MG SC Q12H, LIPITOR 80MG PO HS, TESSALON PERLES 200MG PO TID, CETIRIZINE 10MG PO DAILY, IVERMECTIN, PEPCID 40MG PO BID, ROBITUSSIN DM 10ML PO QID PRN, HUMULIN R SLIDING SCALE, SINGULAIR 10MG PO HS, PROTONIX 40MG PO BID, MILK OF MAGNESIA 30ML PO BID, COLACE 100MG PO BID, THIAMINE 200MG IV BID, XANAX 0.5MG BID PRN, AND ZINC SULFATE 220MG PO BID. PATIENT WAS INSTRUCTED TO GET OUT OF BED TO CHAIR. SHE VERBALIZED UNDERSTANDING. OTHERWISE, WE WILL CONTINUE WITH CURRENT PLAN OF CARE TODAY AND ATTEMPT TO WEAN DOWN OXYGEN SHE TOLERATES IT. WE WILL FOLLOW UP WITH AM LABS, CHEST XRAY, ABG, AND CONTINUE TO MONITOR. CRITICAL CARE TIME SPENT ON CLINICAL ASSESSMENT, REVIEWING LABS AND IMAGING, DECISION MAKING, AND DOCUMENTATION GREATER THAN 75 MINUTES. Past Medical Family Social History Past Med/Fam/Surg Hx: No changes since H&P Allergies: Allergies prednisone Adverse Reaction (Verified 02/23/21 13:08) anxiety, mouth ulcer high doses Review of Systems ROS: No change since H&P Vital Signs and I&O's Vital Signs: Temperature 99.0 F Pulse Rate [Left Brachial] 75 Pulse Rate 57 Respiratory Rate 48 Blood Pressure [Left Arm] 123/68 Blood Pressure 138/78 O2 Sat by Pulse Oximetry 98 Intake and Output: Intake & Output 02/26/21 02/27/21 02/28/21 03/01/21 23:59 23:59 23:59 23:59 Intake Total 3074 / 3074 3271 / 3271 1936 / 1936 1032 / 1032 Output Total 760 / 760 937 / 937 860 / 860 Balance 2314 / 2314 2334 / 2334 1076 / 1076 1032 / 1032 Physical Exam Oriented: Normal Eyes: Normal Ear: Normal Nose: Normal Throat: Normal Respiratory: Generalized, Diminished and Wheezes Cardiovascular: Normal : Normal Auscultation: Bowel Sounds: Normal Tenderness: Normal Skin: Normal Musculoskeletal: Normal Psychiatric: Normal Mood Description: Calm Affect: Normal Speech Pattern: Clear and Appropriate Laboratory and Diagnostics Result Diagrams: 03/01/21 05:50 03/01/21 05:50 Labs: 02/23/21 21:33 Blood Blood Culture - Final 02/23/21 18:39 Blood Blood Culture - Final Laboratory WBC 19.8 X10^3/uL (3.6-10.0) H 03/01/21 05:50 RBC 3.84 X10^6/uL (3.5-5.4) 03/01/21 05:50 Hgb 11.6 g/dL (12.0-16.0) L 03/01/21 05:50 Hct 34.1 % (36.0-47.0) L 03/01/21 05:50 MCV 88.7 fL (80.0-100.0) 03/01/21 05:50 MCH 30.3 pg (27.0-34.0) 03/01/21 05:50 MCHC 34.2 g/dL (33.0-35.0) 03/01/21 05:50 RDW 13.9 % (11.6-16.5) 03/01/21 05:50 Plt Count 336 X10^3/uL (150.0-450.0) 03/01/21 05:50 Plt Count Comment Adequate (ADEQUATE) 02/27/21 06:06 MPV 9.4 fL (7.4-11.0) 03/01/21 05:50 Neut % (Auto) 89.3 % (42.0-75.0) H 03/01/21 05:50 Lymph % (Auto) 7.2 % (21.0-51.0) L 03/01/21 05:50 [place] % (Auto) 3.2 % (0.0-13.0) 03/01/21 05:50 Eos % (Auto) 0.0 % (0.9-2.9) L 03/01/21 05:50 Baso % (Auto) 0.3 % (0.2-1.0) 03/01/21 05:50 Neut # (Auto) 17.7 x10^3/uL (2.2-4.8) H 03/01/21 05:50 Lymph # (Auto) 1.4 X10^3/uL (1.3-2.9) 03/01/21 05:50 [place] # (Auto) 0.6 x10^3/uL (0.3-0.8) 03/01/21 05:50 Eos # (Auto) 0.0 x10^3/uL (0.0-0.2) 03/01/21 05:50 Baso # (Auto) 0.1 X10^3/uL (0.0-0.1) 03/01/21 05:50 Absolute Nucleated RBC 0.0 /100WBC 03/01/21 05:50 Total Counted 100 02/27/21 06:06 Neutrophils % (Manual) 81 % (39-76) H 02/27/21 06:06 Band Neutrophils % 4 % (0-10) 02/26/21 05:45 Lymphocytes % (Manual) 19 % (13-43) 02/27/21 06:06 Monocytes % (Manual) 4 % (4-9) 02/26/21 05:45 Myelocytes % 1 02/26/21 05:45 Plt Morphology Comment Normal (NORMAL) 02/27/21 06:06 RBC Morphology Normal (NORMAL) 02/27/21 06:06 D-Dimer 3.09 ug/ml (0.0-0.57) H* 03/01/21 05:50 Sample Site Lr 03/01/21 05:00 ABG pH 7.460 (7.35-7.45) H 03/01/21 05:00 ABG pCO2 42.0 mmHg (35.0-45.0) 03/01/21 05:00 ABG pO2 64.0 mmHg (80.0-100.0) L 03/01/21 05:00 ABG HCO3 29.9 mmol/L (22-26) H 03/01/21 05:00 ABG O2 Saturation 93.0 % (90-100) 03/01/21 05:00 ABG Base Excess 5.5 mmol/L (-2.0-2.0) H 03/01/21 05:00 Yuval Test Pos 03/01/21 05:00 A-a Gradient 597.0 mmHg 03/01/21 05:00 FiO2 100.0 03/01/21 05:00 Blood Gas Comments [facility] well sw 03/01/21 05:00 Sodium 147 mmol/L (136-145) H 03/01/21 05:50 Corrected Sodium 148 mmol/L (136-145) H 03/01/21 05:50 Potassium 3.7 mmol/L (3.5-5.1) 03/01/21 05:50 Chloride 111 mmol/L (98-107) H 03/01/21 05:50 Carbon Dioxide 28.4 mmol/L (21-32) 03/01/21 05:50 BUN 17 mg/dL (7-18) 03/01/21 05:50 Creatinine 0.64 mg/dL (0.55-1.02) 03/01/21 05:50 Est GFR (MDRD) Af Amer > 60 (>60) 03/01/21 05:50 Est GFR (MDRD) Non-Af > 60 (>60) 03/01/21 05:50 Glucose 138 mg/dL (65-99) H 03/01/21 05:50 Lactic Acid 1.1 mmol/L (0.4-2.0) 02/23/21 18:39 Calcium 7.7 mg/dL (8.5-10.1) L 03/01/21 05:50 Corrected Calcium 9.1 mg/dL (8.5-10.1) 03/01/21 05:50 Magnesium 2.6 mg/dL (1.7-2.9) 02/26/21 05:45 Ferritin 334 ng/mL (8-252) H 03/01/21 05:50 Total Bilirubin 0.40 mg/dL (0.2-1.0) 03/01/21 05:50 AST 45 Units/L (15-37) H 03/01/21 05:50 ALT 33 Units/L (12-78) 03/01/21 05:50 Alkaline Phosphatase 69 Units/L (46-116) 03/01/21 05:50 Creatine Kinase 490 Units/L (26-192) H 02/23/21 21:33 CK-MB (CK-2) < 1.0 ng/mL (0-4.0) 02/23/21 21:33 CK/CKMB % Calc 0.2 % (<4) 02/23/21 21:33 Troponin I < 0.02 ng/mL (0-1.5) 02/23/21 21:33 C-Reactive Protein 69.80 mg/L (0-3.0) H 03/01/21 05:50 B-Natriuretic Peptide 135 pg/mL (0-79) H 03/01/21 05:50 Total Protein 5.8 g/dL (6.4-8.2) L 03/01/21 05:50 Albumin 2.2 g/dL (3.4-5.0) L 03/01/21 05:50 Globulin 3.6 g/dL (2.5-4.5) 03/01/21 05:50 Albumin/Globulin Ratio 0.6 Ratio (1.1-2.1) L 03/01/21 05:50 Specimen Type Catherized urine 02/24/21 09:08 Urine Color Yellow (YELLOW) 02/24/21 09:08 Urine Appearance Clear (CLEAR) 02/24/21 09:08 Urine pH 6.0 (5.0 - 8.0) 02/24/21 09:08 Ur Specific [place] 1.015 (1.000-1.030) 02/24/21 09:08 Urine Protein 2+ (NEGATIVE) 02/24/21 09:08 Urine Glucose (UA) Negative (NEGATIVE) 02/24/21 09:08 Urine Ketones 4+ (NEGATIVE) 02/24/21 09:08 Urine Occult Blood Negative (NEGATIVE) 02/24/21 09:08 Urine Nitrite Negative (NEGATIVE) 02/24/21 09:08 Urine Bilirubin Negative (NEGATIVE) 02/24/21 09:08 Urine Urobilinogen Normal (NORMAL) 02/24/21 09:08 Ur Leukocyte Esterase Negative (NEGATIVE) 02/24/21 09:08 Urine RBC 3-5 /HPF (0-3) A 02/24/21 09:08 Urine WBC 3-5 /HPF (0-5) 02/24/21 09:08 Ur Squamous Epith Cells Rare /HPF (NEGATIVE) 02/24/21 09:08 Urine Bacteria Negative /HPF (NEGATIVE) 02/24/21 09:08 Urine Mucus Few /HPF (NEGATIVE) 02/24/21 09:08 Ur Culture Indicated? No/not indicated 02/24/21 09:08 SARS CoV-2 RNA Rapid PHILLIP Positive (NEGATIVE) A 02/23/21 14:05 Plan (1) Pneumonia due to COVID-19 virus: Status: Acute Plan: SUPPLEMENTAL OXYGEN, NS AT 80 ML/HR, ZOSYN 3.375G IV TID, ASCORBIC ACID 1500MG IV Q6H, ALBUTEROL NEBS QID, PULMICORT NEBS BID, MUCOMUST IN NEB [place], SOLU-MEDROL 80MG IV8H, FLUVOXAMINE 50MG PO BID, CYPROHEPTADINE 8MG PO TID, LOVENOX 30MG SC Q12H, LIPITOR 80MG PO HS, TESSALON PERLES 200MG PO TID, CETIRIZINE 10MG PO DAILY, IVERMECTIN, PEPCID 40MG PO BID, ROBITUSSIN DM 10ML PO QID PRN, HUMULIN R SLIDING SCALE, SINGULAIR 10MG PO HS, PROTONIX 40MG PO BID, MILK OF MAGNESIA 30ML PO BID, COLACE 100MG PO BID, THIAMINE 200MG IV BID, AND ZINC SULFATE 220MG PO BID. (2) Hypoxia: Status: Acute
[2021-03-01] MEDS: SNACK - Diabetic Appropriate PO SCH (22:38)
[2021-03-02] MEDS: NS 1/2 1000 ML IV 1,000 ML IV SCH ×5 (02:09→22:54)
[2021-03-02] MEDS: SOLU-Medrol 125 MG VIAL IVP SCH ×4 (02:10→21:30)
[2021-03-02] MEDS: ASCORBIC ACID INJ MULTI-DOSE VIAL 1,500 MG in NS 50 ML IV 50 ML IV SCH ×4 (02:10→21:30)
[2021-03-02] MEDS: TESSALON PERLES PO SCH ×3 (05:05→21:30)
[2021-03-02] MEDS: ZOSYN VIAL 4.5 GRAMS 4.5 G in NS 100 ML IV + SPIKE MINIBAG* 100 ML IV SCH ×3 (05:05→22:00)
[2021-03-02 05:24] LABS: ABG ALLEN TEST POS; ABG BASE EXCESS 5.5 mmol/L (-2.0-2.0); ABG HCO3 29.9 mmol/L (22-26)
[2021-03-02 06:39] LABS: BASOPHILS % (AUTO) 0.1 % (0.2-1.0); HEMATOCRIT 33.1 % (36.0-47.0); HEMOGLOBIN 11.1 g/dL (12.0-16.0); LYMPHOCYTES % (AUTO) 6.3 % (21.0-51.0); MEAN CORPUSCULAR HGB CONC 33.5 g/dL (33.0-35.0); MEAN CORPUSCULAR VOLUME 89.5 fL (80.0-100.0); MEAN PLATELET VOLUME 9.7 fL (7.4-11.0); MONOCYTES # (AUTO) 0.5 x10^3/uL (0.3-0.8); NEUTROPHILS # (AUTO) 14.4 x10^3/uL (2.2-4.8); NEUTROPHILS % (AUTO) 90.6 % (42.0-75.0); PLATELET COUNT 309 X10^3/uL (150.0-450.0); RED CELL DISTRIBUTION WIDTH 14.1 % (11.6-16.5); WHITE BLOOD COUNT 15.9 X10^3/uL (3.6-10.0)
--- NOTE | 2021-03-02 06:51 | RAD ---
HISTORYCOVID-19STUDYPortable AP [id number] stable cardiomegaly. Similar degree and extent of bilateral airspace disease involving the right lung to a greater degree. There is no evidence for additional consolidation, complicating pneumothorax or large pleural effusion.IMPRESSIONNo significant change in appearance of bilateral pneumonia.Electronically signed by: CUBA MCGARRY (Mar 02, 2021 06:50:03)
[2021-03-02 06:52] LABS: ALANINE AMINOTRANSFERASE 30 Units/L (12-78); ALBUMIN 2.1 g/dL (3.4-5.0); ALKALINE PHOSPHATASE 68 Units/L (46-116); ASPARTATE AMINO TRANSFERASE 26 Units/L (15-37); BLOOD UREA NITROGEN 23 mg/dL (7-18); CALCIUM 7.7 mg/dL (8.5-10.1); CARBON DIOXIDE 28.9 mmol/L (21-32); CHLORIDE 111 mmol/L (98-107); COR CA(FOR HYPOALB) 9.2 mg/dL (8.5-10.1); COR NA(FOR HYPERGLY) 149 mmol/L (136-145); CREATININE 0.73 mg/dL (0.55-1.02); SODIUM 148 mmol/L (136-145); TOTAL PROTEIN 5.6 g/dL (6.4-8.2); eGFR NON BLACK RACES > 60 (>60)
[2021-03-02 08:29] LABS: BAND NEUTROPHILS % 2 % (0-10); PLATELET MORPHOLOGY COMMENT NORMAL (NORMAL)
[2021-03-02] MEDS: PULMICORT NEB TX 0.5 MG NEB SCH ×2 (09:52→21:15)
[2021-03-02] MEDS ORDERED: NS 1/2 1000 ML IV 1,000 ML IV ONE (13:54)
[2021-03-02] MEDS: MUCOMYST (RESPIRATORY USE ONLY) NEB SCH ×2 (14:22→21:15)
[2021-03-02] MEDS: ACCUNEB 1.25 MG NEBULE NEB SCH ×2 (14:22→21:15)
[2021-03-02] MEDS: LOVENOX INJ 100 MG SYR SC SCH ×2 (14:32→21:30)
[2021-03-02] MEDS: PROTONIX TAB 40 MG PO SCH ×2 (14:34→21:30)
[2021-03-02] MEDS: VITAMIN D3 125 mcg (5,000 UNITS) PO SCH (14:34)
[2021-03-02] MEDS: PEPCID TAB 40 MG PO SCH ×2 (14:34→21:30)
[2021-03-02] MEDS: MILK OF MAGNESIA PO SCH ×2 (14:36→22:57)
[2021-03-02] MEDS: ZyrTEC TAB 10 MG PO SCH (14:36)
[2021-03-02] MEDS: COLACE CAP 100 MG PO SCH ×2 (14:36→21:30)
[2021-03-02] MEDS: ZINC SULFATE PO SCH (14:36)
[2021-03-02] MEDS: THIAMINE HCL INJ IVP SCH ×2 (14:37→21:30)
[2021-03-02] MEDS: FLUVOXAMINE MALEATE PO SCH ×2 (14:38→21:30)
[2021-03-02] MEDS: XANAX PO PRN (14:39)
[2021-03-02] MEDS: VISTARIL PO PRN ×3 (14:39→22:29)
[2021-03-02] MEDS: K-DUR TAB 20 MEQ PO PRN (14:40)
[2021-03-02] MEDS ORDERED: MORPHINE SULFATE INJ 2 MG INJ IVP PRN (16:20)
--- NOTE | 2021-03-02 17:46 | PCM.PROG ---
Progress Note Progress Note for Day of Date of Exam: 03/02/21 Subjective Subjective: PT IS A 35 YEAR OLD FEMALE ADMITTED FOR COVID PNEUMONIA AND HYPOXIA. PATIENT IS IN BED AND IS CURRENTLY UTILIZING BIPAP WITH FIO2 90%. DISCUSSED WITH RESPIRATORY THERAPY, PLAN TO ATTEMPT SWITCH FROM BIPAP TO HEATED HIGH FLOW TODAY. 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 ON EXAMINATION, HEART IS REGULAR IN RATE AND RHYTHM. BILATERAL LUNGS ARE NOTED WITH WHEEZING THROUGHOUT. ABDOMEN IS ROUND, SOFT, AND NON-TENDER WITH NORMAL BOWEL SOUNDS NOTED IN ALL QUADRANTS. LABS/IMAGING: WBC 15.9, HGB 11.1, PLT 309, NA 148, K 3.4, CREATININE 0.73, GLUCOSE 154, CRP 69>34, ABG REVEALED: PH 7.46, PC02 42, P02 73, HC03 29, 02 SAT 95 ON FIO2 90% BIPAP. BLOOD CULTURE NGTD. A CHEST XRAY WAS OBTAINED AND REVEALED: 1. Bilateral pneumonia, NO CHANGE. SHE IS CURRENTLY RECEIVING NS AT 80 ML/HR, ZOSYN 3.375G IV TID, ASCORBIC ACID 1500MG IV Q6H, ALBUTEROL NEBS QID, PULMICORT NEBS BID, IV SOLU-MEDROL 125MG Q6H, FLUVOXAMINE 50MG PO BID, CYPROHEPTADINE 8MG PO TID, LOVENOX 100MG SC Q12H, LIPITOR 80MG PO HS, TESSALON PERLES 200MG PO TID, CETIRIZINE 10MG PO DAILY, IVERMECTIN, PEPCID 40MG PO BID, ROBITUSSIN DM 10ML PO QID PRN, HUMULIN R SLIDING SCALE, SINGULAIR 10MG PO HS, PROTONIX 40MG PO BID, MILK OF MAGNESIA 30ML PO BID, COLACE 100MG PO BID, THIAMINE 200MG IV BID, XANAX 0.5MG BID PRN, AND ZINC SULFATE 220MG PO BID. CONTINUE TO WEAN/TITRATE OXYGEN TOLERATED. WE WILL FOLLOW UP WITH AM LABS, CHEST XRAY, ABG, AND CONTINUE TO MONITOR. CRITICAL CARE TIME SPENT ON CLINICAL ASSESSMENT, REVIEWING LABS AND IMAGING, DECISION MAKING, AND DOCUMENTATION GREATER THAN 75 MINUTES. Past Medical Family Social History Past Med/Fam/Surg Hx: No changes since H&P Allergies: Allergies prednisone Adverse Reaction (Verified 02/23/21 13:08) anxiety, mouth ulcer high doses Review of Systems ROS: No change since H&P Vital Signs and I&O's Vital Signs: Temperature 97.2 F Pulse Rate [Left Brachial] 75 Pulse Rate 63 Respiratory Rate 22 Blood Pressure [Left Arm] 123/68 Blood Pressure 141/59 O2 Sat by Pulse Oximetry 89 Intake and Output: Intake & Output 02/27/21 02/28/21 03/01/21 03/02/21 23:59 23:59 23:59 23:59 Intake Total 3271 / 3271 1935 / 1935 660 / 660 Output Total 937 / 937 860 / 860 Balance 2334 / 2334 1076 / 1076 1954 660 / 660 Physical Exam Oriented: Normal Eyes: Normal Ear: Normal Nose: Normal Throat: Normal Respiratory: Generalized, Diminished and Rales Cardiovascular: Normal : Normal Auscultation: Bowel Sounds: Normal Tenderness: Normal Skin: Normal Musculoskeletal: Normal Psychiatric: Normal Mood Description: Calm Affect: Normal Speech Pattern: Clear and Appropriate Laboratory and Diagnostics Result Diagrams: 03/02/21 05:09 03/02/21 05:09 Labs: 02/23/21 21:33 Blood Blood Culture - Final 02/23/21 18:39 Blood Blood Culture - Final Laboratory WBC 15.9 X10^3/uL (3.6-10.0) H 03/02/21 05:09 RBC 3.70 X10^6/uL (3.5-5.4) 03/02/21 05:09 Hgb 11.1 g/dL (12.0-16.0) L 03/02/21 05:09 Hct 33.1 % (36.0-47.0) L 03/02/21 05:09 MCV 89.5 fL (80.0-100.0) 03/02/21 05:09 MCH 30.0 pg (27.0-34.0) 03/02/21 05:09 MCHC 33.5 g/dL (33.0-35.0) 03/02/21 05:09 RDW 14.1 % (11.6-16.5) 03/02/21 05:09 Plt Count 309 X10^3/uL (150.0-450.0) 03/02/21 05:09 Plt Count Comment Adequate (ADEQUATE) 03/02/21 05:09 MPV 9.7 fL (7.4-11.0) 03/02/21 05:09 Neut % (Auto) 90.6 % (42.0-75.0) H 03/02/21 05:09 Lymph % (Auto) 6.3 % (21.0-51.0) L 03/02/21 05:09 Vance % (Auto) 3.0 % (0.0-13.0) 03/02/21 05:09 Eos % (Auto) 0.0 % (0.9-2.9) L 03/02/21 05:09 Baso % (Auto) 0.1 % (0.2-1.0) L 03/02/21 05:09 Neut # (Auto) 14.4 x10^3/uL (2.2-4.8) H 03/02/21 05:09 Lymph # (Auto) 1.0 X10^3/uL (1.3-2.9) L 03/02/21 05:09 Vance # (Auto) 0.5 x10^3/uL (0.3-0.8) 03/02/21 05:09 Eos # (Auto) 0.0 x10^3/uL (0.0-0.2) 03/02/21 05:09 Baso # (Auto) 0.0 X10^3/uL (0.0-0.1) 03/02/21 05:09 Absolute Nucleated RBC 0.0 /100WBC 03/02/21 05:09 Total Counted 100 03/02/21 05:09 Neutrophils % (Manual) 90 % (39-76) H 03/02/21 05:09 Band Neutrophils % 2 % (0-10) 03/02/21 05:09 Lymphocytes % (Manual) 4 % (13-43) L 03/02/21 05:09 Monocytes % (Manual) 4 % (4-9) 03/02/21 05:09 Myelocytes % 1 02/26/21 05:45 Plt Morphology Comment Normal (NORMAL) 03/02/21 05:09 RBC Morphology Normal (NORMAL) 03/02/21 05:09 D-Dimer 1.59 ug/ml (0.0-0.57) H* 03/02/21 05:09 Sample Site Lr 03/02/21 05:00 ABG pH 7.460 (7.35-7.45) H 03/02/21 05:00 ABG pCO2 42.0 mmHg (35.0-45.0) 03/02/21 05:00 ABG pO2 73.0 mmHg (80.0-100.0) L 03/02/21 05:00 ABG HCO3 29.9 mmol/L (22-26) H 03/02/21 05:00 ABG O2 Saturation 95.0 % (90-100) 03/02/21 05:00 ABG Base Excess 5.5 mmol/L (-2.0-2.0) H 03/02/21 05:00 Yuval Test Pos 03/02/21 05:00 A-a Gradient 516.0 mmHg 03/02/21 05:00 FiO2 90.0 03/02/21 05:00 Blood Gas Comments Jacy well sw 03/02/21 05:00 Sodium 148 mmol/L (136-145) H 03/02/21 05:09 Corrected Sodium 149 mmol/L (136-145) H 03/02/21 05:09 Potassium 3.4 mmol/L (3.5-5.1) L 03/02/21 05:09 Chloride 111 mmol/L (98-107) H 03/02/21 05:09 Carbon Dioxide 28.9 mmol/L (21-32) 03/02/21 05:09 BUN 23 mg/dL (7-18) H 03/02/21 05:09 Creatinine 0.73 mg/dL (0.55-1.02) 03/02/21 05:09 Est GFR (MDRD) Af Amer > 60 (>60) 03/02/21 05:09 Est GFR (MDRD) Non-Af > 60 (>60) 03/02/21 05:09 Glucose 154 mg/dL (65-99) H 03/02/21 05:09 Lactic Acid 1.1 mmol/L (0.4-2.0) 02/23/21 18:39 Calcium 7.7 mg/dL (8.5-10.1) L 03/02/21 05:09 Corrected Calcium 9.2 mg/dL (8.5-10.1) 03/02/21 05:09 Magnesium 2.6 mg/dL (1.7-2.9) 02/26/21 05:45 Ferritin 290 ng/mL (8-252) H 03/02/21 05:09 Total Bilirubin 0.40 mg/dL (0.2-1.0) 03/02/21 05:09 AST 26 Units/L (15-37) 03/02/21 05:09 ALT 30 Units/L (12-78) 03/02/21 05:09 Alkaline Phosphatase 68 Units/L (46-116) 03/02/21 05:09 Creatine Kinase 490 Units/L (26-192) H 02/23/21 21:33 CK-MB (CK-2) < 1.0 ng/mL (0-4.0) 02/23/21 21:33 CK/CKMB % Calc 0.2 % (<4) 02/23/21 21:33 Troponin I < 0.02 ng/mL (0-1.5) 02/23/21 21:33 C-Reactive Protein 34.80 mg/L (0-3.0) H 03/02/21 05:09 B-Natriuretic Peptide 80.1 pg/mL (0-79) H 03/02/21 05:09 Total Protein 5.6 g/dL (6.4-8.2) L 03/02/21 05:09 Albumin 2.1 g/dL (3.4-5.0) L 03/02/21 05:09 Globulin 3.5 g/dL (2.5-4.5) 03/02/21 05:09 Albumin/Globulin Ratio 0.6 Ratio (1.1-2.1) L 03/02/21 05:09 Specimen Type Catherized urine 02/24/21 09:08 Urine Color Yellow (YELLOW) 02/24/21 09:08 Urine Appearance Clear (CLEAR) 02/24/21 09:08 Urine pH 6.0 (5.0 - 8.0) 02/24/21 09:08 Ur Specific [place] 1.015 (1.000-1.030) 02/24/21 09:08 Urine Protein 2+ (NEGATIVE) 02/24/21 09:08 Urine Glucose (UA) Negative (NEGATIVE) 02/24/21 09:08 Urine Ketones 4+ (NEGATIVE) 02/24/21 09:08 Urine Occult Blood Negative (NEGATIVE) 02/24/21 09:08 Urine Nitrite Negative (NEGATIVE) 02/24/21 09:08 Urine Bilirubin Negative (NEGATIVE) 02/24/21 09:08 Urine Urobilinogen Normal (NORMAL) 02/24/21 09:08 Ur Leukocyte Esterase Negative (NEGATIVE) 02/24/21 09:08 Urine RBC 3-5 /HPF (0-3) A 02/24/21 09:08 Urine WBC 3-5 /HPF (0-5) 02/24/21 09:08 Ur Squamous Epith Cells Rare /HPF (NEGATIVE) 02/24/21 09:08 Urine Bacteria Negative /HPF (NEGATIVE) 02/24/21 09:08 Urine Mucus Few /HPF (NEGATIVE) 02/24/21 09:08 Ur Culture Indicated? No/not indicated 02/24/21 09:08 SARS CoV-2 RNA Rapid PHILLIP Positive (NEGATIVE) A 02/23/21 14:05 Plan (1) Pneumonia due to COVID-19 virus: Status: Acute Plan: SUPPLEMENTAL OXYGEN, NS AT 80 ML/HR, ZOSYN 3.375G IV TID, ASCORBIC ACID 1500MG IV Q6H, ALBUTEROL NEBS QID, PULMICORT NEBS BID, MUCOMUST IN NEB TX, SOLU-MEDROL 80MG IV8H, FLUVOXAMINE 50MG PO BID, CYPROHEPTADINE 8MG PO TID, LOVENOX 30MG SC Q12H, LIPITOR 80MG PO HS, TESSALON PERLES 200MG PO TID, CETIRIZINE 10MG PO DAILY, IVERMECTIN, PEPCID 40MG PO BID, ROBITUSSIN DM 10ML PO QID PRN, HUMULIN R SLIDING SCALE, SINGULAIR 10MG PO HS, PROTONIX 40MG PO BID, MILK OF MAGNESIA 30ML PO BID, COLACE 100MG PO BID, THIAMINE 200MG IV BID, AND ZINC SULFATE 220MG PO BID. (2) Hypoxia: Status: Acute
[2021-03-02] MEDS: LIPITOR TAB 80 MG PO SCH (21:30)
[2021-03-02] MEDS: SINGULAIR TAB 10 MG PO SCH (21:30)
[2021-03-02] MEDS: SNACK - Diabetic Appropriate PO SCH (21:30)
[2021-03-03] MEDS: ASCORBIC ACID INJ MULTI-DOSE VIAL 1,500 MG in NS 50 ML IV 50 ML IV SCH ×4 (03:30→21:19)
[2021-03-03] MEDS: SOLU-Medrol 125 MG VIAL IVP SCH ×4 (03:31→21:24)
[2021-03-03 05:16] LABS: BASOPHILS # (AUTO) 0.1 X10^3/uL (0.0-0.1); BASOPHILS % (AUTO) 0.4 % (0.2-1.0); HEMATOCRIT 32.6 % (36.0-47.0); HEMOGLOBIN 11.1 g/dL (12.0-16.0); LYMPHOCYTES # (AUTO) 0.6 X10^3/uL (1.3-2.9); MEAN CORPUSCULAR HEMOGLOBIN 30.3 pg (27.0-34.0); MEAN CORPUSCULAR HGB CONC 33.9 g/dL (33.0-35.0); MEAN CORPUSCULAR VOLUME 89.5 fL (80.0-100.0); MEAN PLATELET VOLUME 9.5 fL (7.4-11.0); MONOCYTES # (AUTO) 0.7 x10^3/uL (0.3-0.8); MONOCYTES % (AUTO) 4.4 % (0.0-13.0); NEUTROPHILS # (AUTO) 14.1 x10^3/uL (2.2-4.8); NEUTROPHILS % (AUTO) 91.2 % (42.0-75.0); PLATELET COUNT 312 X10^3/uL (150.0-450.0); RED BLOOD COUNT 3.65 X10^6/uL (3.5-5.4); RED CELL DISTRIBUTION WIDTH 14.2 % (11.6-16.5); WHITE BLOOD COUNT 15.4 X10^3/uL (3.6-10.0)
[2021-03-03 05:21] LABS: ALANINE AMINOTRANSFERASE 27 Units/L (12-78); ALBUMIN 2.2 g/dL (3.4-5.0); ALKALINE PHOSPHATASE 70 Units/L (46-116); ASPARTATE AMINO TRANSFERASE 26 Units/L (15-37); BLOOD UREA NITROGEN 21 mg/dL (7-18); CALCIUM 7.6 mg/dL (8.5-10.1); CARBON DIOXIDE 28.9 mmol/L (21-32); CHLORIDE 107 mmol/L (98-107); COR NA(FOR HYPERGLY) 142 mmol/L (136-145); CREATININE 0.71 mg/dL (0.55-1.02); SODIUM 141 mmol/L (136-145); TOTAL PROTEIN 5.5 g/dL (6.4-8.2); eGFR NON BLACK RACES > 60 (>60)
[2021-03-03 05:26] LABS: ABG BASE EXCESS 4.7 mmol/L (-2.0-2.0); ABG HCO3 29.2 mmol/L (22-26)
[2021-03-03 05:27] LABS: ABG ALLEN TEST POS
[2021-03-03] MEDS: TESSALON PERLES PO SCH ×3 (05:38→21:31)
[2021-03-03] MEDS: ZOSYN VIAL 4.5 GRAMS 4.5 G in NS 100 ML IV + SPIKE MINIBAG* 100 ML IV SCH ×3 (05:39→21:31)
[2021-03-03] MEDS: ACCUNEB 1.25 MG NEBULE NEB SCH ×3 (05:45→21:00)
[2021-03-03] MEDS: MUCOMYST (RESPIRATORY USE ONLY) NEB SCH ×3 (05:45→21:00)
[2021-03-03 06:16] LABS: PLATELET MORPHOLOGY COMMENT NORMAL (NORMAL)
--- NOTE | 2021-03-03 07:13 | RAD ---
CHEST, 1 VIEWHISTORY: SOBStudy: Single view of the chest.Comparison:March 02, 2021Findings:The cardiomediastinal silhouette is normal. No change in the appearance of bilateral insterstitial and airspace opacities. Osseous structures demonstrate no acute abnormality.IMPRESSION:1. No change from prior.Electronically signed by: FRAN NAYLOR (Mar 03, 2021 07:06:05)
[2021-03-03] MEDS: PULMICORT NEB TX 0.5 MG NEB SCH ×2 (08:53→21:00)
[2021-03-03] MEDS: FLUVOXAMINE MALEATE PO SCH ×2 (08:59→21:31)
[2021-03-03] MEDS: COLACE CAP 100 MG PO SCH ×2 (08:59→21:20)
[2021-03-03] MEDS: LOVENOX INJ 100 MG SYR SC SCH ×2 (09:00→21:29)
[2021-03-03] MEDS: ZINC SULFATE PO SCH (09:01)
[2021-03-03] MEDS: PROTONIX TAB 40 MG PO SCH ×2 (09:01→21:27)
[2021-03-03] MEDS: THIAMINE HCL INJ IVP SCH ×2 (09:01→21:23)
[2021-03-03] MEDS: PEPCID TAB 40 MG PO SCH ×2 (09:01→21:28)
[2021-03-03] MEDS: VITAMIN D3 125 mcg (5,000 UNITS) PO SCH (09:01)
[2021-03-03] MEDS: ZyrTEC TAB 10 MG PO SCH (09:02)
[2021-03-03] MEDS: NS 1/2 1000 ML IV 1,000 ML IV SCH ×2 (11:00→18:18)
[2021-03-03] MEDS: MILK OF MAGNESIA PO SCH ×2 (11:00→21:29)
--- NOTE | 2021-03-03 13:42 | PCM.PROG ---
Progress Note Progress Note for Day of Date of Exam: 03/03/21 Subjective Subjective: PT IS A 35 YEAR OLD FEMALE ADMITTED FOR COVID PNEUMONIA AND HYPOXIA. THIS MORNING PATIENT IN SITTING IN RECLINER EATING BREAKFAST. SHE IS CURRENTLY UTILIZING HEATED HIGH FLOW OXYGEN WITH FIO2 85%. ON EXAMINATION, HEART IS REGULAR IN RATE AND RHYTHM. BILATERAL LUNGS ARE NOTED WITH WHEEZING THROUGHOUT. ABDOMEN IS ROUND, SOFT, AND NON-TENDER WITH NORMAL BOWEL SOUNDS NOTED IN ALL QUADRANTS. LABS/IMAGING: WBC 15.4, HGB 11.1, PLT 312, NA 141, K 3.6, CREATININE 0.71, GLUCOSE 157, CRP 34>19, ABG REVEALED: PH 7.45, PC02 42, P02 143, HC03 29, 02 SAT 99 ON FIO2 90% BIPAP. BLOOD CULTURE NGTD. A CHEST XRAY WAS OBTAINED AND REVEALED: No change in the appearance of bilateral interstitial and airspace opacities. SHE IS CURRENTLY RECEIVING NS AT 80 ML/HR, ZOSYN 3.375G IV TID, ASCORBIC ACID 1500MG IV Q6H, ALBUTEROL NEBS QID, PULMICORT NEBS BID, IV SOLU- MEDROL 125MG Q6H, FLUVOXAMINE 50MG PO BID, CYPROHEPTADINE 8MG PO TID, LOVENOX 100MG SC Q12H, LIPITOR 80MG PO HS, TESSALON PERLES 200MG PO TID, CETIRIZINE 10MG PO DAILY, IVERMECTIN, PEPCID 40MG PO BID, ROBITUSSIN DM 10ML PO QID PRN, HUMULIN R SLIDING SCALE, SINGULAIR 10MG PO HS, PROTONIX 40MG PO BID, MILK OF MAGNESIA 30ML PO BID, COLACE 100MG PO BID, THIAMINE 200MG IV BID, IV MORHPINE PRN, XANAX 0.5MG BID PRN, AND ZINC SULFATE 220MG PO BID. CONTINUE TO WEAN/TITRATE OXYGEN TOLERATED. WE WILL FOLLOW UP WITH AM LABS, CHEST XRAY, ABG, AND CONTINUE TO MONITOR. TIME SPENT ON CLINICAL ASSESSMENT, REVIEWING LABS AND IMAGING, DECISION MAKING, AND DOCUMENTATION GREATER THAN 75 MINUTES. Past Medical Family Social History Past Med/Fam/Surg Hx: No changes since H&P Allergies: Allergies prednisone Adverse Reaction (Verified 02/23/21 13:08) anxiety, mouth ulcer high doses Review of Systems ROS: No change since H&P Vital Signs and I&O's Vital Signs: Temperature 98.7 F Pulse Rate [Left Brachial] 75 Pulse Rate 57 Respiratory Rate 20 Blood Pressure [Left Arm] 123/68 Blood Pressure 163/70 O2 Sat by Pulse Oximetry 93 Intake and Output: Intake & Output 02/28/21 03/01/21 03/02/21 03/03/21 23:59 23:59 23:59 23:59 Intake Total 1935 / 1935 428 / 428 Output Total 860 / 860 0 / 0 Balance 107 / [id number] 428 / 428 Physical Exam Oriented: Normal Eyes: Normal Ear: Normal Nose: Normal Throat: Normal Respiratory: Generalized, Diminished and Rales Cardiovascular: Normal : Normal Auscultation: Bowel Sounds: Normal Tenderness: Normal Skin: Normal Musculoskeletal: Normal Psychiatric: Normal Mood Description: Calm Affect: Normal Speech Pattern: Clear and Appropriate Laboratory and Diagnostics Result Diagrams: 03/03/21 04:40 03/03/21 04:40 Labs: 02/23/21 21:33 Blood Blood Culture - Final 02/23/21 18:39 Blood Blood Culture - Final Laboratory WBC 15.4 X10^3/uL (3.6-10.0) H 03/03/21 04:40 RBC 3.65 X10^6/uL (3.5-5.4) 03/03/21 04:40 Hgb 11.1 g/dL (12.0-16.0) L 03/03/21 04:40 Hct 32.6 % (36.0-47.0) L 03/03/21 04:40 MCV 89.5 fL (80.0-100.0) 03/03/21 04:40 MCH 30.3 pg (27.0-34.0) 03/03/21 04:40 MCHC 33.9 g/dL (33.0-35.0) 03/03/21 04:40 RDW 14.2 % (11.6-16.5) 03/03/21 04:40 Plt Count 312 X10^3/uL (150.0-450.0) 03/03/21 04:40 Plt Count Comment Adequate (ADEQUATE) 03/03/21 04:40 MPV 9.5 fL (7.4-11.0) 03/03/21 04:40 Neut % (Auto) 91.2 % (42.0-75.0) H 03/03/21 04:40 Lymph % (Auto) 4.0 % (21.0-51.0) L 03/03/21 04:40 [place] % (Auto) 4.4 % (0.0-13.0) 03/03/21 04:40 Eos % (Auto) 0.0 % (0.9-2.9) L 03/03/21 04:40 Baso % (Auto) 0.4 % (0.2-1.0) 03/03/21 04:40 Neut # (Auto) 14.1 x10^3/uL (2.2-4.8) H 03/03/21 04:40 Lymph # (Auto) 0.6 X10^3/uL (1.3-2.9) L 03/03/21 04:40 [place] # (Auto) 0.7 x10^3/uL (0.3-0.8) 03/03/21 04:40 Eos # (Auto) 0.0 x10^3/uL (0.0-0.2) 03/03/21 04:40 Baso # (Auto) 0.1 X10^3/uL (0.0-0.1) 03/03/21 04:40 Absolute Nucleated RBC 0.0 /100WBC 03/03/21 04:40 Total Counted 100 03/03/21 04:40 Neutrophils % (Manual) 93 % (39-76) H 03/03/21 04:40 Band Neutrophils % 2 % (0-10) 03/02/21 05:09 Lymphocytes % (Manual) 5 % (13-43) L 03/03/21 04:40 Monocytes % (Manual) 2 % (4-9) L 03/03/21 04:40 Myelocytes % 1 02/26/21 05:45 Plt Morphology Comment Normal (NORMAL) 03/03/21 04:40 RBC Morphology Normal (NORMAL) 03/03/21 04:40 D-Dimer 1.57 ug/ml (0.0-0.57) H* 03/03/21 04:40 Sample Site Lrad 03/03/21 05:24 ABG pH 7.450 (7.35-7.45) 03/03/21 05:24 ABG pCO2 42.0 mmHg (35.0-45.0) 03/03/21 05:24 ABG pO2 143.0 mmHg (80.0-100.0) H 03/03/21 05:24 ABG HCO3 29.2 mmol/L (22-26) H 03/03/21 05:24 ABG O2 Saturation 99.0 % (90-100) 03/03/21 05:24 ABG Base Excess 4.7 mmol/L (-2.0-2.0) H 03/03/21 05:24 Yuval Test Pos 03/03/21 05:24 A-a Gradient 446.0 mmHg 03/03/21 05:24 FiO2 90.0 03/03/21 05:24 Blood Gas Comments Jacy abg well 03/03/21 05:24 Sodium 141 mmol/L (136-145) 03/03/21 04:40 Corrected Sodium 142 mmol/L (136-145) 03/03/21 04:40 Potassium 3.6 mmol/L (3.5-5.1) 03/03/21 04:40 Chloride 107 mmol/L (98-107) 03/03/21 04:40 Carbon Dioxide 28.9 mmol/L (21-32) 03/03/21 04:40 BUN 21 mg/dL (7-18) H 03/03/21 04:40 Creatinine 0.71 mg/dL (0.55-1.02) 03/03/21 04:40 Est GFR (MDRD) Af Amer > 60 (>60) 03/03/21 04:40 Est GFR (MDRD) Non-Af > 60 (>60) 03/03/21 04:40 Glucose 157 mg/dL (65-99) H 03/03/21 04:40 POC Glucose (mg/dL) 144 mg/dL (65-99) H 03/02/21 20:05 Lactic Acid 1.1 mmol/L (0.4-2.0) 02/23/21 18:39 Calcium 7.6 mg/dL (8.5-10.1) L 03/03/21 04:40 Corrected Calcium 9.0 mg/dL (8.5-10.1) 03/03/21 04:40 Magnesium 2.6 mg/dL (1.7-2.9) 02/26/21 05:45 Ferritin 245 ng/mL (8-252) 03/03/21 04:40 Total Bilirubin 0.40 mg/dL (0.2-1.0) 03/03/21 04:40 AST 26 Units/L (15-37) 03/03/21 04:40 ALT 27 Units/L (12-78) 03/03/21 04:40 Alkaline Phosphatase 70 Units/L (46-116) 03/03/21 04:40 Creatine Kinase 490 Units/L (26-192) H 02/23/21 21:33 CK-MB (CK-2) < 1.0 ng/mL (0-4.0) 02/23/21 21:33 CK/CKMB % Calc 0.2 % (<4) 02/23/21 21:33 Troponin I < 0.02 ng/mL (0-1.5) 02/23/21 21:33 C-Reactive Protein 19.40 mg/L (0-3.0) H 03/03/21 04:40 B-Natriuretic Peptide 107 pg/mL (0-79) H 03/03/21 04:40 Total Protein 5.5 g/dL (6.4-8.2) L 03/03/21 04:40 Albumin 2.2 g/dL (3.4-5.0) L 03/03/21 04:40 Globulin 3.3 g/dL (2.5-4.5) 03/03/21 04:40 Albumin/Globulin Ratio 0.7 Ratio (1.1-2.1) L 03/03/21 04:40 Specimen Type Catherized urine 02/24/21 09:08 Urine Color Yellow (YELLOW) 02/24/21 09:08 Urine Appearance Clear (CLEAR) 02/24/21 09:08 Urine pH 6.0 (5.0 - 8.0) 02/24/21 09:08 Ur Specific [place] 1.015 (1.000-1.030) 02/24/21 09:08 Urine Protein 2+ (NEGATIVE) 02/24/21 09:08 Urine Glucose (UA) Negative (NEGATIVE) 02/24/21 09:08 Urine Ketones 4+ (NEGATIVE) 02/24/21 09:08 Urine Occult Blood Negative (NEGATIVE) 02/24/21 09:08 Urine Nitrite Negative (NEGATIVE) 02/24/21 09:08 Urine Bilirubin Negative (NEGATIVE) 02/24/21 09:08 Urine Urobilinogen Normal (NORMAL) 02/24/21 09:08 Ur Leukocyte Esterase Negative (NEGATIVE) 02/24/21 09:08 Urine RBC 3-5 /HPF (0-3) A 02/24/21 09:08 Urine WBC 3-5 /HPF (0-5) 02/24/21 09:08 Ur Squamous Epith Cells Rare /HPF (NEGATIVE) 02/24/21 09:08 Urine Bacteria Negative /HPF (NEGATIVE) 02/24/21 09:08 Urine Mucus Few /HPF (NEGATIVE) 02/24/21 09:08 Ur Culture Indicated? No/not indicated 02/24/21 09:08 SARS CoV-2 RNA Rapid PHILLIP Positive (NEGATIVE) A 02/23/21 14:05 Plan (1) Pneumonia due to COVID-19 virus: Status: Acute Plan: SUPPLEMENTAL OXYGEN, NS AT 80 ML/HR, ZOSYN 3.375G IV TID, ASCORBIC ACID 1500MG IV Q6H, ALBUTEROL NEBS QID, PULMICORT NEBS BID, MUCOMUST IN NEB TX, SOLU-MEDROL 80MG IV8H, FLUVOXAMINE 50MG PO BID, CYPROHEPTADINE 8MG PO TID, LOVENOX 30MG SC Q12H, LIPITOR 80MG PO HS, TESSALON PERLES 200MG PO TID, CETIRIZINE 10MG PO DAILY, IVERMECTIN, PEPCID 40MG PO BID, ROBITUSSIN DM 10ML PO QID PRN, HUMULIN R SLIDING SCALE, SINGULAIR 10MG PO HS, PROTONIX 40MG PO BID, MILK OF MAGNESIA 30ML PO BID, COLACE 100MG PO BID, THIAMINE 200MG IV BID, AND ZINC SULFATE 220MG PO BID. (2) Hypoxia: Status: Acute
[2021-03-03] MEDS: K-DUR TAB 20 MEQ PO PRN (13:52)
[2021-03-03] MEDS ORDERED: NS 1/2 1000 ML IV 1,000 ML IV ONE (15:32)
[2021-03-03] MEDS: SNACK - Diabetic Appropriate PO SCH (21:18)
[2021-03-03] MEDS: VISTARIL PO PRN (21:21)
[2021-03-03] MEDS: SINGULAIR TAB 10 MG PO SCH (21:26)
[2021-03-03] MEDS: LIPITOR TAB 80 MG PO SCH (21:30)
[2021-03-04] MEDS: NS 1/2 1000 ML IV 1,000 ML IV SCH ×2 (02:29→12:45)
[2021-03-04] MEDS: ASCORBIC ACID INJ MULTI-DOSE VIAL 1,500 MG in NS 50 ML IV 50 ML IV SCH ×4 (02:52→20:47)
[2021-03-04] MEDS: SOLU-Medrol 125 MG VIAL IVP SCH ×4 (02:52→20:49)
[2021-03-04] MEDS: TESSALON PERLES PO SCH ×3 (05:22→22:24)
[2021-03-04 05:23] LABS: BASOPHILS % (AUTO) 0.2 % (0.2-1.0); HEMATOCRIT 32.2 % (36.0-47.0); LYMPHOCYTES % (AUTO) 6.1 % (21.0-51.0); MEAN CORPUSCULAR HEMOGLOBIN 30.3 pg (27.0-34.0); MEAN CORPUSCULAR HGB CONC 34.2 g/dL (33.0-35.0); MEAN CORPUSCULAR VOLUME 88.4 fL (80.0-100.0); MEAN PLATELET VOLUME 9.8 fL (7.4-11.0); NEUTROPHILS # (AUTO) 14.2 x10^3/uL (2.2-4.8); NEUTROPHILS % (AUTO) 87.7 % (42.0-75.0); PLATELET COUNT 285 X10^3/uL (150.0-450.0); RED BLOOD COUNT 3.64 X10^6/uL (3.5-5.4); RED CELL DISTRIBUTION WIDTH 14.2 % (11.6-16.5); WHITE BLOOD COUNT 16.2 X10^3/uL (3.6-10.0)
[2021-03-04] MEDS: ZOSYN VIAL 4.5 GRAMS 4.5 G in NS 100 ML IV + SPIKE MINIBAG* 100 ML IV SCH ×3 (05:23→22:24)
[2021-03-04 05:40] LABS: ABG BASE EXCESS 4.8 mmol/L (-2.0-2.0); ABG HCO3 28.1 mmol/L (22-26)
[2021-03-04 05:41] LABS: ABG ALLEN TEST POS
[2021-03-04] MEDS: ACCUNEB 1.25 MG NEBULE NEB SCH ×2 (05:48→20:05)
[2021-03-04 05:50] LABS: ALANINE AMINOTRANSFERASE 28 Units/L (12-78); ALBUMIN 2.2 g/dL (3.4-5.0); ALKALINE PHOSPHATASE 72 Units/L (46-116); ASPARTATE AMINO TRANSFERASE 26 Units/L (15-37); BLOOD UREA NITROGEN 18 mg/dL (7-18); CALCIUM 7.6 mg/dL (8.5-10.1); CARBON DIOXIDE 28.7 mmol/L (21-32); CHLORIDE 112 mmol/L (98-107); COR NA(FOR HYPERGLY) 148 mmol/L (136-145); CREATININE 0.72 mg/dL (0.55-1.02); SODIUM 147 mmol/L (136-145); TOTAL PROTEIN 5.3 g/dL (6.4-8.2); eGFR NON BLACK RACES > 60 (>60)
[2021-03-04] MEDS: K-DUR TAB 20 MEQ PO PRN (06:08)
[2021-03-04] MEDS: LOVENOX INJ 100 MG SYR SC SCH ×2 (08:36→20:51)
[2021-03-04] MEDS: VITAMIN D3 125 mcg (5,000 UNITS) PO SCH (08:36)
[2021-03-04] MEDS: COLACE CAP 100 MG PO SCH ×2 (08:36→20:48)
[2021-03-04] MEDS: FLUVOXAMINE MALEATE PO SCH ×2 (08:36→20:52)
[2021-03-04] MEDS: PEPCID TAB 40 MG PO SCH ×2 (08:37→20:51)
[2021-03-04] MEDS: MILK OF MAGNESIA PO SCH ×2 (08:37→20:51)
[2021-03-04] MEDS: ZyrTEC TAB 10 MG PO SCH (08:38)
[2021-03-04] MEDS: THIAMINE HCL INJ IVP SCH ×2 (08:38→20:48)
[2021-03-04] MEDS: ZINC SULFATE PO SCH (08:38)
[2021-03-04] MEDS: PROTONIX TAB 40 MG PO SCH ×2 (08:38→20:51)
[2021-03-04] MEDS: PULMICORT NEB TX 0.5 MG NEB SCH ×2 (09:00→20:05)
[2021-03-04] MEDS ORDERED: BUTT CREAM (COMPOUND) TOP PRN (10:13)
[2021-03-04] MEDS: MUCOMYST (RESPIRATORY USE ONLY) NEB SCH ×2 (11:13→20:05)
--- NOTE | 2021-03-04 11:15 | RAD ---
HISTORYSOBSTUDYPortable AP [id number] upper-normal heart size. Persistent diffuse bilateral airspace disease is minimally improved without evidence for additional consolidation, pneumothorax or developing pleural fluid.IMPRESSIONSlight interval improvement in appearance of the bilateral pneumonia.Electronically signed by: CUBA MCGARRY (Mar 04, 2021 11:12:55)
--- NOTE | 2021-03-04 12:16 | PCM.PROG ---
Progress Note Progress Note for Day of Date of Exam: 03/04/21 Subjective Subjective: PT IS A 35 YEAR OLD FEMALE ADMITTED FOR COVID PNEUMONIA AND HYPOXIA. THIS MORNING PATIENT IN SITTING IN RECLINER, SHE REPORTS FEELING A LITTLE BETTER. SHE IS CURRENTLY UTILIZING HEATED HIGH FLOW OXYGEN WITH FIO2 85% BUT AT TIMES HAS HAD IT DOWN TO 65%. ON EXAMINATION, HEART IS REGULAR IN RATE AND RHYTHM. BILATERAL LUNGS ARE NOTED WITH WHEEZING THROUGHOUT. ABDOMEN IS ROUND, SOFT, AND NON-TENDER WITH NORMAL BOWEL SOUNDS NOTED IN ALL QUADRANTS. LABS/IMAGING: WBC 16.2, HGB 11, PLT 285, NA 147, K 3.8, CREATININE 0.72, GLUCOSE 134, ABG REVEALED: PH 7.5, PC02 36, P02 236, HC03 28, 02 SAT 100 ON FIO2 80% BIPAP. BLOOD CULTURE NGTD. A CHEST XRAY WAS OBTAINED AND REVEALED: Slight interval improvement in appearance of the bilateral pneumonia. SHE IS CURRENTLY RECEIVING NS AT 80 ML/HR, ZOSYN 3.375G IV TID, ASCORBIC ACID 1500MG IV Q6H, ALBUTEROL NEBS QID, PULMICORT NEBS BID, IV SOLU-MEDROL 125MG Q6H, FLUVOXAMINE 50MG PO BID, CYPROHEPTADINE 8MG PO TID, LOVENOX 100MG SC Q12H, LIPITOR 80MG PO H S, TESSALON PERLES 200MG PO TID, CETIRIZINE 10MG PO DAILY, IVERMECTIN, PEPCID 40MG PO BID, ROBITUSSIN DM 10ML PO QID PRN, HUMULIN R SLIDING SCALE, SINGULAIR 10MG PO HS, PROTONIX 40MG PO BID, MILK OF MAGNESIA 30ML PO BID, COLACE 100MG PO BID, THIAMINE 200MG IV BID, IV MORHPINE PRN, XANAX 0.5MG BID PRN, AND ZINC SULFATE 220MG PO BID. CONTINUE TO WEAN/TITRATE OXYGEN TOLERATED. FOLLOW UP WITH AM LABS, CHEST XRAY, ABG, AND CONTINUE TO MONITOR. TIME SPENT ON CLINICAL ASSESSMENT, REVIEWING LABS AND IMAGING, DECISION MAKING, AND DOCUMENTATION GREATER THAN 45 MINUTES. Past Medical Family Social History Past Med/Fam/Surg Hx: No changes since H&P Allergies: Allergies prednisone Adverse Reaction (Verified 02/23/21 13:08) anxiety, mouth ulcer high doses Review of Systems ROS: No change since H&P Vital Signs and I&O's Vital Signs: Temperature 98.3 F Pulse Rate [Left Brachial] 75 Pulse Rate 78 Respiratory Rate 24 Blood Pressure [Left Arm] 123/68 Blood Pressure 141/65 O2 Sat by Pulse Oximetry 92 Intake and Output: Intake & Output 03/01/21 03/02/21 03/03/21 03/04/21 23:59 23:59 23:59 23:59 Intake Total 1954 / 382 Output Total 0 / 0 Balance 1954 382 / 382 Physical Exam Oriented: Normal Eyes: Normal Ear: Normal Nose: Normal Throat: Normal Respiratory: Generalized, Diminished and Rales Cardiovascular: Normal : Normal Auscultation: Bowel Sounds: Normal Tenderness: Normal Skin: Normal Musculoskeletal: Normal Psychiatric: Normal Mood Description: Calm Affect: Normal Speech Pattern: Clear and Appropriate Laboratory and Diagnostics Result Diagrams: 03/04/21 04:15 03/04/21 04:15 Labs: 02/23/21 21:33 Blood Blood Culture - Final 02/23/21 18:39 Blood Blood Culture - Final Laboratory WBC 16.2 X10^3/uL (3.6-10.0) H 03/04/21 04:15 RBC 3.64 X10^6/uL (3.5-5.4) 03/04/21 04:15 Hgb 11.0 g/dL (12.0-16.0) L 03/04/21 04:15 Hct 32.2 % (36.0-47.0) L 03/04/21 04:15 MCV 88.4 fL (80.0-100.0) 03/04/21 04:15 MCH 30.3 pg (27.0-34.0) 03/04/21 04:15 MCHC 34.2 g/dL (33.0-35.0) 03/04/21 04:15 RDW 14.2 % (11.6-16.5) 03/04/21 04:15 Plt Count 285 X10^3/uL (150.0-450.0) 03/04/21 04:15 Plt Count Comment Adequate (ADEQUATE) 03/03/21 04:40 MPV 9.8 fL (7.4-11.0) 03/04/21 04:15 Neut % (Auto) 87.7 % (42.0-75.0) H 03/04/21 04:15 Lymph % (Auto) 6.1 % (21.0-51.0) L 03/04/21 04:15 [place] % (Auto) 6.0 % (0.0-13.0) 03/04/21 04:15 Eos % (Auto) 0.0 % (0.9-2.9) L 03/04/21 04:15 Baso % (Auto) 0.2 % (0.2-1.0) 03/04/21 04:15 Neut # (Auto) 14.2 x10^3/uL (2.2-4.8) H 03/04/21 04:15 Lymph # (Auto) 1.0 X10^3/uL (1.3-2.9) L 03/04/21 04:15 [place] # (Auto) 1.0 x10^3/uL (0.3-0.8) H 03/04/21 04:15 Eos # (Auto) 0.0 x10^3/uL (0.0-0.2) 03/04/21 04:15 Baso # (Auto) 0.0 X10^3/uL (0.0-0.1) 03/04/21 04:15 Absolute Nucleated RBC 0.0 /100WBC 03/04/21 04:15 Total Counted 100 03/03/21 04:40 Neutrophils % (Manual) 93 % (39-76) H 03/03/21 04:40 Band Neutrophils % 2 % (0-10) 03/02/21 05:09 Lymphocytes % (Manual) 5 % (13-43) L 03/03/21 04:40 Monocytes % (Manual) 2 % (4-9) L 03/03/21 04:40 Myelocytes % 1 02/26/21 05:45 Plt Morphology Comment Normal (NORMAL) 03/03/21 04:40 RBC Morphology Normal (NORMAL) 03/03/21 04:40 D-Dimer 1.96 ug/ml (0.0-0.57) H* 03/04/21 04:15 Sample Site Lrad 03/04/21 05:36 ABG pH 7.500 (7.35-7.45) H 03/04/21 05:36 ABG pCO2 36.0 mmHg (35.0-45.0) 03/04/21 05:36 ABG pO2 236.0 mmHg (80.0-100.0) H 03/04/21 05:36 ABG HCO3 28.1 mmol/L (22-26) H 03/04/21 05:36 ABG O2 Saturation 100.0 % (90-100) 03/04/21 05:36 ABG Base Excess 4.8 mmol/L (-2.0-2.0) H 03/04/21 05:36 Yuval Test Pos 03/04/21 05:36 A-a Gradient 289.0 mmHg 03/04/21 05:36 FiO2 80.0 03/04/21 05:36 Blood Gas Comments Jacy well mts 03/04/21 05:36 Sodium 147 mmol/L (136-145) H 03/04/21 04:15 Corrected Sodium 148 mmol/L (136-145) H 03/04/21 04:15 Potassium 3.8 mmol/L (3.5-5.1) 03/04/21 04:15 Chloride 112 mmol/L (98-107) H 03/04/21 04:15 Carbon Dioxide 28.7 mmol/L (21-32) 03/04/21 04:15 BUN 18 mg/dL (7-18) 03/04/21 04:15 Creatinine 0.72 mg/dL (0.55-1.02) 03/04/21 04:15 Est GFR (MDRD) Af Amer > 60 (>60) 03/04/21 04:15 Est GFR (MDRD) Non-Af > 60 (>60) 03/04/21 04:15 Glucose 134 mg/dL (65-99) H 03/04/21 04:15 POC Glucose (mg/dL) 139 mg/dL (65-99) H 03/03/21 21:08 Lactic Acid 1.1 mmol/L (0.4-2.0) 02/23/21 18:39 Calcium 7.6 mg/dL (8.5-10.1) L 03/04/21 04:15 Corrected Calcium 9.0 mg/dL (8.5-10.1) 03/04/21 04:15 Magnesium 2.6 mg/dL (1.7-2.9) 02/26/21 05:45 Ferritin 221 ng/mL (8-252) 03/04/21 04:15 Total Bilirubin 0.50 mg/dL (0.2-1.0) 03/04/21 04:15 AST 26 Units/L (15-37) 03/04/21 04:15 ALT 28 Units/L (12-78) 03/04/21 04:15 Alkaline Phosphatase 72 Units/L (46-116) 03/04/21 04:15 Creatine Kinase 490 Units/L (26-192) H 02/23/21 21:33 CK-MB (CK-2) < 1.0 ng/mL (0-4.0) 02/23/21 21:33 CK/CKMB % Calc 0.2 % (<4) 02/23/21 21:33 Troponin I < 0.02 ng/mL (0-1.5) 02/23/21 21:33 C-Reactive Protein 11.50 mg/L (0-3.0) H 03/04/21 04:15 B-Natriuretic Peptide 109 pg/mL (0-79) H 03/04/21 04:15 Total Protein 5.3 g/dL (6.4-8.2) L 03/04/21 04:15 Albumin 2.2 g/dL (3.4-5.0) L 03/04/21 04:15 Globulin 3.1 g/dL (2.5-4.5) 03/04/21 04:15 Albumin/Globulin Ratio 0.7 Ratio (1.1-2.1) L 03/04/21 04:15 Specimen Type Catherized urine 02/24/21 09:08 Urine Color Yellow (YELLOW) 02/24/21 09:08 Urine Appearance Clear (CLEAR) 02/24/21 09:08 Urine pH 6.0 (5.0 - 8.0) 02/24/21 09:08 Ur Specific [place] 1.015 (1.000-1.030) 02/24/21 09:08 Urine Protein 2+ (NEGATIVE) 02/24/21 09:08 Urine Glucose (UA) Negative (NEGATIVE) 02/24/21 09:08 Urine Ketones 4+ (NEGATIVE) 02/24/21 09:08 Urine Occult Blood Negative (NEGATIVE) 02/24/21 09:08 Urine Nitrite Negative (NEGATIVE) 02/24/21 09:08 Urine Bilirubin Negative (NEGATIVE) 02/24/21 09:08 Urine Urobilinogen Normal (NORMAL) 02/24/21 09:08 Ur Leukocyte Esterase Negative (NEGATIVE) 02/24/21 09:08 Urine RBC 3-5 /HPF (0-3) A 02/24/21 09:08 Urine WBC 3-5 /HPF (0-5) 02/24/21 09:08 Ur Squamous Epith Cells Rare /HPF (NEGATIVE) 02/24/21 09:08 Urine Bacteria Negative /HPF (NEGATIVE) 02/24/21 09:08 Urine Mucus Few /HPF (NEGATIVE) 02/24/21 09:08 Ur Culture Indicated? No/not indicated 02/24/21 09:08 SARS CoV-2 RNA Rapid PHILLIP Positive (NEGATIVE) A 02/23/21 14:05 Plan (1) Pneumonia due to COVID-19 virus: Status: Acute Plan: SUPPLEMENTAL OXYGEN, NS AT 80 ML/HR, ZOSYN 3.375G IV TID, ASCORBIC ACID 1500MG IV Q6H, ALBUTEROL NEBS QID, PULMICORT NEBS BID, MUCOMUST IN NEB [place], SOLU-MEDROL 80MG IV8H, FLUVOXAMINE 50MG PO BID, CYPROHEPTADINE 8MG PO TID, LOVENOX 30MG SC Q12H, LIPITOR 80MG PO HS, TESSALON PERLES 200MG PO TID, CETIRIZINE 10MG PO DAILY, IVERMECTIN, PEPCID 40MG PO BID, ROBITUSSIN DM 10ML PO QID PRN, HUMULIN R SLIDING SCALE, SINGULAIR 10MG PO HS, PROTONIX 40MG PO BID, MILK OF MAGNESIA 30ML PO BID, COLACE 100MG PO BID, THIAMINE 200MG IV BID, AND ZINC SULFATE 220MG PO BID. (2) Hypoxia: Status: Acute
[2021-03-04] MEDS: ROBITUSSIN DM PO PRN (20:48)
[2021-03-04] MEDS: SINGULAIR TAB 10 MG PO SCH (20:49)
[2021-03-04] MEDS: LIPITOR TAB 80 MG PO SCH (20:52)
[2021-03-04] MEDS: XANAX PO PRN (22:24)
[2021-03-04] MEDS ORDERED: TUSSIONEX PENNKINETIC SUSP PO PRN (22:25)
[2021-03-05] MEDS: SOLU-Medrol 125 MG VIAL IVP SCH ×4 (02:27→20:15)
[2021-03-05] MEDS: ASCORBIC ACID INJ MULTI-DOSE VIAL 1,500 MG in NS 50 ML IV 50 ML IV SCH ×4 (02:27→20:14)
[2021-03-05 05:18] LABS: BASOPHILS % (AUTO) 0.3 % (0.2-1.0); HEMATOCRIT 32.7 % (36.0-47.0); HEMOGLOBIN 11.2 g/dL (12.0-16.0); LYMPHOCYTES # (AUTO) 0.9 X10^3/uL (1.3-2.9); LYMPHOCYTES % (AUTO) 5.6 % (21.0-51.0); MEAN CORPUSCULAR HEMOGLOBIN 30.2 pg (27.0-34.0); MEAN CORPUSCULAR HGB CONC 34.3 g/dL (33.0-35.0); MEAN CORPUSCULAR VOLUME 88.1 fL (80.0-100.0); MEAN PLATELET VOLUME 10.3 fL (7.4-11.0); MONOCYTES # (AUTO) 0.6 x10^3/uL (0.3-0.8); MONOCYTES % (AUTO) 3.5 % (0.0-13.0); NEUTROPHILS # (AUTO) 14.9 x10^3/uL (2.2-4.8); NEUTROPHILS % (AUTO) 90.6 % (42.0-75.0); PLATELET COUNT 241 X10^3/uL (150.0-450.0); RED BLOOD COUNT 3.72 X10^6/uL (3.5-5.4); RED CELL DISTRIBUTION WIDTH 13.5 % (11.6-16.5); WHITE BLOOD COUNT 16.5 X10^3/uL (3.6-10.0)
[2021-03-05 05:28] LABS: ALANINE AMINOTRANSFERASE 30 Units/L (12-78); ALBUMIN 2.2 g/dL (3.4-5.0); ALKALINE PHOSPHATASE 79 Units/L (46-116); ASPARTATE AMINO TRANSFERASE 28 Units/L (15-37); BLOOD UREA NITROGEN 16 mg/dL (7-18); CALCIUM 7.4 mg/dL (8.5-10.1); CARBON DIOXIDE 27.8 mmol/L (21-32); CHLORIDE 108 mmol/L (98-107); COR CA(FOR HYPOALB) 8.8 mg/dL (8.5-10.1); COR NA(FOR HYPERGLY) 143 mmol/L (136-145); CREATININE 0.64 mg/dL (0.55-1.02); SODIUM 142 mmol/L (136-145); TOTAL PROTEIN 5.3 g/dL (6.4-8.2); eGFR NON BLACK RACES > 60 (>60)
[2021-03-05 05:35] LABS: ABG ALLEN TEST POS; ABG BASE EXCESS 5.5 mmol/L (-2.0-2.0); ABG HCO3 28.9 mmol/L (22-26)
[2021-03-05] MEDS: ZOSYN VIAL 4.5 GRAMS 4.5 G in NS 100 ML IV + SPIKE MINIBAG* 100 ML IV SCH ×3 (05:36→22:35)
[2021-03-05] MEDS: TESSALON PERLES PO SCH ×3 (05:36→21:00)
[2021-03-05 05:56] LABS: PLATELET MORPHOLOGY COMMENT NORMAL (NORMAL)
[2021-03-05] MEDS: MUCOMYST (RESPIRATORY USE ONLY) NEB SCH ×3 (06:37→20:30)
[2021-03-05] MEDS: ACCUNEB 1.25 MG NEBULE NEB SCH ×3 (06:37→20:30)
[2021-03-05] MEDS: K-DUR TAB 20 MEQ PO PRN (06:59)
[2021-03-05] MEDS: NS 1/2 1000 ML IV 1,000 ML IV SCH ×2 (07:11→14:00)
--- NOTE | 2021-03-05 07:54 | RAD ---
HISTORYSOBSTUDYCHEST, 1 [id number]/2021FINDINGSAbnormal opacity in the left and right lung represents pneumonia. There has been a slight progression since yesterday. No significant pleural effusion. No pneumothorax.The heart size is magnified.Bones are unremarkable.EKG leads are noted.IMPRESSION1. Progressed pneumoniaElectronically signed by: Conner Ortiz (Mar 05, 2021 07:52:02)
[2021-03-05] MEDS: LOVENOX INJ 100 MG SYR SC SCH ×2 (08:16→20:15)
[2021-03-05] MEDS: VITAMIN D3 125 mcg (5,000 UNITS) PO SCH (08:16)
[2021-03-05] MEDS: ZINC SULFATE PO SCH (08:17)
[2021-03-05] MEDS: ZyrTEC TAB 10 MG PO SCH (08:17)
[2021-03-05] MEDS: PROTONIX TAB 40 MG PO SCH ×2 (08:17→20:14)
[2021-03-05] MEDS: FLUVOXAMINE MALEATE PO SCH ×2 (08:18→20:14)
[2021-03-05] MEDS: PEPCID TAB 40 MG PO SCH ×2 (08:18→20:14)
[2021-03-05] MEDS: THIAMINE HCL INJ IVP SCH ×2 (08:19→20:16)
[2021-03-05] MEDS: COLACE CAP 100 MG PO SCH ×2 (08:24→20:14)
[2021-03-05] MEDS: MILK OF MAGNESIA PO SCH ×2 (08:25→21:25)
[2021-03-05] MEDS: PULMICORT NEB TX 0.5 MG NEB SCH ×2 (08:40→20:30)
--- NOTE | 2021-03-05 15:04 | PCM.PROG ---
Progress Note - Progress Note for Day of Date of Exam: 03/05/21 - Subjective Subjective: MS. SANDERS WAS ADMITTED FOR TREATMENT OF COVID PNEUMONIA AND HYPOXIA. TODAY, SHE IS ALERT AND ORIENTED, LYING IN THE BED ON MORNING ROUNDS. SHE IS CURRENTLY UTILIZING HEATED HIGH FLOW OXYGEN WITH FI02 AT 80%. SHE USED THE BIPAP LAST NIGHT. SHE REPORTS SLIGHT IMPROVEMENT SINCE WE SAW HER LAST WEEK. HER SATURATIONS HAVE BEEN 89-99% THIS MORNING AND THROUGHOUT THE NIGHT. ON EXAMINATION, HEART IS REGULAR IN RATE AND RHYTHM. BILATERAL LUNGS ARE NOTED WITH WHEEZING THROUGHOUT. ABDOMEN IS ROUND, SOFT, AND NON-TENDER WITH NORMAL BOWEL SOUNDS NOTED IN ALL QUADRANTS. HIS VITALS THIS MORNING ARE: 98 .1-76-40-89%-131/70. LABS WERE OBTAINED. ABNORMAL LAB VALUES INCLUDE THE FOLLOWING: WBC 16.5, HGB 11.2, HCT 32.7, D-DIMER 2.18, CHLORIDE 108, GLUCOSE 135, CALCIUM 7.4, CRP 6.80, BNP 99.6, TOTAL PROTEIN 5.3, ALBUMIN 2.2. ABG REVEALED: PH 7.500, PC02 37, P02 165, HC03 28.9, 02 SAT 100, BASE EXCESS 5.5, A- A GRADIENT 359, FI02 80. A CHEST XRAY WAS OBTAINED AND REVEALED: 1. Progressed pneumonia. SHE IS CURRENTLY RECEIVING NS AT [facility], ZOSYN 4.5G IV TID, ASCORBIC ACID 1500MG IV Q6H, ALBUTEROL NEBS QID, PULMICORT NEBS BID, IV SOLU-MEDROL 125MG Q6H, FLUVOXAMINE 50MG PO BID, CYPROHEPTADINE 8MG PO TID, LOVENOX 100MG SC Q12H, LIPITOR 80MG PO HS, TESSALON PERLES 200MG PO TID, CETIRIZINE 10MG PO DAILY, T USSIONEX Q12H PRN, MORPHINE SULFATE 2MG IV Q6H PRN, PEPCID 40MG PO BID, ROBITUSSIN DM 10ML PO QID PRN, HUMULIN R SLIDING SCALE, SINGULAIR 10MG PO HS, PROTONIX 40MG PO BID, MILK OF MAGNESIA 30ML PO BID, COLACE 100MG PO BID, THIAMINE 200MG IV BID, IV MORHPINE PRN, XANAX 0.5MG BID PRN, AND ZINC SULFATE 220MG PO BID. WE DISCUSSED WITH PATIENT THE IMPORTANCE OF GETTING OUT OF BED TO CHAIR AND MOVING AROUND. SHE VERBALIZED UNDERSTANDING. OTHERWISE, WE WILL CONTINUE WITH CURRENT PLAN OF CARE TODAY AND ATTEMPT TO WEAN DOWN OXYGEN SHE TOLERATES IT. WE WILL FOLLOW UP WITH AM LABS, CHEST XRAY, ABG, AND CONTINUE TO MONITOR. TIME SPENT ON CLINICAL ASSESSMENT, REVIEWING LABS AND IMAGING, DECISION MAKING, AND DOCUMENTATION GREATER THAN 45 MINUTES. - Past Medical Family Social History Past Med/Fam/Surg Hx: No changes since H&P Allergies: Allergies prednisone Adverse Reaction (Verified 02/23/21 13:08) anxiety, mouth ulcer high doses - Review of Systems ROS: No change since H&P - Vital Signs and I&O's Vital Signs: Temperature 98.2 F Pulse Rate [Left Brachial] 75 Pulse Rate 55 Respiratory Rate 23 Blood Pressure [Left Arm] 123/68 Blood Pressure 159/74 O2 Sat by Pulse Oximetry 97 Intake and Output: Intake & Output 03/03/21 03/04/21 03/05/21 03/06/21 11:59 11:59 11:59 11:59 Intake Total 2045 / 2466 2420 / 2420 858 / 858 Output Total 0 / 0 Balance 2045 2466 / 2466 2420 / 2420 858 / 858 - Physical Exam Oriented: Normal Eyes: Normal Ear: Normal Nose: Normal Throat: Normal Respiratory: Generalized, Diminished, Wheezes Cardiovascular: Normal : Normal Auscultation: Bowel Sounds: Normal Tenderness: Normal Skin: Normal Musculoskeletal: Normal Psychiatric: Normal Mood Description: Calm Affect: Normal Speech Pattern: Clear, Appropriate - Laboratory and Diagnostics Result Diagrams: 03/05/21 04:20 03/05/21 04:20 Labs: 02/23/21 21:33 Blood Blood Culture - Final 02/23/21 18:39 Blood Blood Culture - Final Laboratory WBC 16.5 X10^3/uL (3.6-10.0) H 03/05/21 04:20 RBC 3.72 X10^6/uL (3.5-5.4) 03/05/21 04:20 Hgb 11.2 g/dL (12.0-16.0) L 03/05/21 04:20 Hct 32.7 % (36.0-47.0) L 03/05/21 04:20 MCV 88.1 fL (80.0-100.0) 03/05/21 04:20 MCH 30.2 pg (27.0-34.0) 03/05/21 04:20 MCHC 34.3 g/dL (33.0-35.0) 03/05/21 04:20 RDW 13.5 % (11.6-16.5) 03/05/21 04:20 Plt Count 241 X10^3/uL (150.0-450.0) 03/05/21 04:20 Plt Count Comment Adequate (ADEQUATE) 03/05/21 04:20 MPV 10.3 fL (7.4-11.0) 03/05/21 04:20 Neut % (Auto) 90.6 % (42.0-75.0) H 03/05/21 04:20 Lymph % (Auto) 5.6 % (21.0-51.0) L 03/05/21 04:20 [place] % (Auto) 3.5 % (0.0-13.0) 03/05/21 04:20 Eos % (Auto) 0.0 % (0.9-2.9) L 03/05/21 04:20 Baso % (Auto) 0.3 % (0.2-1.0) 03/05/21 04:20 Neut # (Auto) 14.9 x10^3/uL (2.2-4.8) H 03/05/21 04:20 Lymph # (Auto) 0.9 X10^3/uL (1.3-2.9) L 03/05/21 04:20 [place] # (Auto) 0.6 x10^3/uL (0.3-0.8) 03/05/21 04:20 Eos # (Auto) 0.0 x10^3/uL (0.0-0.2) 03/05/21 04:20 Baso # (Auto) 0.0 X10^3/uL (0.0-0.1) 03/05/21 04:20 Absolute Nucleated RBC 0.0 /100WBC 03/05/21 04:20 Total Counted 100 03/05/21 04:20 Neutrophils % (Manual) 94 % (39-76) H 03/05/21 04:20 Band Neutrophils % 2 % (0-10) 03/02/21 05:09 Lymphocytes % (Manual) 2 % (13-43) L 03/05/21 04:20 Monocytes % (Manual) 4 % (4-9) 03/05/21 04:20 Myelocytes % 1 02/26/21 05:45 Plt Morphology Comment Normal (NORMAL) 03/05/21 04:20 RBC Morphology Normal (NORMAL) 03/05/21 04:20 D-Dimer 2.18 ug/ml (0.0-0.57) H* 03/05/21 04:20 Sample Site Rrad 03/05/21 05:30 ABG pH 7.500 (7.35-7.45) H 03/05/21 05:30 ABG pCO2 37.0 mmHg (35.0-45.0) 03/05/21 05:30 ABG pO2 165.0 mmHg (80.0-100.0) H 03/05/21 05:30 ABG HCO3 28.9 mmol/L (22-26) H 03/05/21 05:30 ABG O2 Saturation 100.0 % (90-100) 03/05/21 05:30 ABG Base Excess 5.5 mmol/L (-2.0-2.0) H 03/05/21 05:30 Yuval Test Pos 03/05/21 05:30 A-a Gradient 359.0 mmHg 03/05/21 05:30 FiO2 80.0 03/05/21 05:30 Blood Gas Comments Jacy well mts 03/05/21 05:30 Sodium 142 mmol/L (136-145) 03/05/21 04:20 Corrected Sodium 143 mmol/L (136-145) 03/05/21 04:20 Potassium 3.5 mmol/L (3.5-5.1) 03/05/21 04:20 Chloride 108 mmol/L (98-107) H 03/05/21 04:20 Carbon Dioxide 27.8 mmol/L (21-32) 03/05/21 04:20 BUN 16 mg/dL (7-18) 03/05/21 04:20 Creatinine 0.64 mg/dL (0.55-1.02) 03/05/21 04:20 Est GFR (MDRD) Af Amer > 60 (>60) 03/05/21 04:20 Est GFR (MDRD) Non-Af > 60 (>60) 03/05/21 04:20 Glucose 135 mg/dL (65-99) H 03/05/21 04:20 POC Glucose (mg/dL) 139 mg/dL (65-99) H 03/03/21 21:08 Lactic Acid 1.1 mmol/L (0.4-2.0) 02/23/21 18:39 Calcium 7.4 mg/dL (8.5-10.1) L 03/05/21 04:20 Corrected Calcium 8.8 mg/dL (8.5-10.1) 03/05/21 04:20 Magnesium 2.3 mg/dL (1.7-2.9) 03/05/21 04:20 Ferritin 221 ng/mL (8-252) 03/05/21 04:20 Total Bilirubin 0.60 mg/dL (0.2-1.0) 03/05/21 04:20 AST 28 Units/L (15-37) 03/05/21 04:20 ALT 30 Units/L (12-78) 03/05/21 04:20 Alkaline Phosphatase 79 Units/L (46-116) 03/05/21 04:20 Creatine Kinase 490 Units/L (26-192) H 02/23/21 21:33 CK-MB (CK-2) < 1.0 ng/mL (0-4.0) 02/23/21 21:33 CK/CKMB % Calc 0.2 % (<4) 02/23/21 21:33 Troponin I < 0.02 ng/mL (0-1.5) 02/23/21 21:33 C-Reactive Protein 6.80 mg/L (0-3.0) H 03/05/21 04:20 B-Natriuretic Peptide 99.6 pg/mL (0-79) H 03/05/21 04:20 Total Protein 5.3 g/dL (6.4-8.2) L 03/05/21 04:20 Albumin 2.2 g/dL (3.4-5.0) L 03/05/21 04:20 Globulin 3.1 g/dL (2.5-4.5) 03/05/21 04:20 Albumin/Globulin Ratio 0.7 Ratio (1.1-2.1) L 03/05/21 04:20 Specimen Type Catherized urine 02/24/21 09:08 Urine Color Yellow (YELLOW) 02/24/21 09:08 Urine Appearance Clear (CLEAR) 02/24/21 09:08 Urine pH 6.0 (5.0 - 8.0) 02/24/21 09:08 Ur Specific [place] 1.015 (1.000-1.030) 02/24/21 09:08 Urine Protein 2+ (NEGATIVE) 02/24/21 09:08 Urine Glucose (UA) Negative (NEGATIVE) 02/24/21 09:08 Urine Ketones 4+ (NEGATIVE) 02/24/21 09:08 Urine Occult Blood Negative (NEGATIVE) 02/24/21 09:08 Urine Nitrite Negative (NEGATIVE) 02/24/21 09:08 Urine Bilirubin Negative (NEGATIVE) 02/24/21 09:08 Urine Urobilinogen Normal (NORMAL) 02/24/21 09:08 Ur Leukocyte Esterase Negative (NEGATIVE) 02/24/21 09:08 Urine RBC 3-5 /HPF (0-3) A 02/24/21 09:08 Urine WBC 3-5 /HPF (0-5) 02/24/21 09:08 Ur Squamous Epith Cells Rare /HPF (NEGATIVE) 02/24/21 09:08 Urine Bacteria Negative /HPF (NEGATIVE) 02/24/21 09:08 Urine Mucus Few /HPF (NEGATIVE) 02/24/21 09:08 Ur Culture Indicated? No/not indicated 02/24/21 09:08 SARS CoV-2 RNA Rapid PHILLIP Positive (NEGATIVE) A 02/23/21 14:05 - Plan (1) Pneumonia due to COVID-19 virus Status: Acute Plan: NS AT O, ZOSYN 4.5G IV TID, ASCORBIC ACID 1500MG IV Q6H, ALBUTEROL NEBS QID, PULMICORT NEBS BID, IV SOLU-MEDROL 125MG Q6H, FLUVOXAMINE 50MG PO BID, CYPROHEPTADINE 8MG PO TID, LOVENOX 100MG SC Q12H, LIPITOR 80MG PO HS, TESSALON P [place]RL[place] 200MG PO TID, CETIRIZINE 10MG PO DAILY, TUSSIONEX Q12H PRN, MORPHINE SULFATE 2MG IV Q6H PRN, PEPCID 40MG PO BID, ROBITUSSIN DM 10ML PO QID PRN, HUMULIN R SLIDING SCALE, SINGULAIR 10MG PO HS, PROTONIX 40MG PO BID, MILK OF MAGNESIA 30ML PO BID, COLACE 100MG PO BID, THIAMINE 200MG IV BID, IV MORHPINE PRN, XANAX 0.5MG BID PRN, AND ZINC SULFATE 220MG PO BID. (2) Hypoxia Status: Acute
[2021-03-05] MEDS: SINGULAIR TAB 10 MG PO SCH (20:14)
[2021-03-05] MEDS: LIPITOR TAB 80 MG PO SCH (20:14)
[2021-03-05] MEDS: VISTARIL PO PRN (23:45)
[2021-03-06] MEDS ORDERED: NS 1/2 1000 ML IV 1,000 ML IV ONE (01:37)
[2021-03-06] MEDS: NS 1/2 1000 ML IV 1,000 ML IV SCH ×3 (02:10→17:00)
[2021-03-06] MEDS: ASCORBIC ACID INJ MULTI-DOSE VIAL 1,500 MG in NS 50 ML IV 50 ML IV SCH ×4 (02:10→20:20)
[2021-03-06] MEDS: SOLU-Medrol 125 MG VIAL IVP SCH ×4 (02:10→20:21)
[2021-03-06 04:59] LABS: ABG BASE EXCESS 5.2 mmol/L (-2.0-2.0)
[2021-03-06 05:00] LABS: ABG ALLEN TEST POS
[2021-03-06 05:12] LABS: BASOPHILS % (AUTO) 0.1 % (0.2-1.0); HEMATOCRIT 32.3 % (36.0-47.0); LYMPHOCYTES % (AUTO) 5.7 % (21.0-51.0); MEAN CORPUSCULAR HEMOGLOBIN 30.5 pg (27.0-34.0); MEAN CORPUSCULAR HGB CONC 34.1 g/dL (33.0-35.0); MEAN CORPUSCULAR VOLUME 89.4 fL (80.0-100.0); MEAN PLATELET VOLUME 10.8 fL (7.4-11.0); MONOCYTES # (AUTO) 0.7 x10^3/uL (0.3-0.8); MONOCYTES % (AUTO) 3.7 % (0.0-13.0); NEUTROPHILS % (AUTO) 90.5 % (42.0-75.0); PLATELET COUNT 220 X10^3/uL (150.0-450.0); RED BLOOD COUNT 3.62 X10^6/uL (3.5-5.4); RED CELL DISTRIBUTION WIDTH 13.5 % (11.6-16.5); WHITE BLOOD COUNT 17.7 X10^3/uL (3.6-10.0)
[2021-03-06 05:37] LABS: ALANINE AMINOTRANSFERASE 32 Units/L (12-78); ALBUMIN 2.1 g/dL (3.4-5.0); ALKALINE PHOSPHATASE 78 Units/L (46-116); ASPARTATE AMINO TRANSFERASE 25 Units/L (15-37); BLOOD UREA NITROGEN 16 mg/dL (7-18); CALCIUM 7.4 mg/dL (8.5-10.1); CHLORIDE 109 mmol/L (98-107); COR CA(FOR HYPOALB) 8.9 mg/dL (8.5-10.1); COR NA(FOR HYPERGLY) 144 mmol/L (136-145); CREATININE 0.63 mg/dL (0.55-1.02); SODIUM 143 mmol/L (136-145); eGFR NON BLACK RACES > 60 (>60)
[2021-03-06] MEDS: TESSALON PERLES PO SCH ×3 (05:53→22:35)
[2021-03-06] MEDS: ZOSYN VIAL 4.5 GRAMS 4.5 G in NS 100 ML IV + SPIKE MINIBAG* 100 ML IV SCH ×3 (05:54→22:35)
[2021-03-06 05:57] LABS: PLATELET MORPHOLOGY COMMENT NORMAL (NORMAL)
[2021-03-06] MEDS: K-DUR TAB 20 MEQ PO PRN (06:28)
[2021-03-06] MEDS: ACCUNEB 1.25 MG NEBULE NEB SCH ×3 (06:39→20:34)
[2021-03-06] MEDS: MUCOMYST (RESPIRATORY USE ONLY) NEB SCH ×3 (06:39→20:34)
[2021-03-06] MEDS: THIAMINE HCL INJ IVP SCH ×2 (08:02→20:22)
[2021-03-06] MEDS: MILK OF MAGNESIA PO SCH ×2 (08:02→20:22)
[2021-03-06] MEDS: ZyrTEC TAB 10 MG PO SCH (08:03)
[2021-03-06] MEDS: ZINC SULFATE PO SCH (08:03)
[2021-03-06] MEDS: VITAMIN D3 125 mcg (5,000 UNITS) PO SCH (08:03)
[2021-03-06] MEDS: ROBITUSSIN DM PO PRN (08:03)
[2021-03-06] MEDS: COLACE CAP 100 MG PO SCH ×2 (08:03→20:25)
[2021-03-06] MEDS: FLUVOXAMINE MALEATE PO SCH ×2 (08:03→20:21)
[2021-03-06] MEDS: PEPCID TAB 40 MG PO SCH ×2 (08:04→20:21)
[2021-03-06] MEDS: LOVENOX INJ 100 MG SYR SC SCH ×2 (08:04→20:20)
[2021-03-06] MEDS: PROTONIX TAB 40 MG PO SCH ×2 (08:04→20:21)
--- NOTE | 2021-03-06 08:07 | RAD ---
HISTORYSOBSTUDYCHEST, 1 [id number] opacity in the left and right lung appears diffuse today but has a patchy distribution on the CTA chest 02/23/2021. Findings are compatible with pneumonia. Findings may have progressed slightly since yesterday, particularly in the right lung base.No pleural effusion or pneumothorax.The heart size is magnified.Bones are unremarkable.EKG leads are noted.IMPRESSION1. Bronchopneumonia, slightly progressedElectronically signed by: Conner Ortiz (Mar 06, 2021 08:05:03)
[2021-03-06] MEDS: PULMICORT NEB TX 0.5 MG NEB SCH ×2 (09:30→20:34)
--- NOTE | 2021-03-06 17:24 | PCM.PROG ---
Progress Note - Progress Note for Day of Date of Exam: 03/06/21 - Subjective Subjective: MS. SANDERS WAS ADMITTED FOR TREATMENT OF COVID PNEUMONIA AND HYPOXIA. TODAY, SHE IS ALERT AND ORIENTED, LYING IN THE BED ON MORNING ROUNDS. SHE IS CURRENTLY UTILIZING HEATED HIGH FLOW OXYGEN WITH FI02 AT 88%. SHE USED THE BIPAP LAST NIGHT. SHE REPORTS SLIGHT IMPROVEMENT SINCE WE SAW HER LAST WEEK. HER SATURATIONS HAVE BEEN 89-99% THIS MORNING AND THROUGHOUT THE NIGHT. ON EXAMINATION, HEART IS REGULAR IN RATE AND RHYTHM. BILATERAL LUNGS ARE NOTED WITH WHEEZING THROUGHOUT. ABDOMEN IS ROUND, SOFT, AND NON-TENDER WITH NORMAL BOWEL SOUNDS NOTED IN ALL QUADRANTS. HIS VITALS THIS MORNING ARE: 98 .2-63-24-96%-139/67. LABS WERE OBTAINED. ABNORMAL LAB VALUES INCLUDE THE FOLLOWING: WBC 17.7, HGB 11.0, HCT 32.3, D-DIMER 2.20, CHLORIDE 109, GLUCOSE 129, CALCIUM 7.9, CRP 3.80, TOTAL PROTEIN 5.0, ALBUMIN 2.1. ABG REVEALED: PH 7.480, PC02 39, P02 165, HC03 29, 02 SAT 100, BASE EXCESS 5.2, A-A GRADIENT 250, FI02 65. A CHEST XRAY WAS OBTAINED AND REVEALED: 1. Bronchopneumonia, slightly progressed. SHE IS CURRENTLY RECEIVING NS AT [facility], ZOSYN 4.5G IV TID, ASCORBIC ACID 1500MG IV Q6H, ALBUTEROL NEBS QID, PULMICORT NEBS BID, IV SOLU-MEDROL 125MG Q6H, FLUVOXAMINE 50MG PO BID, CYPROHEPTADINE 8MG PO TID, LOVENOX 100MG SC Q12H, LIPITOR 80MG PO HS, TESSALON PERLES 200MG PO TID, CETIRIZINE 10MG PO DAILY, TUSSIONEX Q12H PRN, MORPHINE SULFATE 2MG IV Q6H PRN, PEPCID 40MG PO BID, ROBITUSSIN DM 10ML PO QID PRN, HUMULIN R SLIDING SCALE, SINGULAIR 10MG PO HS, PROTONIX 40MG PO BID, MILK OF MAGNESIA 30ML PO BID, COLACE 100MG PO BID, THIAMINE 200MG IV BID, IV MORHPINE PRN, XANAX 0.5MG BID PRN, AND ZINC SULFATE 220MG PO BID. WE DISCUSSED WITH PATIENT THE IMPORTANCE OF GETTING OUT OF BED TO CHAIR AND MOVING AROUND. SHE VERBALIZED UNDERSTANDING. OTHERWISE, WE WILL CONTINUE WITH CURRENT PLAN OF CARE TODAY AND ATTEMPT TO WEAN DOWN OXYGEN SHE TOLERATES IT. WE WILL FOLLOW UP WITH AM LABS, CHEST XRAY, ABG, AND CONTINUE TO MONITOR. TIME SPENT ON CLINICAL ASSESSMENT, REVIEWING LABS AND IMAGING, DECISION MAKING, AND DOCUMENTATION GREATER THAN 45 MINUTES. - Past Medical Family Social History Past Med/Fam/Surg Hx: No changes since H&P Allergies: Allergies prednisone Adverse Reaction (Verified 02/23/21 13:08) anxiety, mouth ulcer high doses - Review of Systems ROS: No change since H&P - Vital Signs and I&O's Vital Signs: Temperature 98.4 F Pulse Rate [Left Brachial] 75 Pulse Rate 56 Respiratory Rate 24 Blood Pressure [Left Arm] 123/68 Blood Pressure 161/72 O2 Sat by Pulse Oximetry 93 Intake and Output: Intake & Output 03/04/21 03/05/21 03/06/21 03/07/21 11:59 11:59 11:59 11:59 Intake Total 2466 / 2466 2420 / 2420 1967 1182 / 1182 Balance 2466 / 2466 2420 / 2420 1967 1182 / 1182 - Physical Exam Oriented: Normal Eyes: Normal Ear: Normal Nose: Normal Throat: Normal Respiratory: Generalized, Diminished, Wheezes Cardiovascular: Normal : Normal Auscultation: Bowel Sounds: Normal Palpation: Normal Tenderness: Normal Skin: Normal Musculoskeletal: Normal Psychiatric: Normal Mood Description: Calm Affect: Normal Speech Pattern: Clear, Appropriate - Laboratory and Diagnostics Result Diagrams: 03/06/21 03:50 03/06/21 03:50 Labs: 02/23/21 21:33 Blood Blood Culture - Final 02/23/21 18:39 Blood Blood Culture - Final Laboratory WBC 17.7 X10^3/uL (3.6-10.0) H 03/06/21 03:50 RBC 3.62 X10^6/uL (3.5-5.4) 03/06/21 03:50 Hgb 11.0 g/dL (12.0-16.0) L 03/06/21 03:50 Hct 32.3 % (36.0-47.0) L 03/06/21 03:50 MCV 89.4 fL (80.0-100.0) 03/06/21 03:50 MCH 30.5 pg (27.0-34.0) 03/06/21 03:50 MCHC 34.1 g/dL (33.0-35.0) 03/06/21 03:50 RDW 13.5 % (11.6-16.5) 03/06/21 03:50 Plt Count 220 X10^3/uL (150.0-450.0) 03/06/21 03:50 Plt Count Comment Adequate (ADEQUATE) 03/06/21 03:50 MPV 10.8 fL (7.4-11.0) 03/06/21 03:50 Neut % (Auto) 90.5 % (42.0-75.0) H 03/06/21 03:50 Lymph % (Auto) 5.7 % (21.0-51.0) L 03/06/21 03:50 [place] % (Auto) 3.7 % (0.0-13.0) 03/06/21 03:50 Eos % (Auto) 0.0 % (0.9-2.9) L 03/06/21 03:50 Baso % (Auto) 0.1 % (0.2-1.0) L 03/06/21 03:50 Neut # (Auto) 16.0 x10^3/uL (2.2-4.8) H 03/06/21 03:50 Lymph # (Auto) 1.0 X10^3/uL (1.3-2.9) L 03/06/21 03:50 [place] # (Auto) 0.7 x10^3/uL (0.3-0.8) 03/06/21 03:50 Eos # (Auto) 0.0 x10^3/uL (0.0-0.2) 03/06/21 03:50 Baso # (Auto) 0.0 X10^3/uL (0.0-0.1) 03/06/21 03:50 Absolute Nucleated RBC 0.0 /100WBC 03/06/21 03:50 Total Counted 100 03/06/21 03:50 Neutrophils % (Manual) 91 % (39-76) H 03/06/21 03:50 Band Neutrophils % 2 % (0-10) 03/02/21 05:09 Lymphocytes % (Manual) 6 % (13-43) L 03/06/21 03:50 Monocytes % (Manual) 3 % (4-9) L 03/06/21 03:50 Myelocytes % 1 02/26/21 05:45 Plt Morphology Comment Normal (NORMAL) 03/06/21 03:50 RBC Morphology Normal (NORMAL) 03/06/21 03:50 D-Dimer 2.20 ug/ml (0.0-0.57) H* 03/06/21 03:50 Sample Site Lr 03/06/21 05:00 ABG pH 7.480 (7.35-7.45) H 03/06/21 05:00 ABG pCO2 39.0 mmHg (35.0-45.0) 03/06/21 05:00 ABG pO2 165.0 mmHg (80.0-100.0) H 03/06/21 05:00 ABG HCO3 29.0 mmol/L (22-26) H 03/06/21 05:00 ABG O2 Saturation 100.0 % (90-100) 03/06/21 05:00 ABG Base Excess 5.2 mmol/L (-2.0-2.0) H 03/06/21 05:00 Yuval Test Pos 03/06/21 05:00 A-a Gradient 250.0 mmHg 03/06/21 05:00 FiO2 65.0 03/06/21 05:00 Blood Gas Comments Jacy well 03/06/21 05:00 Sodium 143 mmol/L (136-145) 03/06/21 03:50 Corrected Sodium 144 mmol/L (136-145) 03/06/21 03:50 Potassium 3.5 mmol/L (3.5-5.1) 03/06/21 03:50 Chloride 109 mmol/L (98-107) H 03/06/21 03:50 Carbon Dioxide 28.0 mmol/L (21-32) 03/06/21 03:50 BUN 16 mg/dL (7-18) 03/06/21 03:50 Creatinine 0.63 mg/dL (0.55-1.02) 03/06/21 03:50 Est GFR (MDRD) Af Amer > 60 (>60) 03/06/21 03:50 Est GFR (MDRD) Non-Af > 60 (>60) 03/06/21 03:50 Glucose 129 mg/dL (65-99) H 03/06/21 03:50 POC Glucose (mg/dL) 139 mg/dL (65-99) H 03/03/21 21:08 Lactic Acid 1.1 mmol/L (0.4-2.0) 02/23/21 18:39 Calcium 7.4 mg/dL (8.5-10.1) L 03/06/21 03:50 Corrected Calcium 8.9 mg/dL (8.5-10.1) 03/06/21 03:50 Magnesium 2.2 mg/dL (1.7-2.9) 03/06/21 03:50 Ferritin 221 ng/mL (8-252) 03/05/21 04:20 Total Bilirubin 0.40 mg/dL (0.2-1.0) 03/06/21 03:50 AST 25 Units/L (15-37) 03/06/21 03:50 ALT 32 Units/L (12-78) 03/06/21 03:50 Alkaline Phosphatase 78 Units/L (46-116) 03/06/21 03:50 Creatine Kinase 490 Units/L (26-192) H 02/23/21 21:33 CK-MB (CK-2) < 1.0 ng/mL (0-4.0) 02/23/21 21:33 CK/CKMB % Calc 0.2 % (<4) 02/23/21 21:33 Troponin I < 0.02 ng/mL (0-1.5) 02/23/21 21:33 C-Reactive Protein 3.80 mg/L (0-3.0) H 03/06/21 03:50 B-Natriuretic Peptide 99.6 pg/mL (0-79) H 03/05/21 04:20 Total Protein 5.0 g/dL (6.4-8.2) L 03/06/21 03:50 Albumin 2.1 g/dL (3.4-5.0) L 03/06/21 03:50 Globulin 2.9 g/dL (2.5-4.5) 03/06/21 03:50 Albumin/Globulin Ratio 0.7 Ratio (1.1-2.1) L 03/06/21 03:50 Specimen Type Catherized urine 02/24/21 09:08 Urine Color Yellow (YELLOW) 02/24/21 09:08 Urine Appearance Clear (CLEAR) 02/24/21 09:08 Urine pH 6.0 (5.0 - 8.0) 02/24/21 09:08 Ur Specific [place] 1.015 (1.000-1.030) 02/24/21 09:08 Urine Protein 2+ (NEGATIVE) 02/24/21 09:08 Urine Glucose (UA) Negative (NEGATIVE) 02/24/21 09:08 Urine Ketones 4+ (NEGATIVE) 02/24/21 09:08 Urine Occult Blood Negative (NEGATIVE) 02/24/21 09:08 Urine Nitrite Negative (NEGATIVE) 02/24/21 09:08 Urine Bilirubin Negative (NEGATIVE) 02/24/21 09:08 Urine Urobilinogen Normal (NORMAL) 02/24/21 09:08 Ur Leukocyte Esterase Negative (NEGATIVE) 02/24/21 09:08 Urine RBC 3-5 /HPF (0-3) A 02/24/21 09:08 Urine WBC 3-5 /HPF (0-5) 02/24/21 09:08 Ur Squamous Epith Cells Rare /HPF (NEGATIVE) 02/24/21 09:08 Urine Bacteria Negative /HPF (NEGATIVE) 02/24/21 09:08 Urine Mucus Few /HPF (NEGATIVE) 02/24/21 09:08 Ur Culture Indicated? No/not indicated 02/24/21 09:08 SARS CoV-2 RNA Rapid PHILLIP Positive (NEGATIVE) A 02/23/21 14:05 - Plan (1) Pneumonia due to COVID-19 virus Status: Acute Plan: NS AT [facility], ZOSYN 4.5G IV TID, ASCORBIC ACID 1500MG IV Q6H, ALBUTEROL NEBS QID, PULMICORT NEBS BID, IV SOLU-MEDROL 125MG Q6H, FLUVOXAMINE 50MG PO BID, CYPROHEPTADINE 8MG PO TID, LOVENOX 100MG SC Q12H, LIPITOR 80MG PO HS, TESSALON PERLES 200MG PO TID, CETIRIZINE 10MG PO DAILY, TUSSIONEX Q12H PRN, MORPHINE SULFATE 2MG IV Q6H PRN, PEPCID 40MG PO BID, ROBITUSSIN DM 10ML PO QID PRN, HUMULIN R SLIDING SCALE, SINGULAIR 10MG PO HS, PROTONIX 40MG PO BID, MILK OF MAGNESIA 30ML PO BID, COLACE 100MG PO BID, THIAMINE 200MG IV BID, IV MORHPINE PRN, XANAX 0.5MG BID PRN, AND ZINC SULFATE 220MG PO BID. (2) Hypoxia Status: Acute
[2021-03-06] MEDS: LIPITOR TAB 80 MG PO SCH (20:21)
[2021-03-06] MEDS: SINGULAIR TAB 10 MG PO SCH (20:21)
[2021-03-06] MEDS ORDERED: MAALOX or MYLANTA PO PRN (20:24)
[2021-03-06] MEDS ORDERED: MAALOX or MYLANTA ONE (20:25)
[2021-03-06] MEDS: VISTARIL PO PRN (22:35)
[2021-03-07] MEDS: ASCORBIC ACID INJ MULTI-DOSE VIAL 1,500 MG in NS 50 ML IV 50 ML IV SCH ×4 (02:35→20:35)
[2021-03-07] MEDS: SOLU-Medrol 125 MG VIAL IVP SCH ×4 (02:35→20:33)
[2021-03-07 04:59] LABS: BASOPHILS % (AUTO) 0.1 % (0.2-1.0); HEMATOCRIT 33.3 % (36.0-47.0); HEMOGLOBIN 11.3 g/dL (12.0-16.0); LYMPHOCYTES # (AUTO) 1.1 X10^3/uL (1.3-2.9); LYMPHOCYTES % (AUTO) 4.7 % (21.0-51.0); MEAN CORPUSCULAR HGB CONC 34.1 g/dL (33.0-35.0); MEAN CORPUSCULAR VOLUME 87.8 fL (80.0-100.0); MEAN PLATELET VOLUME 10.9 fL (7.4-11.0); MONOCYTES # (AUTO) 1.1 x10^3/uL (0.3-0.8); MONOCYTES % (AUTO) 4.8 % (0.0-13.0); NEUTROPHILS # (AUTO) 20.6 x10^3/uL (2.2-4.8); NEUTROPHILS % (AUTO) 90.4 % (42.0-75.0); PLATELET COUNT 210 X10^3/uL (150.0-450.0); RED BLOOD COUNT 3.79 X10^6/uL (3.5-5.4); RED CELL DISTRIBUTION WIDTH 13.7 % (11.6-16.5); WHITE BLOOD COUNT 22.8 X10^3/uL (3.6-10.0)
[2021-03-07] MEDS: MUCOMYST (RESPIRATORY USE ONLY) NEB SCH ×3 (05:00→20:50)
[2021-03-07] MEDS: ACCUNEB 1.25 MG NEBULE NEB SCH ×3 (05:00→20:50)
[2021-03-07 05:01] LABS: ALANINE AMINOTRANSFERASE 33 Units/L (12-78); ALBUMIN 2.1 g/dL (3.4-5.0); ALKALINE PHOSPHATASE 70 Units/L (46-116); ASPARTATE AMINO TRANSFERASE 25 Units/L (15-37); BLOOD UREA NITROGEN 14 mg/dL (7-18); CALCIUM 7.2 mg/dL (8.5-10.1); CHLORIDE 109 mmol/L (98-107); COR CA(FOR HYPOALB) 8.7 mg/dL (8.5-10.1); COR NA(FOR HYPERGLY) 143 mmol/L (136-145); CREATININE 0.65 mg/dL (0.55-1.02); SODIUM 143 mmol/L (136-145); TOTAL PROTEIN 4.8 g/dL (6.4-8.2); eGFR NON BLACK RACES > 60 (>60)
[2021-03-07] MEDS ORDERED: NS 1/2 1000 ML IV 1,000 ML IV ONE (05:02)
[2021-03-07] MEDS: TESSALON PERLES PO SCH ×3 (05:14→21:48)
[2021-03-07] MEDS: ZOSYN VIAL 4.5 GRAMS 4.5 G in NS 100 ML IV + SPIKE MINIBAG* 100 ML IV SCH ×3 (05:15→21:48)
[2021-03-07] MEDS: NS 1/2 1000 ML IV 1,000 ML IV SCH (05:16)
[2021-03-07 05:22] LABS: ABG BASE EXCESS 4.6 mmol/L (-2.0-2.0); ABG HCO3 28.3 mmol/L (22-26)
[2021-03-07 05:23] LABS: ABG ALLEN TEST POS
[2021-03-07 06:14] LABS: BAND NEUTROPHILS % 2 % (0-10); PLATELET MORPHOLOGY COMMENT NORMAL (NORMAL)
[2021-03-07] MEDS: K-DUR TAB 20 MEQ PO PRN (06:33)
[2021-03-07] MEDS: COLACE CAP 100 MG PO SCH ×2 (08:09→20:32)
[2021-03-07] MEDS: FLUVOXAMINE MALEATE PO SCH ×2 (08:10→20:32)
[2021-03-07] MEDS: LOVENOX INJ 100 MG SYR SC SCH ×2 (08:10→20:34)
[2021-03-07] MEDS: PEPCID TAB 40 MG PO SCH ×2 (08:13→20:32)
[2021-03-07] MEDS: ZyrTEC TAB 10 MG PO SCH (08:14)
[2021-03-07] MEDS: ZINC SULFATE PO SCH (08:14)
[2021-03-07] MEDS: PROTONIX TAB 40 MG PO SCH ×2 (08:14→20:32)
[2021-03-07] MEDS: THIAMINE HCL INJ IVP SCH ×2 (08:15→20:33)
[2021-03-07] MEDS: VITAMIN D3 125 mcg (5,000 UNITS) PO SCH (08:15)
--- NOTE | 2021-03-07 08:18 | RAD ---
HISTORYSOBSTUDYCHEST, 1 [id number]/08/2021FINDINGSAbnormal opacity in the left and right lung had a lobular pattern on the CT chest 02/23/2021 consistent with bronchopneumonia. There may be a slight improvement since yesterday.No pleural effusion or pneumothorax.The heart size is magnified.Bones are unremarkable.EKG leads are noted.IMPRESSION1. Improved bronchopneumoniaElectronically signed by: Conner Ortiz (Mar 07, 2021 08:16:26)
[2021-03-07] MEDS: PULMICORT NEB TX 0.5 MG NEB SCH ×2 (09:04→20:50)
[2021-03-07] MEDS: MILK OF MAGNESIA PO SCH ×2 (09:09→20:34)
[2021-03-07 13:37] LABS: CRYPTOSPORIDIUM PARVUM ANTIGEN NEGATIVE (NEGATIVE); GIARDIA LAMBLIA ANTIGEN NEGATIVE (NEGATIVE)
[2021-03-07] MEDS: NYSTATIN SUSP MT SCH ×2 (16:09→20:33)
[2021-03-07] MEDS ORDERED: NYSTATIN SUSP PO SCH (17:00)
--- NOTE | 2021-03-07 19:29 | PCM.PROG ---
Progress Note - Progress Note for Day of Date of Exam: 03/07/21 - Subjective Subjective: MS. SANDERS WAS ADMITTED FOR TREATMENT OF COVID PNEUMONIA AND HYPOXIA. TODAY, SHE IS ALERT AND ORIENTED, LYING IN THE BED ON MORNING ROUNDS. SHE IS CURRENTLY UTILIZING HEATED HIGH FLOW OXYGEN WITH FI02 AT 88%. SHE USED THE BIPAP LAST NIGHT. SHE REPORTS SLIGHT IMPROVEMENT IN SYMPTOMS SINCE YESTERDAY. HER SATURATIONS HAVE BEEN 88-95% THIS MORNING AND THROUGHOUT THE NIGHT. ON EXAMINATION, HEART IS REGULAR IN RATE AND RHYTHM. BILATERAL LUNGS ARE NOTED WITH WHEEZING THROUGHOUT. ABDOMEN IS ROUND, SOFT, AND NON-TENDER WITH NORMAL BOWEL SOUNDS NOTED IN ALL QUADRANTS. HIS VITALS THIS MORNING ARE: 9 8.2-64-25-93%-139/70. LABS WERE OBTAINED. ABNORMAL LAB VALUES INCLUDE THE FOLLOWING: WBC 22.8, HGB 11.3, HCT 33.3, D-DIMER 2.25, POTASSIUM 3.3, CHLORIDE 109, GLUCOSE 113, CALCIUM 7.2, TOTAL PROTEIN 4.8, ALBUMIN 2.1. ABG REVEALED: PH 7.480, PC02 38, P02 123, HC03 28.3, 02 SAT 99, BASE EXCESS 4.6, A-A GRADIENT 293, FI02 65. A CHEST XRAY WAS OBTAINED AND REVEALED: 1. Improved bronchopneumonia. SHE IS CURRENTLY RECEIVING NS AT [facility], ZOSYN 4.5G IV TID, ASCORBIC ACID 1500MG IV Q6H, ALBUTEROL NEBS QID, PULMICORT NEBS BID, IV SOLU- MEDROL 125MG Q6H, FLUVOXAMINE 50MG PO BID, CYPROHEPTADINE 8MG PO TID, LOVENOX 100MG SC Q12H, LIPITOR 80MG PO HS, TESSALON PERLES 200MG PO TID, CETIRIZINE 10MG PO DAILY, TUSSIONEX Q12H PRN, MORPHINE SULFATE 2MG IV Q6H PRN, PEPCID 40MG PO BID, ROBITUSSIN DM 10ML PO QID PRN, HUMULIN R SLIDING SCALE, SINGULAIR 10MG PO HS, PROTONIX 40MG PO BID, MILK OF MAGNESIA 30ML PO BID, COLACE 100MG PO BID, THIAMINE 200MG IV BID, IV MORHPINE PRN, XANAX 0.5MG BID PRN, AND ZINC SULFATE 220MG PO BID. WE DISCUSSED WITH PATIENT THE IMPORTANCE OF GETTING OUT OF BED TO CHAIR AND MOVING AROUND. SHE VERBALIZED UNDERSTANDING. TODAY, WE WILL ADD NYSTATIN SUSPENSION 5ML PO QID. OTHERWISE, WE WILL CONTINUE WITH CURRENT PLAN OF CARE TODAY AND ATTEMPT TO WEAN DOWN OXYGEN SHE TOLERATES IT. WE WILL FOLLOW UP WITH AM LABS, CHEST XRAY, ABG, AND CONTINUE TO MONITOR. TIME SPENT ON CLINICAL ASSESSMENT, REVIEWING LABS AND IMAGING, DECISION MAKING, AND DOCUMENTATION GREATER THAN 45 MINUTES. - Past Medical Family Social History Past Med/Fam/Surg Hx: No changes since H&P Allergies: Allergies prednisone Adverse Reaction (Verified 02/23/21 13:08) anxiety, mouth ulcer high doses - Review of Systems ROS: No change since H&P - Vital Signs and I&O's Vital Signs: Temperature 98.6 F Pulse Rate [Left Brachial] 75 Pulse Rate 64 Respiratory Rate 24 Blood Pressure [Left Arm] 123/68 Blood Pressure 132/62 O2 Sat by Pulse Oximetry 86 Intake and Output: Intake & Output 03/05/21 03/06/21 03/07/21 03/08/21 11:59 11:59 11:59 11:59 Intake Total 2420 / 2420 1967 2379 / 2379 600 / 600 Balance 2420 / 2420 1967 2379 / 2379 600 / 600 - Physical Exam Oriented: Normal Eyes: Normal Ear: Normal Nose: Normal Throat: Normal Respiratory: Generalized, Diminished, Wheezes Cardiovascular: Normal : Normal Auscultation: Bowel Sounds: Normal Palpation: Normal Tenderness: Normal Skin: Normal Musculoskeletal: Normal Psychiatric: Normal Mood Description: Calm Affect: Normal Speech Pattern: Clear, Appropriate - Laboratory and Diagnostics Result Diagrams: 03/07/21 03:40 03/07/21 09:33 Labs: 03/07/21 11:45 Stool - Final 02/23/21 21:33 Blood Blood Culture - Final 02/23/21 18:39 Blood Blood Culture - Final Laboratory WBC 22.8 X10^3/uL (3.6-10.0) H 03/07/21 03:40 RBC 3.79 X10^6/uL (3.5-5.4) 03/07/21 03:40 Hgb 11.3 g/dL (12.0-16.0) L 03/07/21 03:40 Hct 33.3 % (36.0-47.0) L 03/07/21 03:40 MCV 87.8 fL (80.0-100.0) 03/07/21 03:40 MCH 30.0 pg (27.0-34.0) 03/07/21 03:40 MCHC 34.1 g/dL (33.0-35.0) 03/07/21 03:40 RDW 13.7 % (11.6-16.5) 03/07/21 03:40 Plt Count 210 X10^3/uL (150.0-450.0) 03/07/21 03:40 Plt Count Comment Adequate (ADEQUATE) 03/07/21 03:40 MPV 10.9 fL (7.4-11.0) 03/07/21 03:40 Neut % (Auto) 90.4 % (42.0-75.0) H 03/07/21 03:40 Lymph % (Auto) 4.7 % (21.0-51.0) L 03/07/21 03:40 [place] % (Auto) 4.8 % (0.0-13.0) 03/07/21 03:40 Eos % (Auto) 0.0 % (0.9-2.9) L 03/07/21 03:40 Baso % (Auto) 0.1 % (0.2-1.0) L 03/07/21 03:40 Neut # (Auto) 20.6 x10^3/uL (2.2-4.8) H 03/07/21 03:40 Lymph # (Auto) 1.1 X10^3/uL (1.3-2.9) L 03/07/21 03:40 [place] # (Auto) 1.1 x10^3/uL (0.3-0.8) H 03/07/21 03:40 Eos # (Auto) 0.0 x10^3/uL (0.0-0.2) 03/07/21 03:40 Baso # (Auto) 0.0 X10^3/uL (0.0-0.1) 03/07/21 03:40 Absolute Nucleated RBC 0.0 /100WBC 03/07/21 03:40 Total Counted 100 03/07/21 03:40 Neutrophils % (Manual) 92 % (39-76) H 03/07/21 03:40 Band Neutrophils % 2 % (0-10) 03/07/21 03:40 Lymphocytes % (Manual) 4 % (13-43) L 03/07/21 03:40 Monocytes % (Manual) 2 % (4-9) L 03/07/21 03:40 Myelocytes % 1 02/26/21 05:45 Plt Morphology Comment Normal (NORMAL) 03/07/21 03:40 RBC Morphology Normal (NORMAL) 03/07/21 03:40 D-Dimer 2.25 ug/ml (0.0-0.57) H* 03/07/21 03:40 Sample Site Lr 03/07/21 05:00 ABG pH 7.480 (7.35-7.45) H 03/07/21 05:00 ABG pCO2 38.0 mmHg (35.0-45.0) 03/07/21 05:00 ABG pO2 123.0 mmHg (80.0-100.0) H 03/07/21 05:00 ABG HCO3 28.3 mmol/L (22-26) H 03/07/21 05:00 ABG O2 Saturation 99.0 % (90-100) 03/07/21 05:00 ABG Base Excess 4.6 mmol/L (-2.0-2.0) H 03/07/21 05:00 Yuval Test Pos 03/07/21 05:00 A-a Gradient 293.0 mmHg 03/07/21 05:00 FiO2 65.0 03/07/21 05:00 Blood Gas Comments Jacy well sw 03/07/21 05:00 Sodium 143 mmol/L (136-145) 03/07/21 03:40 Corrected Sodium 143 mmol/L (136-145) 03/07/21 03:40 Potassium 4.2 mmol/L (3.5-5.1) 03/07/21 09:33 Chloride 109 mmol/L (98-107) H 03/07/21 03:40 Carbon Dioxide 30.0 mmol/L (21-32) 03/07/21 03:40 BUN 14 mg/dL (7-18) 03/07/21 03:40 Creatinine 0.65 mg/dL (0.55-1.02) 03/07/21 03:40 Est GFR (MDRD) Af Amer > 60 (>60) 03/07/21 03:40 Est GFR (MDRD) Non-Af > 60 (>60) 03/07/21 03:40 Glucose 113 mg/dL (65-99) H 03/07/21 03:40 POC Glucose (mg/dL) 139 mg/dL (65-99) H 03/03/21 21:08 Lactic Acid 1.1 mmol/L (0.4-2.0) 02/23/21 18:39 Calcium 7.2 mg/dL (8.5-10.1) L 03/07/21 03:40 Corrected Calcium 8.7 mg/dL (8.5-10.1) 03/07/21 03:40 Magnesium 2.2 mg/dL (1.7-2.9) 03/06/21 03:50 Ferritin 221 ng/mL (8-252) 03/05/21 04:20 Total Bilirubin 0.50 mg/dL (0.2-1.0) 03/07/21 03:40 AST 25 Units/L (15-37) 03/07/21 03:40 ALT 33 Units/L (12-78) 03/07/21 03:40 Alkaline Phosphatase 70 Units/L (46-116) 03/07/21 03:40 Creatine Kinase 490 Units/L (26-192) H 02/23/21 21:33 CK-MB (CK-2) < 1.0 ng/mL (0-4.0) 02/23/21 21:33 CK/CKMB % Calc 0.2 % (<4) 02/23/21 21:33 Troponin I < 0.02 ng/mL (0-1.5) 02/23/21 21:33 C-Reactive Protein 2.30 mg/L (0-3.0) 03/07/21 03:40 B-Natriuretic Peptide 99.6 pg/mL (0-79) H 03/05/21 04:20 Total Protein 4.8 g/dL (6.4-8.2) L 03/07/21 03:40 Albumin 2.1 g/dL (3.4-5.0) L 03/07/21 03:40 Globulin 2.7 g/dL (2.5-4.5) 03/07/21 03:40 Albumin/Globulin Ratio 0.8 Ratio (1.1-2.1) L 03/07/21 03:40 Specimen Type Catherized urine 02/24/21 09:08 Urine Color Yellow (YELLOW) 02/24/21 09:08 Urine Appearance Clear (CLEAR) 02/24/21 09:08 Urine pH 6.0 (5.0 - 8.0) 02/24/21 09:08 Ur Specific [place] 1.015 (1.000-1.030) 02/24/21 09:08 Urine Protein 2+ (NEGATIVE) 02/24/21 09:08 Urine Glucose (UA) Negative (NEGATIVE) 02/24/21 09:08 Urine Ketones 4+ (NEGATIVE) 02/24/21 09:08 Urine Occult Blood Negative (NEGATIVE) 02/24/21 09:08 Urine Nitrite Negative (NEGATIVE) 02/24/21 09:08 Urine Bilirubin Negative (NEGATIVE) 02/24/21 09:08 Urine Urobilinogen Normal (NORMAL) 02/24/21 09:08 Ur Leukocyte Esterase Negative (NEGATIVE) 02/24/21 09:08 Urine RBC 3-5 /HPF (0-3) A 02/24/21 09:08 Urine WBC 3-5 /HPF (0-5) 02/24/21 09:08 Ur Squamous Epith Cells Rare /HPF (NEGATIVE) 02/24/21 09:08 Urine Bacteria Negative /HPF (NEGATIVE) 02/24/21 09:08 Urine Mucus Few /HPF (NEGATIVE) 02/24/21 09:08 Ur Culture Indicated? No/not indicated 02/24/21 09:08 Stool Description Fob tube 03/07/21 11:45 Stool Description Liquid brown 40g 03/07/21 11:45 Stl Occult Blood (IFOB) Negative (NEGATIVE) 03/07/21 11:45 Stool for White Cells Positive (NEGATIVE) A 03/07/21 11:45 Stl C. diff Tox B Gene Negative (NEGATIVE) 03/07/21 11:45 Stl C. diff [id number] Presumptive negative (NEGATIVE) 03/07/21 11:45 Cryptosporid parvum Ag Negative (NEGATIVE) 03/07/21 11:45 Giardia lamblia Ag Negative (NEGATIVE) 03/07/21 11:45 SARS CoV-2 RNA Rapid PHILLIP Positive (NEGATIVE) A 02/23/21 14:05 - Plan (1) Pneumonia due to COVID-19 virus Status: Acute Plan: NS AT [facility], ZOSYN 4.5G IV TID, ASCORBIC ACID 1500MG IV Q6H, ALBUTEROL NEBS QID, PULMICORT NEBS BID, IV SOLU-MEDROL 125MG Q6H, FLUVOXAMINE 50MG PO BID, CYPROHEPTADINE 8MG PO TID, LOVENOX 100MG SC Q12H, LIPITOR 80MG PO HS, TESSALON PERLES 200MG PO TID, CETIRIZINE 10MG PO DAILY, TUSSIONEX Q12H PRN, MORPHINE SULFATE 2MG IV Q6H PRN, PEPCID 40MG PO BID, ROBITUSSIN DM 10ML PO QID PRN, HUMULIN R SLIDING SCALE, SINGULAIR 10MG PO HS, PROTONIX 40MG PO BID, MILK OF MAGNESIA 30ML PO BID, COLACE 100MG PO BID, THIAMINE 200MG IV BID, IV MORHPINE PRN, XANAX 0.5MG BID PRN, AND ZINC SULFATE 220MG PO BID. (2) Hypoxia Status: Acute
[2021-03-07] MEDS: LIPITOR TAB 80 MG PO SCH (20:32)
[2021-03-07] MEDS: SINGULAIR TAB 10 MG PO SCH (20:33)
[2021-03-08] MEDS: SOLU-Medrol 125 MG VIAL IVP SCH ×4 (02:21→20:28)
[2021-03-08] MEDS: ASCORBIC ACID INJ MULTI-DOSE VIAL 1,500 MG in NS 50 ML IV 50 ML IV SCH ×4 (02:21→20:27)
[2021-03-08 05:07] LABS: ABG BASE EXCESS 4.2 mmol/L (-2.0-2.0); ABG HCO3 27.3 mmol/L (22-26)
[2021-03-08 05:09] LABS: ABG ALLEN TEST POS
[2021-03-08] MEDS: ZOSYN VIAL 4.5 GRAMS 4.5 G in NS 100 ML IV + SPIKE MINIBAG* 100 ML IV SCH ×3 (05:33→21:54)
[2021-03-08] MEDS: TESSALON PERLES PO SCH ×3 (05:33→21:53)
[2021-03-08 06:16] LABS: BASOPHILS % (AUTO) 0.1 % (0.2-1.0); EOSINOPHILS % (AUTO) 0.1 % (0.9-2.9); HEMATOCRIT 33.8 % (36.0-47.0); HEMOGLOBIN 11.4 g/dL (12.0-16.0); LYMPHOCYTES # (AUTO) 0.9 X10^3/uL (1.3-2.9); LYMPHOCYTES % (AUTO) 3.8 % (21.0-51.0); MEAN CORPUSCULAR HEMOGLOBIN 30.1 pg (27.0-34.0); MEAN CORPUSCULAR HGB CONC 33.8 g/dL (33.0-35.0); MEAN CORPUSCULAR VOLUME 89.2 fL (80.0-100.0); MEAN PLATELET VOLUME 10.4 fL (7.4-11.0); MONOCYTES % (AUTO) 4.5 % (0.0-13.0); NEUTROPHILS # (AUTO) 20.8 x10^3/uL (2.2-4.8); NEUTROPHILS % (AUTO) 91.5 % (42.0-75.0); PLATELET COUNT 188 X10^3/uL (150.0-450.0); RED BLOOD COUNT 3.79 X10^6/uL (3.5-5.4); RED CELL DISTRIBUTION WIDTH 13.6 % (11.6-16.5); WHITE BLOOD COUNT 22.7 X10^3/uL (3.6-10.0)
[2021-03-08 06:29] LABS: ALANINE AMINOTRANSFERASE 42 Units/L (12-78); ALBUMIN 2.3 g/dL (3.4-5.0); ALKALINE PHOSPHATASE 57 Units/L (46-116); ASPARTATE AMINO TRANSFERASE 25 Units/L (15-37); BLOOD UREA NITROGEN 12 mg/dL (7-18); CALCIUM 7.3 mg/dL (8.5-10.1); CARBON DIOXIDE 28.6 mmol/L (21-32); CHLORIDE 108 mmol/L (98-107); COR CA(FOR HYPOALB) 8.7 mg/dL (8.5-10.1); COR NA(FOR HYPERGLY) 143 mmol/L (136-145); CREATININE 0.77 mg/dL (0.55-1.02); SODIUM 143 mmol/L (136-145); TOTAL PROTEIN 5.1 g/dL (6.4-8.2); eGFR NON BLACK RACES > 60 (>60)
[2021-03-08] MEDS: ACCUNEB 1.25 MG NEBULE NEB SCH ×3 (06:39→20:50)
[2021-03-08] MEDS: MUCOMYST (RESPIRATORY USE ONLY) NEB SCH ×3 (06:39→20:50)
[2021-03-08 07:15] LABS: PLATELET MORPHOLOGY COMMENT NORMAL (NORMAL)
--- NOTE | 2021-03-08 08:05 | RAD ---
HISTORYSOBSTUDYCHEST, 1 [id number]/2021FINDINGSAbnormal opacity in the left and right lung had a patchy distribution on CT chest 02/23/2021 consistent with bronchopneumonia. No change from yesterday.Lungs are not well inflated. But there is no pleural effusion or pneumothorax.The heart size is magnified.Bones are unremarkable.IMPRESSION1. Unchanged pneumoniaElectronically signed by: Conner Ortiz (Mar 08, 2021 08:02:57)
[2021-03-08] MEDS: PULMICORT NEB TX 0.5 MG NEB SCH ×2 (08:40→20:50)
[2021-03-08] MEDS: NS 1/2 1000 ML IV 1,000 ML IV SCH ×3 (10:01→20:42)
[2021-03-08] MEDS: COLACE CAP 100 MG PO SCH ×3 (10:02→20:27)
[2021-03-08] MEDS: FLUVOXAMINE MALEATE PO SCH ×2 (10:03→20:26)
[2021-03-08] MEDS: LOVENOX INJ 100 MG SYR SC SCH ×2 (10:03→20:25)
[2021-03-08] MEDS: PEPCID TAB 40 MG PO SCH ×2 (10:04→20:26)
[2021-03-08] MEDS: MILK OF MAGNESIA PO SCH ×3 (10:04→20:27)
[2021-03-08] MEDS: PROTONIX TAB 40 MG PO SCH ×2 (10:05→20:25)
[2021-03-08] MEDS: VITAMIN D3 125 mcg (5,000 UNITS) PO SCH (10:06)
[2021-03-08] MEDS: THIAMINE HCL INJ IVP SCH ×2 (10:06→20:28)
[2021-03-08] MEDS: ZyrTEC TAB 10 MG PO SCH (10:07)
[2021-03-08] MEDS: ZINC SULFATE PO SCH (10:07)
[2021-03-08] MEDS: NYSTATIN SUSP MT SCH ×4 (10:08→20:25)
[2021-03-08] MEDS: SINGULAIR TAB 10 MG PO SCH (20:26)
[2021-03-08] MEDS: LIPITOR TAB 80 MG PO SCH (20:26)
[2021-03-09] MEDS: ASCORBIC ACID INJ MULTI-DOSE VIAL 1,500 MG in NS 50 ML IV 50 ML IV SCH ×4 (02:20→20:15)
[2021-03-09] MEDS: SOLU-Medrol 125 MG VIAL IVP SCH ×4 (02:20→20:16)
[2021-03-09] MEDS: TESSALON PERLES PO SCH ×3 (05:42→21:44)
[2021-03-09] MEDS: ZOSYN VIAL 4.5 GRAMS 4.5 G in NS 100 ML IV + SPIKE MINIBAG* 100 ML IV SCH ×3 (05:43→21:45)
[2021-03-09] MEDS: MUCOMYST (RESPIRATORY USE ONLY) NEB SCH ×3 (05:59→21:30)
[2021-03-09] MEDS: ACCUNEB 1.25 MG NEBULE NEB SCH ×3 (05:59→21:30)
[2021-03-09 06:13] LABS: BASOPHILS % (AUTO) 0.2 % (0.2-1.0); HEMATOCRIT 32.8 % (36.0-47.0); HEMOGLOBIN 11.2 g/dL (12.0-16.0); LYMPHOCYTES # (AUTO) 0.8 X10^3/uL (1.3-2.9); LYMPHOCYTES % (AUTO) 4.3 % (21.0-51.0); MEAN CORPUSCULAR HEMOGLOBIN 30.1 pg (27.0-34.0); MEAN CORPUSCULAR HGB CONC 34.1 g/dL (33.0-35.0); MEAN CORPUSCULAR VOLUME 88.2 fL (80.0-100.0); MEAN PLATELET VOLUME 10.7 fL (7.4-11.0); MONOCYTES # (AUTO) 0.5 x10^3/uL (0.3-0.8); MONOCYTES % (AUTO) 2.8 % (0.0-13.0); NEUTROPHILS # (AUTO) 17.5 x10^3/uL (2.2-4.8); NEUTROPHILS % (AUTO) 92.7 % (42.0-75.0); PLATELET COUNT 190 X10^3/uL (150.0-450.0); RED BLOOD COUNT 3.72 X10^6/uL (3.5-5.4); RED CELL DISTRIBUTION WIDTH 13.7 % (11.6-16.5); WHITE BLOOD COUNT 18.9 X10^3/uL (3.6-10.0)
[2021-03-09 06:26] LABS: ALANINE AMINOTRANSFERASE 46 Units/L (12-78); ALBUMIN 2.3 g/dL (3.4-5.0); ALKALINE PHOSPHATASE 58 Units/L (46-116); ASPARTATE AMINO TRANSFERASE 25 Units/L (15-37); BLOOD UREA NITROGEN 11 mg/dL (7-18); CALCIUM 7.4 mg/dL (8.5-10.1); CARBON DIOXIDE 29.5 mmol/L (21-32); CHLORIDE 108 mmol/L (98-107); COR CA(FOR HYPOALB) 8.8 mg/dL (8.5-10.1); COR NA(FOR HYPERGLY) 144 mmol/L (136-145); CREATININE 0.73 mg/dL (0.55-1.02); SODIUM 143 mmol/L (136-145); eGFR NON BLACK RACES > 60 (>60)
--- NOTE | 2021-03-09 08:21 | RAD ---
HISTORYSOBSTUDYPortable AP [id number]/10/2021FINDINGSStable heart size. Persistent confluent bilateral airspace disease is similar in the left lung but slightly increased on the right. No pneumothorax or pleural fluid seen.IMPRESSIONPersistent bilateral pneumonia with slight apparent progression in the right lung since 1 day prior.Electronically signed by: CUBA MCGARRY (Mar 09, 2021 08:19:00)
[2021-03-09 08:36] LABS: BAND NEUTROPHILS % 2 % (0-10)
[2021-03-09 08:37] LABS: PLATELET MORPHOLOGY COMMENT NORMAL (NORMAL)
[2021-03-09] MEDS: LOVENOX INJ 100 MG SYR SC SCH ×2 (09:20→20:13)
[2021-03-09] MEDS: FLUVOXAMINE MALEATE PO SCH ×2 (09:20→20:15)
[2021-03-09] MEDS: PEPCID TAB 40 MG PO SCH ×2 (09:20→20:15)
[2021-03-09] MEDS: ZyrTEC TAB 10 MG PO SCH (09:20)
[2021-03-09] MEDS: COLACE CAP 100 MG PO SCH ×2 (09:20→20:16)
[2021-03-09] MEDS: VITAMIN D3 125 mcg (5,000 UNITS) PO SCH (09:20)
[2021-03-09] MEDS: ZINC SULFATE PO SCH (09:20)
[2021-03-09] MEDS: PROTONIX TAB 40 MG PO SCH ×2 (09:20→20:14)
[2021-03-09] MEDS: MILK OF MAGNESIA PO SCH ×2 (09:22→20:16)
[2021-03-09] MEDS: THIAMINE HCL INJ IVP SCH ×2 (09:22→20:14)
[2021-03-09] MEDS: NYSTATIN SUSP MT SCH ×4 (09:22→20:16)
[2021-03-09] MEDS: PULMICORT NEB TX 0.5 MG NEB SCH ×2 (09:50→21:30)
[2021-03-09] MEDS: K-DUR TAB 20 MEQ PO SCH ×2 (11:09→20:15)
[2021-03-09] MEDS: NS 1/2 1000 ML IV 1,000 ML IV SCH (13:05)
[2021-03-09] MEDS: LASIX IVP SCH (17:37)
[2021-03-09] MEDS: SINGULAIR TAB 10 MG PO SCH (20:14)
[2021-03-09] MEDS: LIPITOR TAB 80 MG PO SCH (20:15)
[2021-03-09] MEDS: VISTARIL PO PRN (23:02)
[2021-03-10] MEDS: NS 1/2 1000 ML IV 1,000 ML IV SCH ×3 (00:16→12:31)
[2021-03-10] MEDS: ASCORBIC ACID INJ MULTI-DOSE VIAL 1,500 MG in NS 50 ML IV 50 ML IV SCH ×4 (02:34→21:19)
[2021-03-10] MEDS: SOLU-Medrol 125 MG VIAL IVP SCH ×4 (02:34→21:21)
[2021-03-10] MEDS: ZOSYN VIAL 4.5 GRAMS 4.5 G in NS 100 ML IV + SPIKE MINIBAG* 100 ML IV SCH ×3 (05:23→21:20)
[2021-03-10] MEDS ORDERED: NS 1/2 1000 ML IV 1,000 ML IV ONE (05:33)
[2021-03-10] MEDS: TESSALON PERLES PO SCH ×3 (05:47→21:20)
[2021-03-10] MEDS: ACCUNEB 1.25 MG NEBULE NEB SCH ×3 (06:15→21:05)
[2021-03-10] MEDS: MUCOMYST (RESPIRATORY USE ONLY) NEB SCH ×2 (06:15→13:51)
[2021-03-10 06:30] LABS: ABG BASE EXCESS 5.7 mmol/L (-2.0-2.0); ABG HCO3 28.6 mmol/L (22-26)
[2021-03-10 06:32] LABS: ABG ALLEN TEST POS
[2021-03-10 06:38] LABS: BASOPHILS % (AUTO) 0.1 % (0.2-1.0); HEMATOCRIT 31.5 % (36.0-47.0); HEMOGLOBIN 10.7 g/dL (12.0-16.0); LYMPHOCYTES # (AUTO) 0.8 X10^3/uL (1.3-2.9); LYMPHOCYTES % (AUTO) 4.7 % (21.0-51.0); MEAN CORPUSCULAR HEMOGLOBIN 30.4 pg (27.0-34.0); MEAN CORPUSCULAR HGB CONC 33.9 g/dL (33.0-35.0); MEAN CORPUSCULAR VOLUME 89.6 fL (80.0-100.0); MEAN PLATELET VOLUME 10.8 fL (7.4-11.0); MONOCYTES # (AUTO) 0.6 x10^3/uL (0.3-0.8); MONOCYTES % (AUTO) 3.4 % (0.0-13.0); NEUTROPHILS # (AUTO) 15.7 x10^3/uL (2.2-4.8); NEUTROPHILS % (AUTO) 91.8 % (42.0-75.0); PLATELET COUNT 164 X10^3/uL (150.0-450.0); RED BLOOD COUNT 3.51 X10^6/uL (3.5-5.4); RED CELL DISTRIBUTION WIDTH 13.9 % (11.6-16.5); WHITE BLOOD COUNT 17.1 X10^3/uL (3.6-10.0)
[2021-03-10 06:58] LABS: ALANINE AMINOTRANSFERASE 45 Units/L (12-78); ALBUMIN 2.3 g/dL (3.4-5.0); ALKALINE PHOSPHATASE 53 Units/L (46-116); ASPARTATE AMINO TRANSFERASE 22 Units/L (15-37); BLOOD UREA NITROGEN 14 mg/dL (7-18); CALCIUM 7.6 mg/dL (8.5-10.1); CARBON DIOXIDE 28.4 mmol/L (21-32); CHLORIDE 108 mmol/L (98-107); COR NA(FOR HYPERGLY) 145 mmol/L (136-145); CREATININE 0.63 mg/dL (0.55-1.02); SODIUM 144 mmol/L (136-145); TOTAL PROTEIN 4.6 g/dL (6.4-8.2); eGFR NON BLACK RACES > 60 (>60)
--- NOTE | 2021-03-10 08:12 | RAD ---
HISTORYSOBSTUDYPortable AP [id number]/11/2021FINDINGSThere is no significant change in appearance of heart or lungs. Diffuse bilateral airspace disease is again noted without evidence for developing pneumothorax or large pleural effusion.IMPRESSIONNo change in appearance of bilateral pneumonia.Electronically signed by: CUBA MCGARRY (Mar 10, 2021 08:11:05)
[2021-03-10 08:15] LABS: BAND NEUTROPHILS % 2 % (0-10); PLATELET MORPHOLOGY COMMENT NORMAL (NORMAL)
[2021-03-10] MEDS: COLACE CAP 100 MG PO SCH ×3 (08:16→21:21)
[2021-03-10] MEDS: LOVENOX INJ 100 MG SYR SC SCH ×2 (08:18→21:21)
[2021-03-10] MEDS: MILK OF MAGNESIA PO SCH ×2 (08:18→21:21)
[2021-03-10] MEDS: PEPCID TAB 40 MG PO SCH ×2 (08:19→21:20)
[2021-03-10] MEDS: ZINC SULFATE PO SCH (08:20)
[2021-03-10] MEDS: VITAMIN D3 125 mcg (5,000 UNITS) PO SCH (08:20)
[2021-03-10] MEDS: NYSTATIN SUSP MT SCH ×4 (08:42→21:21)
[2021-03-10] MEDS: FLUVOXAMINE MALEATE PO SCH ×2 (08:43→21:20)
[2021-03-10] MEDS: PROTONIX TAB 40 MG PO SCH ×2 (08:43→21:20)
[2021-03-10] MEDS: ZyrTEC TAB 10 MG PO SCH (08:44)
[2021-03-10] MEDS: THIAMINE HCL INJ IVP SCH ×2 (08:44→21:21)
[2021-03-10] MEDS: LASIX IVP SCH (08:51)
[2021-03-10] MEDS: K-DUR TAB 20 MEQ PO PRN (08:52)
[2021-03-10] MEDS: PULMICORT NEB TX 0.5 MG NEB SCH ×2 (09:40→21:05)
[2021-03-10] MEDS: DIFLUCAN PO SCH (12:31)
[2021-03-10] MEDS: VSL#3 PO SCH (12:32)
--- NOTE | 2021-03-10 12:32 | PCM.PROG ---
Progress Note - Progress Note for Day of Date of Exam: 03/08/21 - Subjective Subjective: MS. SANDERS WAS ADMITTED ON 02/23 FOR TREATMENT OF COVID PNEUMONIA AND HYPOXIA. TODAY, SHE IS ALERT AND ORIENTED, LYING IN THE BED ON MORNING ROUNDS. SHE IS CURRENTLY UTILIZING OXYGEN VIA NASAL CANNULA AT 5 LITERS/MINUTE. SHE USED HEATED HIGH FLOW THROUGHOUT THE NIGHT. SHE REPORTS SLIGHT IMPROVEMENT IN SYMPTOMS SINCE YESTERDAY. HER SATURATIONS HAVE BEEN 86-94% THIS MORNING AND THROUGHOUT THE NIGHT. ON EXAMINATION, HEART IS REGULAR IN RATE AND RHYTHM. BILATERAL LUNGS ARE NOTED WITH WHEEZING THROUGHOUT. ABDOMEN IS ROUND, SOFT, AND NON-TENDER WITH NORMAL BOWEL SOUNDS NOTED IN ALL QUADRANTS. HIS VITALS THIS MORNING ARE: 98.8-72-20-91%-110/57. LABS WERE OBTAINED. ABNORMAL LAB VALUES INCLUDE THE FOLLOWING: WBC 22.7, HGB 11.4, HCT 33.8, D-DIMER 2.45, CHLORIDE 108, GLUCOSE 117, CALCIUM 7.3, TOTAL PROTEIN 5.1, ALBUMIN 2.3. ABG REVEALED: PH 7.500, PC02 35, P02 46, HC03 27.3, 02 SAT 86, BASE EXCESS 4.2, A-A GRADIENT 244, FI02 44.0. A CHEST XRAY WAS OBTAINED AND REVEALED: 1. Unchanged pneumonia. SHE IS CURRENTLY RECEIVING NS AT [facility], ZOSYN 4.5G IV TID, ASCORBIC ACID 1500MG IV Q6H, ALBUTEROL NEBS QID, PULMICORT NEBS BID, IV SOLU-MEDROL 125MG Q6H, FLUVOXAMINE 50MG PO BID, CYPROHEPTADINE 8MG PO TID, LOVENOX 100MG SC Q12H, LIPITOR 80MG PO HS, TESSALON PERLES 200MG PO TID, CETIRIZINE 10MG PO DAILY, TUSSIONEX Q12H PRN, NYSTATIN QID, MORPHINE SULFATE 2MG IV Q6H PRN, PEPCID 40MG PO BID, ROBITUSSIN DM 10ML PO QID PRN, HUMULIN R SLIDING SCALE, SINGULAIR 10MG PO HS, PROTONIX 40MG PO BID, MILK OF MAGNESIA 30ML PO BID, COLACE 100MG PO BID, THIAMINE 200MG IV BID, IV MORHPINE PRN, XANAX 0.5MG BID PRN, AND ZINC SULFATE 220MG PO BID. SHE IS WORKING WELL WITH PHYSICAL THERAPY. WE WILL CONTINUE WITH CURRENT PLAN OF CARE TODAY AND ATTEMPT TO WEAN DOWN OXYGEN SHE TOLERATES IT. OTHERWISE, WE WILL FOLLOW UP WITH AM LABS, CHEST XRAY, ABG, AND CONTINUE TO MONITOR. TIME SPENT ON CLINICAL ASSESSMENT, REVIEWING LABS AND IMAGING, DECISION MAKING, AND DOCUMENTATION GREATER THAN 45 MINUTES. - Past Medical Family Social History Past Med/Fam/Surg Hx: No changes since H&P Allergies: Allergies prednisone Adverse Reaction (Verified 02/23/21 13:08) anxiety, mouth ulcer high doses - Review of Systems ROS: No change since H&P - Vital Signs and I&O's Vital Signs: Temperature 99 F Pulse Rate [Left Brachial] 75 Pulse Rate 80 Respiratory Rate 20 Blood Pressure [Left Arm] 123/68 Blood Pressure 141/84 O2 Sat by Pulse Oximetry 91 Intake and Output: Intake & Output 03/08/21 03/09/21 03/10/21 03/11/21 11:59 11:59 11:59 11:59 Intake Total 2280 / 2280 2826 / 2826 2718 / 2718 Balance 2280 / 2280 2826 / 2826 2718 / 2718 - Physical Exam Oriented: Normal Eyes: Normal Ear: Normal Nose: Normal Throat: Normal Respiratory: Generalized, Diminished, Wheezes Cardiovascular: Normal : Normal Auscultation: Bowel Sounds: Normal Tenderness: Normal Skin: Normal Musculoskeletal: Normal Psychiatric: Normal Mood Description: Calm Affect: Normal Speech Pattern: Clear, Appropriate - Laboratory and Diagnostics Result Diagrams: 03/10/21 05:33 03/10/21 05:33 Labs: 03/07/21 11:45 Stool Stool Culture - Preliminary 03/07/21 11:45 Stool - Final 02/23/21 21:33 Blood Blood Culture - Final 02/23/21 18:39 Blood Blood Culture - Final Laboratory WBC 17.1 X10^3/uL (3.6-10.0) H 03/10/21 05:33 RBC 3.51 X10^6/uL (3.5-5.4) 03/10/21 05:33 Hgb 10.7 g/dL (12.0-16.0) L 03/10/21 05:33 Hct 31.5 % (36.0-47.0) L 03/10/21 05:33 MCV 89.6 fL (80.0-100.0) 03/10/21 05:33 MCH 30.4 pg (27.0-34.0) 03/10/21 05:33 MCHC 33.9 g/dL (33.0-35.0) 03/10/21 05:33 RDW 13.9 % (11.6-16.5) 03/10/21 05:33 Plt Count 164 X10^3/uL (150.0-450.0) 03/10/21 05:33 Plt Count Comment Adequate (ADEQUATE) 03/10/21 05:33 MPV 10.8 fL (7.4-11.0) 03/10/21 05:33 Neut % (Auto) 91.8 % (42.0-75.0) H 03/10/21 05:33 Lymph % (Auto) 4.7 % (21.0-51.0) L 03/10/21 05:33 [place] % (Auto) 3.4 % (0.0-13.0) 03/10/21 05:33 Eos % (Auto) 0.0 % (0.9-2.9) L 03/10/21 05:33 Baso % (Auto) 0.1 % (0.2-1.0) L 03/10/21 05:33 Neut # (Auto) 15.7 x10^3/uL (2.2-4.8) H 03/10/21 05:33 Lymph # (Auto) 0.8 X10^3/uL (1.3-2.9) L 03/10/21 05:33 [place] # (Auto) 0.6 x10^3/uL (0.3-0.8) 03/10/21 05:33 Eos # (Auto) 0.0 x10^3/uL (0.0-0.2) 03/10/21 05:33 Baso # (Auto) 0.0 X10^3/uL (0.0-0.1) 03/10/21 05:33 Absolute Nucleated RBC 0.0 /100WBC 03/10/21 05:33 Total Counted 100 03/10/21 05:33 Neutrophils % (Manual) 93 % (39-76) H 03/10/21 05:33 Band Neutrophils % 2 % (0-10) 03/10/21 05:33 Lymphocytes % (Manual) 3 % (13-43) L 03/10/21 05:33 Monocytes % (Manual) 2 % (4-9) L 03/10/21 05:33 Myelocytes % 1 02/26/21 05:45 Plt Morphology Comment Normal (NORMAL) 03/10/21 05:33 RBC Morphology Normal (NORMAL) 03/10/21 05:33 D-Dimer 1.25 ug/ml (0.0-0.57) H* 03/10/21 05:33 Sample Site R rad 03/10/21 06:25 ABG pH 7.520 (7.35-7.45) H 03/10/21 06:25 ABG pCO2 35.0 mmHg (35.0-45.0) 03/10/21 06:25 ABG pO2 41.0 mmHg (80.0-100.0) L* 03/10/21 06:25 ABG HCO3 28.6 mmol/L (22-26) H 03/10/21 06:25 ABG O2 Saturation 82.0 % (90-100) L* 03/10/21 06:25 ABG Base Excess 5.7 mmol/L (-2.0-2.0) H 03/10/21 06:25 Yuval Test Pos 03/10/21 06:25 A-a Gradient 229.0 mmHg 03/10/21 06:25 FiO2 44.0 03/10/21 06:25 Blood Gas Comments Jacy well kb 03/10/21 06:25 Sodium 144 mmol/L (136-145) 03/10/21 05:33 Corrected Sodium 145 mmol/L (136-145) 03/10/21 05:33 Potassium 3.4 mmol/L (3.5-5.1) L 03/10/21 05:33 Chloride 108 mmol/L (98-107) H 03/10/21 05:33 Carbon Dioxide 28.4 mmol/L (21-32) 03/10/21 05:33 BUN 14 mg/dL (7-18) 03/10/21 05:33 Creatinine 0.63 mg/dL (0.55-1.02) 03/10/21 05:33 Est GFR (MDRD) Af Amer > 60 (>60) 03/10/21 05:33 Est GFR (MDRD) Non-Af > 60 (>60) 03/10/21 05:33 Glucose 137 mg/dL (65-99) H 03/10/21 05:33 POC Glucose (mg/dL) 139 mg/dL (65-99) H 03/03/21 21:08 Lactic Acid 1.1 mmol/L (0.4-2.0) 02/23/21 18:39 Calcium 7.6 mg/dL (8.5-10.1) L 03/10/21 05:33 Corrected Calcium 9.0 mg/dL (8.5-10.1) 03/10/21 05:33 Magnesium 2.2 mg/dL (1.7-2.9) 03/06/21 03:50 Ferritin 221 ng/mL (8-252) 03/05/21 04:20 Total Bilirubin 0.40 mg/dL (0.2-1.0) 03/10/21 05:33 AST 22 Units/L (15-37) 03/10/21 05:33 ALT 45 Units/L (12-78) 03/10/21 05:33 Alkaline Phosphatase 53 Units/L (46-116) 03/10/21 05:33 Creatine Kinase 490 Units/L (26-192) H 02/23/21 21:33 CK-MB (CK-2) < 1.0 ng/mL (0-4.0) 02/23/21 21:33 CK/CKMB % Calc 0.2 % (<4) 02/23/21 21:33 Troponin I < 0.02 ng/mL (0-1.5) 02/23/21 21:33 C-Reactive Protein 0.80 mg/L (0-3.0) 03/10/21 05:33 B-Natriuretic Peptide 99.6 pg/mL (0-79) H 03/05/21 04:20 Total Protein 4.6 g/dL (6.4-8.2) L 03/10/21 05:33 Albumin 2.3 g/dL (3.4-5.0) L 03/10/21 05:33 Globulin 2.3 g/dL (2.5-4.5) L 03/10/21 05:33 Albumin/Globulin Ratio 1.0 Ratio (1.1-2.1) L 03/10/21 05:33 Specimen Type Catherized urine 02/24/21 09:08 Urine Color Yellow (YELLOW) 02/24/21 09:08 Urine Appearance Clear (CLEAR) 02/24/21 09:08 Urine pH 6.0 (5.0 - 8.0) 02/24/21 09:08 Ur Specific [place] 1.015 (1.000-1.030) 02/24/21 09:08 Urine Protein 2+ (NEGATIVE) 02/24/21 09:08 Urine Glucose (UA) Negative (NEGATIVE) 02/24/21 09:08 Urine Ketones 4+ (NEGATIVE) 02/24/21 09:08 Urine Occult Blood Negative (NEGATIVE) 02/24/21 09:08 Urine Nitrite Negative (NEGATIVE) 02/24/21 09:08 Urine Bilirubin Negative (NEGATIVE) 02/24/21 09:08 Urine Urobilinogen Normal (NORMAL) 02/24/21 09:08 Ur Leukocyte Esterase Negative (NEGATIVE) 02/24/21 09:08 Urine RBC 3-5 /HPF (0-3) A 02/24/21 09:08 Urine WBC 3-5 /HPF (0-5) 02/24/21 09:08 Ur Squamous Epith Cells Rare /HPF (NEGATIVE) 02/24/21 09:08 Urine Bacteria Negative /HPF (NEGATIVE) 02/24/21 09:08 Urine Mucus Few /HPF (NEGATIVE) 02/24/21 09:08 Ur Culture Indicated? No/not indicated 02/24/21 09:08 Stool Description Fob tube 03/07/21 11:45 Stool Description Liquid brown 40g 03/07/21 11:45 Stl Occult Blood (IFOB) Negative (NEGATIVE) 03/07/21 11:45 Stool for White Cells Positive (NEGATIVE) A 03/07/21 11:45 Stl C. diff Tox B Gene Negative (NEGATIVE) 03/07/21 11:45 Stl C. diff [id number] Presumptive negative (NEGATIVE) 03/07/21 11:45 Cryptosporid parvum Ag Negative (NEGATIVE) 03/07/21 11:45 Giardia lamblia Ag Negative (NEGATIVE) 03/07/21 11:45 SARS CoV-2 RNA Rapid PHILLIP Positive (NEGATIVE) A 02/23/21 14:05 - Plan (1) Pneumonia due to COVID-19 virus Status: Acute Plan: NS AT [facility], ZOSYN 4.5G IV TID, ASCORBIC ACID 1500MG IV Q6H, ALBUTEROL NEBS QID, PULMICORT NEBS BID, IV SOLU-MEDROL 125MG Q6H, FLUVOXAMINE 50MG PO BID, CYPROHEPTADINE 8MG PO TID, LOVENOX 100MG SC Q12H, LIPITOR 80MG PO HS, TESSALON PERLES 200MG PO TID, CETIRIZINE 10MG PO DAILY, TUSSIONEX Q12H PRN, MORPHINE SULFATE 2MG IV Q6H PRN, PEPCID 40MG PO BID, ROBITUSSIN DM 10ML PO QID PRN, HUMULIN R SLIDING SCALE, SINGULAIR 10MG PO HS, PROTONIX 40MG PO BID, MILK OF MAGNESIA 30ML PO BID, COLACE 100MG PO BID, THIAMINE 200MG IV BID, IV MORHPINE PRN, XANAX 0.5MG BID PRN, AND ZINC SULFATE 220MG PO BID. (2) Hypoxia Status: Acute
[2021-03-10] MEDS: SINGULAIR TAB 10 MG PO SCH (21:20)
[2021-03-10] MEDS: LIPITOR TAB 80 MG PO SCH (21:20)
[2021-03-10] MEDS: VISTARIL PO PRN (21:30)
[2021-03-11] MEDS: ASCORBIC ACID INJ MULTI-DOSE VIAL 1,500 MG in NS 50 ML IV 50 ML IV SCH ×4 (03:07→20:45)
[2021-03-11] MEDS: NS 1/2 1000 ML IV 1,000 ML IV SCH (03:07)
[2021-03-11] MEDS: SOLU-Medrol 125 MG VIAL IVP SCH ×4 (03:08→20:47)
[2021-03-11] MEDS: TESSALON PERLES PO SCH ×3 (05:11→21:35)
[2021-03-11] MEDS: ZOSYN VIAL 4.5 GRAMS 4.5 G in NS 100 ML IV + SPIKE MINIBAG* 100 ML IV SCH ×3 (05:11→21:35)
[2021-03-11] MEDS: MUCOMYST (RESPIRATORY USE ONLY) NEB SCH ×3 (06:04→21:50)
[2021-03-11] MEDS: ACCUNEB 1.25 MG NEBULE NEB SCH ×3 (06:04→21:51)
[2021-03-11 06:09] LABS: BASOPHILS % (AUTO) 0.1 % (0.2-1.0); HEMATOCRIT 34.2 % (36.0-47.0); HEMOGLOBIN 11.2 g/dL (12.0-16.0); LYMPHOCYTES # (AUTO) 0.7 X10^3/uL (1.3-2.9); LYMPHOCYTES % (AUTO) 3.5 % (21.0-51.0); MEAN CORPUSCULAR HGB CONC 32.9 g/dL (33.0-35.0); MEAN CORPUSCULAR VOLUME 91.1 fL (80.0-100.0); MEAN PLATELET VOLUME 10.6 fL (7.4-11.0); MONOCYTES # (AUTO) 0.2 x10^3/uL (0.3-0.8); MONOCYTES % (AUTO) 1.3 % (0.0-13.0); NEUTROPHILS # (AUTO) 17.7 x10^3/uL (2.2-4.8); NEUTROPHILS % (AUTO) 95.1 % (42.0-75.0); PLATELET COUNT 170 X10^3/uL (150.0-450.0); RED BLOOD COUNT 3.75 X10^6/uL (3.5-5.4); RED CELL DISTRIBUTION WIDTH 14.1 % (11.6-16.5); WHITE BLOOD COUNT 18.6 X10^3/uL (3.6-10.0)
[2021-03-11 06:17] LABS: ALANINE AMINOTRANSFERASE 46 Units/L (12-78); ALBUMIN 2.4 g/dL (3.4-5.0); ALKALINE PHOSPHATASE 61 Units/L (46-116); ASPARTATE AMINO TRANSFERASE 23 Units/L (15-37); BLOOD UREA NITROGEN 17 mg/dL (7-18); CALCIUM 7.7 mg/dL (8.5-10.1); CARBON DIOXIDE 28.1 mmol/L (21-32); CHLORIDE 109 mmol/L (98-107); COR NA(FOR HYPERGLY) 147 mmol/L (136-145); CREATININE 0.68 mg/dL (0.55-1.02); SODIUM 145 mmol/L (136-145); TOTAL PROTEIN 5.1 g/dL (6.4-8.2); eGFR NON BLACK RACES > 60 (>60)
--- NOTE | 2021-03-11 06:39 | RAD ---
HISTORYSOB, COVID+ PSH: HYST, ORTHOSTUDYCHEST, 1 [id number]/2021 isFINDINGSThe trachea is midline. The cardiac silhouette is stable. Diffuse bilateral airspace disease, unchanged. No pneumothorax. The bony thorax is unremarkable.IMPRESSIONStable portable chestElectronically signed by: Jordy Fiore (Mar 11, 2021 06:37:26)
[2021-03-11 06:44] LABS: BAND NEUTROPHILS % 1 % (0-10)
[2021-03-11 06:45] LABS: PLATELET MORPHOLOGY COMMENT NORMAL (NORMAL)
[2021-03-11] MEDS: PULMICORT NEB TX 0.5 MG NEB SCH ×2 (09:07→21:51)
[2021-03-11] MEDS: COLACE CAP 100 MG PO SCH ×2 (09:13→20:45)
[2021-03-11] MEDS: DIFLUCAN PO SCH ×2 (09:13→09:26)
[2021-03-11] MEDS: LOVENOX INJ 100 MG SYR SC SCH ×2 (09:14→20:46)
[2021-03-11] MEDS: FLUVOXAMINE MALEATE PO SCH ×2 (09:14→20:45)
[2021-03-11] MEDS: MILK OF MAGNESIA PO SCH ×2 (09:15→20:46)
[2021-03-11] MEDS: PEPCID TAB 40 MG PO SCH ×2 (09:15→20:46)
[2021-03-11] MEDS: NYSTATIN SUSP MT SCH ×4 (09:15→20:46)
[2021-03-11] MEDS: VITAMIN D3 125 mcg (5,000 UNITS) PO SCH (09:19)
[2021-03-11] MEDS: ZyrTEC TAB 10 MG PO SCH (09:19)
[2021-03-11] MEDS: VSL#3 PO SCH (09:19)
[2021-03-11] MEDS: THIAMINE HCL INJ IVP SCH ×2 (09:19→20:47)
[2021-03-11] MEDS: ZINC SULFATE PO SCH (09:25)
[2021-03-11] MEDS: PROTONIX TAB 40 MG PO SCH ×2 (09:25→20:46)
--- NOTE | 2021-03-11 12:19 | PCM.PROG ---
Progress Note - Progress Note for Day of Date of Exam: 03/11/21 - Subjective Subjective: MS. SANDERS WAS ADMITTED ON 02/23 FOR TREATMENT OF COVID PNEUMONIA AND HYPOXIA. TODAY, SHE IS ALERT AND ORIENTED, LYING IN THE BED ON MORNING ROUNDS. SHE IS CURRENTLY UTILIZING OXYGEN VIA NASAL CANNULA AT 6 LITERS/MINUTE. SHE USED HEATED HIGH FLOW THROUGHOUT THE NIGHT. SHE REPORTS SLIGHT IMPROVEMENT IN SYMPTOMS SINCE YESTERDAY. HER SATURATIONS HAVE BEEN 84-92% THIS MORNING AND THROUGHOUT THE NIGHT. ON EXAMINATION, HEART IS REGULAR IN RATE AND RHYTHM. BILATERAL LUNGS ARE NOTED WITH WHEEZING THROUGHOUT. ABDOMEN IS ROUND, SOFT, AND NON-TENDER WITH NORMAL BOWEL SOUNDS NOTED IN ALL QUADRANTS. HIS VITALS THIS MORNING ARE: 98.6-76-22-85%-155/75. LABS WERE OBTAINED. ABNORMAL LAB VALUES INCLUDE THE FOLLOWING: WBC 18.6, HGB 11.2, HCT 34.2, D-DIMER 1.28, POTASSIUM 3.1, GLUCOSE 177, CALCIUM 7.7, TOTAL PROTEIN 5.1, ALBUMIN 2.4. ABG REVEALED: PH 7.520, PC02 35, P02 41, HC03 28.6, 02 SAT 82, BASE EXCESS 5.7, A-A GRADIENT 229, FI02 44. A CHEST XRAY WAS OBTAINED AND REVEALED: The trachea is midline. The cardiac silhouette is stable. Diffuse bilateral airspace disease, unchanged. No pneumothorax. The bony thorax is unremarkable. SHE IS CURRENTLY RECEIVING NS AT [facility], ZOSYN 4.5G IV TID, ASCORBIC ACID 1500MG IV Q6H, ALBUTEROL NEBS QID, PULMICORT NEBS BID, IV SOLU-MEDROL 125MG Q6H, FLUVOXAMINE 50MG PO BID, CYPROHEPTADINE 8MG PO TID, LOVENOX 100MG SC Q12H, LIPITOR 80MG PO HS, DIFLUCAN 100MG PO DAILY, TESSALON PERLES 200MG PO TID, CETIRIZINE 10MG PO DAILY, TUSSIONEX Q12H PRN, NYSTATIN QID, MORPHINE SULFATE 2MG IV Q6H PRN, PEPCID 40MG PO BID, ROBITUSSIN DM 10ML PO QID PRN, HUMULIN R SLIDING SCALE, SINGULAIR 10MG PO HS, PROTONIX 40MG PO BID, MILK OF MAGNESIA 30ML PO BID, COLACE 100MG PO BID, THIAMINE 200MG IV BID, IV MORHPINE PRN, XANAX 0.5MG BID PRN, AND ZINC SULFATE 220MG PO BID. SHE IS WORKING WELL WITH PHYSICAL THERAPY. WE WILL CONTINUE WITH CURRENT PLAN OF CARE TODAY AND ATTEMPT TO WEAN DOWN OXYGEN SHE TOLERATES IT. OTHERWISE, WE WILL FOLLOW UP WITH AM LABS, CHEST XRAY, ABG, AND CONTINUE TO MONITOR. TIME SPENT ON CLINICAL ASSESSMENT, REVIEWING LABS AND IMAGING, DECISION MAKING, AND DOCUMENTATION GREATER THAN 45 MINUTES. - Past Medical Family Social History Past Med/Fam/Surg Hx: No changes since H&P Allergies: Allergies prednisone Adverse Reaction (Verified 02/23/21 13:08) anxiety, mouth ulcer high doses - Review of Systems ROS: No change since H&P - Vital Signs and I&O's Vital Signs: Temperature 99.2 F Pulse Rate [Left Brachial] 75 Pulse Rate 76 Respiratory Rate 22 Blood Pressure [Left Arm] 123/68 Blood Pressure 137/65 O2 Sat by Pulse Oximetry 86 Intake and Output: Intake & Output 03/09/21 03/10/21 03/11/21 03/12/21 11:59 11:59 11:59 11:59 Intake Total 2826 / 2826 2718 / 2718 2661 / 2661 Balance 2826 / 2826 2718 / 2718 2661 / 2661 - Physical Exam Oriented: Normal Eyes: Normal Ear: Normal Nose: Normal Throat: Normal Respiratory: Generalized, Diminished, Wheezes Cardiovascular: Normal : Normal Auscultation: Bowel Sounds: Normal Tenderness: Normal Skin: Normal Musculoskeletal: Normal Psychiatric: Normal Mood Description: Calm Affect: Normal Speech Pattern: Clear, Appropriate - Laboratory and Diagnostics Result Diagrams: 03/11/21 05:01 03/11/21 05:01 Labs: 03/07/21 11:45 Stool Stool Culture - Preliminary 03/07/21 11:45 Stool - Final 02/23/21 21:33 Blood Blood Culture - Final 02/23/21 18:39 Blood Blood Culture - Final Laboratory WBC 18.6 X10^3/uL (3.6-10.0) H 03/11/21 05:01 RBC 3.75 X10^6/uL (3.5-5.4) 03/11/21 05:01 Hgb 11.2 g/dL (12.0-16.0) L 03/11/21 05:01 Hct 34.2 % (36.0-47.0) L 03/11/21 05:01 MCV 91.1 fL (80.0-100.0) 03/11/21 05:01 MCH 30.0 pg (27.0-34.0) 03/11/21 05:01 MCHC 32.9 g/dL (33.0-35.0) L 03/11/21 05:01 RDW 14.1 % (11.6-16.5) 03/11/21 05:01 Plt Count 170 X10^3/uL (150.0-450.0) 03/11/21 05:01 Plt Count Comment Adequate (ADEQUATE) 03/11/21 05:01 MPV 10.6 fL (7.4-11.0) 03/11/21 05:01 Neut % (Auto) 95.1 % (42.0-75.0) H 03/11/21 05:01 Lymph % (Auto) 3.5 % (21.0-51.0) L 03/11/21 05:01 [place] % (Auto) 1.3 % (0.0-13.0) 03/11/21 05:01 Eos % (Auto) 0.0 % (0.9-2.9) L 03/11/21 05:01 Baso % (Auto) 0.1 % (0.2-1.0) L 03/11/21 05:01 Neut # (Auto) 17.7 x10^3/uL (2.2-4.8) H 03/11/21 05:01 Lymph # (Auto) 0.7 X10^3/uL (1.3-2.9) L 03/11/21 05:01 [place] # (Auto) 0.2 x10^3/uL (0.3-0.8) L 03/11/21 05:01 Eos # (Auto) 0.0 x10^3/uL (0.0-0.2) 03/11/21 05:01 Baso # (Auto) 0.0 X10^3/uL (0.0-0.1) 03/11/21 05:01 Absolute Nucleated RBC 0.1 /100WBC 03/11/21 05:01 Total Counted 100 03/11/21 05:01 Neutrophils % (Manual) 93 % (39-76) H 03/11/21 05:01 Band Neutrophils % 1 % (0-10) 03/11/21 05:01 Lymphocytes % (Manual) 3 % (13-43) L 03/11/21 05:01 Monocytes % (Manual) 3 % (4-9) L 03/11/21 05:01 Myelocytes % 1 02/26/21 05:45 Plt Morphology Comment Normal (NORMAL) 03/11/21 05:01 RBC Morphology Normal (NORMAL) 03/11/21 05:01 D-Dimer 1.28 ug/ml (0.0-0.57) H* 03/11/21 05:01 Sample Site R rad 03/10/21 06:25 ABG pH 7.520 (7.35-7.45) H 03/10/21 06:25 ABG pCO2 35.0 mmHg (35.0-45.0) 03/10/21 06:25 ABG pO2 41.0 mmHg (80.0-100.0) L* 03/10/21 06:25 ABG HCO3 28.6 mmol/L (22-26) H 03/10/21 06:25 ABG O2 Saturation 82.0 % (90-100) L* 03/10/21 06:25 ABG Base Excess 5.7 mmol/L (-2.0-2.0) H 03/10/21 06:25 Yuval Test Pos 03/10/21 06:25 A-a Gradient 229.0 mmHg 03/10/21 06:25 FiO2 44.0 03/10/21 06:25 Blood Gas Comments Jacy well kb 03/10/21 06:25 Sodium 145 mmol/L (136-145) 03/11/21 05:01 Corrected Sodium 147 mmol/L (136-145) H 03/11/21 05:01 Potassium 3.1 mmol/L (3.5-5.1) L 03/11/21 05:01 Chloride 109 mmol/L (98-107) H 03/11/21 05:01 Carbon Dioxide 28.1 mmol/L (21-32) 03/11/21 05:01 BUN 17 mg/dL (7-18) 03/11/21 05:01 Creatinine 0.68 mg/dL (0.55-1.02) 03/11/21 05:01 Est GFR (MDRD) Af Amer > 60 (>60) 03/11/21 05:01 Est GFR (MDRD) Non-Af > 60 (>60) 03/11/21 05:01 Glucose 177 mg/dL (65-99) H 03/11/21 05:01 POC Glucose (mg/dL) 139 mg/dL (65-99) H 03/03/21 21:08 Lactic Acid 1.1 mmol/L (0.4-2.0) 02/23/21 18:39 Calcium 7.7 mg/dL (8.5-10.1) L 03/11/21 05:01 Corrected Calcium 9.0 mg/dL (8.5-10.1) 03/11/21 05:01 Magnesium 2.2 mg/dL (1.7-2.9) 03/06/21 03:50 Ferritin 221 ng/mL (8-252) 03/05/21 04:20 Total Bilirubin 0.40 mg/dL (0.2-1.0) 03/11/21 05:01 AST 23 Units/L (15-37) 03/11/21 05:01 ALT 46 Units/L (12-78) 03/11/21 05:01 Alkaline Phosphatase 61 Units/L (46-116) 03/11/21 05:01 Creatine Kinase 490 Units/L (26-192) H 02/23/21 21:33 CK-MB (CK-2) < 1.0 ng/mL (0-4.0) 02/23/21 21:33 CK/CKMB % Calc 0.2 % (<4) 02/23/21 21:33 Troponin I < 0.02 ng/mL (0-1.5) 02/23/21 21:33 C-Reactive Protein 0.80 mg/L (0-3.0) 03/10/21 05:33 B-Natriuretic Peptide 99.6 pg/mL (0-79) H 03/05/21 04:20 Total Protein 5.1 g/dL (6.4-8.2) L 03/11/21 05:01 Albumin 2.4 g/dL (3.4-5.0) L 03/11/21 05:01 Globulin 2.7 g/dL (2.5-4.5) 03/11/21 05:01 Albumin/Globulin Ratio 0.9 Ratio (1.1-2.1) L 03/11/21 05:01 Specimen Type Catherized urine 02/24/21 09:08 Urine Color Yellow (YELLOW) 02/24/21 09:08 Urine Appearance Clear (CLEAR) 02/24/21 09:08 Urine pH 6.0 (5.0 - 8.0) 02/24/21 09:08 Ur Specific [place] 1.015 (1.000-1.030) 02/24/21 09:08 Urine Protein 2+ (NEGATIVE) 02/24/21 09:08 Urine Glucose (UA) Negative (NEGATIVE) 02/24/21 09:08 Urine Ketones 4+ (NEGATIVE) 02/24/21 09:08 Urine Occult Blood Negative (NEGATIVE) 02/24/21 09:08 Urine Nitrite Negative (NEGATIVE) 02/24/21 09:08 Urine Bilirubin Negative (NEGATIVE) 02/24/21 09:08 Urine Urobilinogen Normal (NORMAL) 02/24/21 09:08 Ur Leukocyte Esterase Negative (NEGATIVE) 02/24/21 09:08 Urine RBC 3-5 /HPF (0-3) A 02/24/21 09:08 Urine WBC 3-5 /HPF (0-5) 02/24/21 09:08 Ur Squamous Epith Cells Rare /HPF (NEGATIVE) 02/24/21 09:08 Urine Bacteria Negative /HPF (NEGATIVE) 02/24/21 09:08 Urine Mucus Few /HPF (NEGATIVE) 02/24/21 09:08 Ur Culture Indicated? No/not indicated 02/24/21 09:08 Stool Description Fob tube 03/07/21 11:45 Stool Description Liquid brown 40g 03/07/21 11:45 Stl Occult Blood (IFOB) Negative (NEGATIVE) 03/07/21 11:45 Stool for White Cells Positive (NEGATIVE) A 03/07/21 11:45 Stl C. diff Tox B Gene Negative (NEGATIVE) 03/07/21 11:45 Stl C. diff [id number] Presumptive negative (NEGATIVE) 03/07/21 11:45 Cryptosporid parvum Ag Negative (NEGATIVE) 03/07/21 11:45 Giardia lamblia Ag Negative (NEGATIVE) 03/07/21 11:45 SARS CoV-2 RNA Rapid PHILLIP Positive (NEGATIVE) A 02/23/21 14:05 - Plan (1) Pneumonia due to COVID-19 virus Status: Acute Plan: NS AT [facility], ZOSYN 4.5G IV TID, ASCORBIC ACID 1500MG IV Q6H, ALBUTEROL NEBS QID, PULMICORT NEBS BID, IV SOLU-MEDROL 125MG Q6H, FLUVOXAMINE 50MG PO BID, CYPROHEPTADINE 8MG PO TID, LOVENOX 100MG SC Q12H, LIPITOR 80MG PO HS, TESSALON PERLES 200MG PO TID, CETIRIZINE 10MG PO DAILY, TUSSIONEX Q12H PRN, MORPHINE SULFATE 2MG IV Q6H PRN, PEPCID 40MG PO BID, ROBITUSSIN DM 10ML PO QID PRN, HUMULIN R SLIDING SCALE, SINGULAIR 10MG PO HS, PROTONIX 40MG PO BID, MILK OF MAGNESIA 30ML PO BID, COLACE 100MG PO BID, THIAMINE 200MG IV BID, IV MORHPINE [place] N, XANAX 0.5MG BID PRN, AND ZINC SULFATE 220MG PO BID. (2) Hypoxia Status: Acute
[2021-03-11] MEDS: LIPITOR TAB 80 MG PO SCH (20:46)
[2021-03-11] MEDS: SINGULAIR TAB 10 MG PO SCH (20:47)
[2021-03-11] MEDS: VISTARIL PO PRN (20:47)
[2021-03-11] MEDS: K-DUR TAB 20 MEQ PO PRN (22:18)
[2021-03-12] MEDS: ASCORBIC ACID INJ MULTI-DOSE VIAL 1,500 MG in NS 50 ML IV 50 ML IV SCH ×3 (02:38→15:10)
[2021-03-12] MEDS: SOLU-Medrol 125 MG VIAL IVP SCH ×3 (02:39→15:10)
[2021-03-12] MEDS: TESSALON PERLES PO SCH ×2 (05:12→15:09)
[2021-03-12] MEDS: ZOSYN VIAL 4.5 GRAMS 4.5 G in NS 100 ML IV + SPIKE MINIBAG* 100 ML IV SCH ×2 (05:12→15:09)
[2021-03-12] MEDS: ACCUNEB 1.25 MG NEBULE NEB SCH ×2 (06:13→14:10)
[2021-03-12] MEDS: MUCOMYST (RESPIRATORY USE ONLY) NEB SCH ×2 (06:13→14:10)
--- NOTE | 2021-03-12 06:39 | RAD ---
HISTORYSOBSTUDYCHEST, 1 [id number]/13/2021.TECHNIQUEAP chest, 2 images.FINDINGSThe cardiac silhouette is stably enlarged. Mediastinal contours appear stable. No significant change in diffuse bilateral airspace opacities. No definite pleural effusion or pneumothorax.IMPRESSIONNo significant change.Electronically signed by: Kishor Ricci (Mar 12, 2021 06:37:58)
[2021-03-12] MEDS: PULMICORT NEB TX 0.5 MG NEB SCH (08:10)
[2021-03-12] MEDS: PEPCID TAB 40 MG PO SCH (09:04)
[2021-03-12] MEDS: VITAMIN D3 125 mcg (5,000 UNITS) PO SCH (09:04)
[2021-03-12] MEDS: COLACE CAP 100 MG PO SCH (09:05)
[2021-03-12] MEDS: ZINC SULFATE PO SCH (09:05)
[2021-03-12] MEDS: PROTONIX TAB 40 MG PO SCH (09:05)
[2021-03-12] MEDS: DIFLUCAN PO SCH (09:06)
[2021-03-12] MEDS: VSL#3 PO SCH (09:06)
[2021-03-12] MEDS: FLUVOXAMINE MALEATE PO SCH (09:22)
[2021-03-12] MEDS: MILK OF MAGNESIA PO SCH (09:22)
[2021-03-12] MEDS: THIAMINE HCL INJ IVP SCH (09:22)
[2021-03-12] MEDS: ZyrTEC TAB 10 MG PO SCH (09:30)
[2021-03-12] MEDS: LOVENOX INJ 100 MG SYR SC SCH (11:21)
[2021-03-12] MEDS: NYSTATIN SUSP MT SCH ×2 (11:21→14:00)
[2021-03-12 13:28] VITALS: BP 138/80
== END 2021-03-12 15:15 | disposition home or self-care (01) | DRG 177 ==
LOC: ER 12:58 → OBS 17:13 → MED/SURG 02-24 15:23 → ICU 03-02 14:22 → MED/SURG 03-07 12:26
PROVIDERS: ADMIT Internal Medicine; ATTEND Internal Medicine
DX: U07.1 COVID-19; J12.81 Pneumonia due to SARS-associated coronavirus; R09.02 Hypoxemia